=== PATIENT | female | born 1960 | race American Indian/Alaskan Native ===

== ENCOUNTER 2016-10-12 10:41 | Day surgery (SDC) | payer MEDICAID ==
--- NOTE | 2016-10-12 12:43 | Anesthesia Consultation ---
Anesthesia Consult and Med Hx Date of service: 10/12/16 - Airway Anesthetic Teeth Evaluation: Poor (missing teeth), Chipped, Caps, Crowns ROM Head & Neck: Adequate Mental/Hyoid Distance: Adequate Mallampati Class: Class IV Intubation Access Assessment: Possibly Difficult - Pulmonary Exam CTA: Yes - Cardiac Exam Cardiac Exam: RRR - Pre-Operative Health Status ASA Pre-Surgery Classification: ASA3 Proposed Anesthetic Plan: MAC - Pulmonary Hx Smoking: No - Cardiovascular System Hx Hypertension: Yes - Gastrointestinal Hx Ulcer: Yes - Endocrine Hx Liver Disease: Yes (Hepatitis C in remission) Hx Insulin Dependent Diabetes: Yes - Hematic Hx Anemia: No Hx Sickle Cell Disease: No - Other Systems Hx Alcohol Use: No Hx Substance Use: No Hx Cancer: No Hx Obesity: No - Additional Comments Anesthesia Medical History Comments: high cholesterol
--- NOTE | 2016-10-12 12:49 | History and Physical Report ---
History of Present Illness Date of examination: 10/12/16 Date of admission: 10/12/2016 Chief complaint: Colorectal cancer screening History of present illness: 56 year old female referred for colorectal cancer screening. Denies any complaints Past History Past Medical History: diabetes, hypertension, hyperlipidemia Medications and Allergies Allergies Allergy/AdvReac Type Severity Reaction Status Date / Time codeine Allergy Swelling Verified 07/11/16 09:05 Home Medications Medication Instructions Recorded Confirmed Last Taken Type Atorvastatin (Nf) [Lipitor] 10 mg PO QHS 08/11/13 08/11/13 08/11/13 History Hydralazine HCl [Apresoline TAB] 50 mg PO Q12H 08/11/13 08/11/13 Unknown History Lisinopril/Hydrochlorothiazide 10 mg PO DAILY 08/11/13 08/11/13 Unknown History [Zestoretic 20-12.5 mg] Metformin HCl [Fortamet ER] 1,000 mg PO BID 08/11/13 08/11/13 Unknown History Nizatidine 300 mg PO QHS 08/11/13 08/11/13 Unknown History Simvastatin [Zocor TAB] 20 mg PO HS 08/11/13 08/11/13 Unknown History Ziprasidone HCl [Geodon] 80 mg PO DAILY 08/11/13 08/11/13 Unknown History carBAMazepine [TEGretol] 200 mg PO HS 08/11/13 08/11/13 Unknown History clonazePAM [KlonoPIN] 1 mg PO 08/11/13 08/11/13 Unknown History diphenhydrAMINE [Benadryl CAP] 50 mg PO HS 08/11/13 08/11/13 Unknown History Butalb/Acetaminophen/Caffeine 1 cap PO Q8HR PRN #30 cap 07/11/16 Unknown Rx [Fioricet 50-300-40 mg CAP] Active Meds: Active Medications Sodium Chloride (Nacl 0.9% 1000 Ml) 1,000 mls @ 50 mls/hr IV DIRECT YAHIR Last Admin: 10/12/16 12:38 Dose: 50 mls/hr Review of Systems All systems: negative Exam - Constitutional Vitals: Temp Pulse Resp BP Pulse Ox 98.3 F 68 13 120/77 97 10/12/16 12:24 10/12/16 12:24 10/12/16 12:24 10/12/16 12:24 10/12/16 12:24 General appearance: Present: no acute distress, well-nourished - EENT Eyes: Present: PERRL ENT: hearing intact, clear oral mucosa - Neck Neck: Present: supple, normal ROM - Respiratory Respiratory effort: normal Respiratory: bilateral: CTA - Cardiovascular Heart Sounds: Present: S1 & S2. Absent: rub, click - Extremities Extremities: pulses symmetrical, No edema Peripheral Pulses: within normal limits - Abdominal General gastrointestinal: Present: soft, non-tender, non-distended, normal bowel sounds Female genitourinary: Present: normal - Integumentary Integumentary: Present: clear, warm, dry - Musculoskeletal Musculoskeletal: gait normal, strength equal bilaterally - Psychiatric Psychiatric: appropriate mood/affect, intact judgment & insight - Neurologic Neurologic: CNII-XII intact, moves all extremities Assessment and Plan Coloprectal cancer screening. Plan: Full colonoscopy
--- NOTE | 2016-10-12 12:51 | Operative Report ---
Operative Report Operative Report: Date of procedure: 10/12/2016 Procedure: Colonoscopy with ablation. Attending physician: Ronald Luna MD Golf Caddie: Ronald Luna MD Indication: Patient is a 56-year-old female who presents for screening colonoscopy. A colonoscopy is done to evaluate patient so treatment may be directed based on the findings. Consent: Informed consent was obtained after advising the patient and family regarding nature of this procedure, its indications, potential benefits as well as possible complications including but not limited to bleeding perforation and adverse reaction to medication, infection as well as other cardiopulmonary complications. An informed written and verbal consent was then obtained after due opportunity was provided for questions and answers. Monitoring: Patient was monitored continuously with pulse oximetry and electrocardiographic recordings as well as blood pressure recordings. Vital signs remained stable throughout this procedure with no untoward events. Preoperative assessment: Patient was assessed immediately prior to this procedure for capacity to tolerate monitored anesthesia care and moderate sedation as well as general anesthesia. Patient's ASA classification is 2, Mallampati class is 2, Hyomental distance is 3. Instrument: Fujinon videocolonoscope Medications: Propofol given intravenously in divided doses. For details please refer to anesthesia records. Description of procedure: Patient was placed in the left lateral decubitus position after achieving sedation, a digital rectal examination was performed following which the colonoscope was introduced into the anal verge and advanced to the cecum which was identified by the cecal valve, the appendiceal orifice, as well as by the cecal strap and direct transillumination. The colonoscope was subsequently withdrawn with careful inspection of all mucosal surfaces. Patient tolerated this procedure well and was subsequently taken to the recovery room. The following findings were noted. Findings: There was liquid stool seen in various sections of the colon. There was a few scattered diverticula seen in the sigmoid colon. There was a somewhat irregular mucosal surface seen in the transverse colon. This area was ablated . On the retroflex view at the anal verge, patient had internal hemorrhoids. Impression: Irregular mucosal surface in the transverse colon status post ablation. Mild Colonic diverticulosis. Retained stool. Internal hemorrhoids. Plan:High-fiber diet. Repeat colonoscopy in 5 years.
[2016-10-12] MEDS ORDERED: XYLOCAINE MPF 2% ONE (12:57)
[2016-10-12] MEDS ORDERED: NACL 0.9% 1000 ML 1,000 ML IV SCH (13:00)
[2016-10-12] MEDS ORDERED: GI SPOT IJ ONE (13:07)
--- NOTE | 2016-10-12 13:31 | Discharge Summary ---
Short Stay Discharge Plan Activity: advance as tolerated Weight Bearing Status: Weight Bear as Tolerated Diet: regular
--- NOTE | 2016-10-12 13:34 | Post Anesthesia Evaluation ---
- Post Anesthesia Evaluation Patient Participated: Yes Airway Patent: Yes Stable Respiratory Function: Yes Nausea/Vomiting: No Temp > 96.8F: Yes Pain Manageable: Yes Adequeate Hydration: Yes Anesthesia Complications: No Block Receding Appropriately: Not Applicable Patient on Ventilator: No
[2016-10-12] MEDS ORDERED: DIPRIVAN 10 MG/ML IV ONE ×3 (14:15)
[2016-10-12 15:51] VITALS: BP 124/88
== END 2016-10-12 10:42 | disposition home or self-care (01) ==
LOC: GIO 10:41
PROVIDERS: ATTEND Internal Medicine Gastroenterology
DX: Z12.11 Encounter for screening for malignant neoplasm of colon (principal); K63.89 Other specified diseases of intestine; K57.30 Diverticulosis of large intestine without perforation or abscess without bleeding; K64.8 Other hemorrhoids; E11.9 Type 2 diabetes mellitus without complications; I10 Essential (primary) hypertension; E78.5 Hyperlipidemia, unspecified; B19.20 Unspecified viral hepatitis C without hepatic coma; Z87.19 Personal history of other diseases of the digestive system
CPT/HCPCS: 45388; 82962; J2704

== ENCOUNTER 2016-10-15 08:14 | Inpatient (IN) | payer MEDICAID ==
[2016-10-15 08:43] LABS: Basophils % (Auto) 0.5 % (0.0-1.8); Eosinophils % (Auto) 0.2 % (0.0-4.3); Hematocrit 38.2 % (30.3-42.9); Hemoglobin 12.4 gm/dl (10.1-14.3); Mean Corpuscular HGB Conc 33 % (30-34); Mean Corpuscular Hemoglobin 31 pg (28-32); Mean Corpuscular Volume 95 fl (79-97); Platelet Count 234 K/mm3 (140-440); Red Blood Count 4.01 M/mm3 (3.65-5.03); Red Cell Distribution Width 12.6 % (13.2-15.2); White Blood Count 10.2 K/mm3 (4.5-11.0)
[2016-10-15 09:03] LABS: Alanine Aminotransferase 23 units/L (7-56); Albumin 3.9 g/dL (3.9-5); Alkaline Phosphatase 54 units/L (35-129); Anion Gap 20 mmol/L; BUN/Creatinine Ratio 9.09; Bilirubin,Total 0.4 mg/dL (0.1-1.2); Blood Urea Nitrogen 10 mg/dL (7-17); Calcium 9.2 mg/dL (8.4-10.2); Carbon Dioxide 25 mmol/L (22-30); Chloride 98.1 mmol/L (98-107); Glucose 217 mg/dL (65-100); Lipase 31 units/L (13-60); Potassium 3.9 mmol/L (3.6-5.0); Sodium 139 mmol/L (137-145)
[2016-10-15 09:08] LABS: Bacteria,Urine 1+ /HPF (Negative); Bilirubin,Urine NEG (Negative); Blood,Urine NEG (Negative); Ketones,Urine NEG (Negative); Leukocyte Esterase,Urine MOD (Negative); Mucus,Urine FEW /HPF; Nitrite,Urine NEG (Negative); Urobilinogen,Urine < 2.0 mg/dL (<2.0)
[2016-10-15] MEDS ORDERED: ZOFRAN ODT ONE (11:12)
[2016-10-15] MEDS ORDERED: NACL 0.9% 1000 ML IV ONE (11:30)
[2016-10-15] MEDS ORDERED: TORADOL IV ONE ×2 (13:39→13:41)
--- NOTE | 2016-10-15 14:14 | Emergency Department Report ---
HPI - General Chief Complaint: Abdominal Pain Time Seen by Provider: 10/15/16 11:10 - HPI HPI: Chief complaint: Right flank pain HPI: Patient is a 56-year-old female with a history of diabetes, hypertension and elevated cholesterol complains of right flank pain 2 days. Patient denies fever or dysuria. Patient states she did have some nausea and vomiting today. Patient denies previous history of kidney stones. Patient has been taking her medications and states her sugars have been well-controlled. Mode of arrival: [private car] Source: [Patient] Began: 2 days Duration: Continuous Context: See above Quality: Sharp Severity: 10 out of 10 Improved with: Nothing Worsened with: Palpation Associated signs and symptoms: See above ED Past Medical Hx - Past Medical History Previous Medical History?: Yes Hx Hypertension: Yes Hx Diabetes: Yes Hx Liver Disease: Yes (Hepatitis C in remission) Hx Arthritis: Yes Hx Headaches / Migraines: Yes (MIGRAINES) Hx Psychiatric Treatment: Yes Additional medical history: high cholesterol, bipolar, schizophrenia, manic , hep c - Surgical History Past Surgical History?: Yes Additional Surgical History: Tubaligation - Social History Smoking Status: Former Smoker Substance Use Type: Prescribed - Medications Home Medications: Home Medications Medication Instructions Recorded Confirmed Last Taken Type Atorvastatin (Nf) [Lipitor] 10 mg PO QHS 08/11/13 10/12/16 10/10/16 History Hydralazine HCl [Apresoline TAB] 50 mg PO Q12H 08/11/13 10/12/16 10/10/16 History Lisinopril/Hydrochlorothiazide 10 mg PO DAILY 08/11/13 10/12/16 10/10/16 History [Zestoretic 20-12.5 mg] Metformin HCl [Fortamet ER] 1,000 mg PO BID 08/11/13 10/12/16 10/10/16 History Nizatidine 300 mg PO QHS 08/11/13 10/12/16 Unknown History Simvastatin [Zocor TAB] 20 mg PO HS 08/11/13 10/12/16 10/10/16 History Ziprasidone HCl [Geodon] 80 mg PO DAILY 08/11/13 10/12/16 10/10/16 History carBAMazepine [TEGretol] 200 mg PO HS 08/11/13 10/12/16 10/10/16 History clonazePAM [KlonoPIN] 1 mg PO DAILY 08/11/13 10/12/16 Unknown History diphenhydrAMINE [Benadryl CAP] 50 mg PO HS 08/11/13 10/12/16 10/10/16 History Butalb/Acetaminophen/Caffeine 1 cap PO Q8HR PRN #30 cap 07/11/16 10/12/16 Unknown Rx [Fioricet 50-300-40 mg CAP] ED Review of Systems ROS: Stated complaint: RT SIDE PAIN Other details as noted in HPI ROS Constitutional: No fever ENT: No uri symptoms Cardiovascular: No chest pain Respiratory: No sob or cough GI: No diarrhea : No dysuria frequency or urgency, Skin: No rash Neuro: No focal weakness or numbness Psych: Bipolar Chilo/lymph: No edema Physical Exam - Physical Exam Vital Signs: Vital Signs 10/15/16 10/15/16 10/15/16 08:26 11:22 13:41 Temperature 98.8 F 99.9 F H Pulse Rate 92 H Respiratory 18 20 18 Rate Blood Pressure 108/76 O2 Sat by Pulse 100 Oximetry Physical Exam: GENERAL: The patient is well-developed well-nourished. HEENT: Normocephalic. Atraumatic. Extraocular motions are intact. Patient has moist mucous membranes. NECK: Supple. No meningitic signs are noted. There is no adenopathy noted. CHEST/LUNGS: Clear to auscultation. There is no respiratory distress noted. HEART/CARDIOVASCULAR: Regular. There is no tachycardia. There is no gallop rub or murmur. ABDOMEN: Abdomen is soft, nontender. Patient has normal bowel sounds. There is no abdominal distention. Right flank tenderness. SKIN: There is no rash. There is no edema. There is no diaphoresis. NEURO: The patient is awake, alert, and oriented. The patient is cooperative. The patient has no focal neurologic deficits. The patient has normal speech. MUSCULOSKELETAL: There is no tenderness or deformity. There is no limitation range of motion. There is no evidence of acute injury. ED Course Vital Signs 10/15/16 10/15/16 10/15/16 08:26 11:22 13:41 Temperature 98.8 F 99.9 F H Pulse Rate 92 H Respiratory 18 20 18 Rate Blood Pressure 108/76 O2 Sat by Pulse 100 Oximetry - Reevaluation(s) Reevaluation #1: 10/15/16 14:14 Patient given a liter of normal saline, 30 mg of IV Toradol and 1 g of IV Rocephin. ED Medical Decision Making - Lab Data Result diagrams: 10/15/16 08:33 10/15/16 08:33 Laboratory Tests 10/15/16 Unknown Ur Specific [place] 1.020 Urine Protein 100 mg/dl Ur Leukocyte Esterase Mod Urine WBC (Auto) 85.0 H Urine RBC (Auto) 13.0 U Epithel Cells (Auto) 1.0 Urine Bacteria (Auto) 1+ - Radiology Data Radiology results: report reviewed (CT scan of the abdomen without contrast shows a questionable mass in the right kidney. Will repeat with IV contrast.) interpreted by me: Reviewed second CT scan with IV contrast with the radiologist he states he is concerned that patient may have an abscess to the right kidney. Critical care attestation.: If time is entered above; I have spent that time in minutes in the direct care of this critically ill patient, excluding procedure time. ED Disposition Clinical Impression: Pyelonephritis, Hyperglycemia, Renal abscess, right Disposition: OP ADMITTED IP TO THIS HOSP Is pt being admited?: Yes Does the pt Need Aspirin: No Condition: Fair Instructions: Abdominal Pain (ED) Referrals: [facility] [Other] - 3-5 Days Time of Disposition: 15:57 (admit to the hospitalist)
[2016-10-15] MEDS ORDERED: ROCEPHIN/NS 1 GM/50 ML 1 GM/50 ML BAG IV ONE (14:16)
[2016-10-15] MEDS ORDERED: NACL ONE ×3 (14:32→14:40)
--- NOTE | 2016-10-15 14:55 | Admit Criteria Form ---
Admission Criteria Documentation: PYELONEPHRITIS, ACUTE Clinical Indications for Admission to Inpatient Care (Place 'X' for any and all applicable criteria): Admission is indicated for ANY ONE of the following 1,2,3,4,5 [ ]I. Outpatient treatment has failed or is not feasible (eg, multidrug- resistant organism).5 [ ]II. beyond 24 weeks' gestation6 [ ]III. Hemodynamic instability [X ]IV. Immunocompromised state (eg, AIDS, diabetes, sickle cell disease) [ ]V. Known renal or urologic abnormalities (eg, indwelling catheter, structural abnormalities, renal calculi, urinary stent, previous urologic surgery) [X ]. Condition that requires drainage procedure, including ANY ONE of the following: [ ]a) Urinary obstruction [ ]b) Pyelitis [ ]c) Pyonephrosis [ X]d) Renal or perinephric abscess [ ]e) Emphysematous pyelonephritis 7 [ ]VII. Inpatient admission required rather than observation care (Also use Pyelonephritis, Acute: Observation Care Criteria as appropriate) because of ANY ONE of the following: [ ]a) High fever or infection requiring inpatient admission as indicated by ANY ONE of [id number] [ ]A. Documented bacteremia [ ]B. Temp>104.9 [id number] (oral) [ ]C. Temp>103.10F (oral) or <96.80F (rectal) that does not respond to all emergency treatment [ ]b) Acute renal failure [ ]c) Other significant finding or clinical condition judged not to be within the scope of observation care [ ]d) IV fluid to replace significant ongoing (eg, for over 24hrs) losses (> 3 L/m2 per day) [ ]e) Other condition,treatment or monitoring requiring inpatient admission The original [facility] content created by [employer] has been revised. The portions of the content which have been revised are identified through the use of italic text or in bold, and [facility] has neither reviewed nor approved the modified material. All other unmodified content is copyright [facility] [employer] [facility] [employer] Please see references footnoted in the original [facility] [employer] edition 2016 Admission Criteria Met: Yes
--- NOTE | 2016-10-15 16:03 | Cat Scan Report ---
CT of the abdomen and pelvis with and without IV contrast. History: Right flank pain. Findings: The liver, spleen, and pancreas are normal.. On the precontrast study, there is an ill-defined round hypodensity in the upper pole of the right kidney measuring approximately 2.9 cm. The margins are indistinct in the internal CT numbers measure greater than water density. There is perinephric stranding on the right. After contrast administration, the upper pole lesion remains hypodense with no internal enhancement. However, the margins remain somewhat indistinct and slightly lobulated. There appears to be an internal septation in the cephalad component of this lesion. A 1 cm in diameter simple cyst is seen in the lower pole of the left kidney which is otherwise normal. There are no pelvic masses or abnormal fluid collections. The uterus and adnexal regions are unremarkable. Impression: 1. 2.9 cm hypodense mass in the upper pole of the right kidney without enhancement. There is slight lobulation, internal septation, and internal CT numbers on the precontrast study greater than water. Given the clinical symptoms and perinephric stranding, the differential considerations are between renal abscess versus complex renal cyst. After appropriate medical management, repeat imaging in 4-6 weeks is recommended to assess interval change. 2. Left simple renal cyst.
[2016-10-15] MEDS ORDERED: TYLENOL PO ONE (19:28)
[2016-10-15] MEDS ORDERED: TYLENOL ONE (19:41)
[2016-10-15] MEDS ORDERED: FIORICET PO PRN (23:24)
[2016-10-15] MEDS ORDERED: ZOFRAN IV PRN (23:31)
--- NOTE | 2016-10-15 23:34 | Event Note ---
Date: 10/15/16 See H/p in reports
[2016-10-16] MEDS: NACL 0.9% 1000 ML 1,000 ML IV SCH (00:31)
[2016-10-16] MEDS: APRESOLINE PO SCH ×3 (00:31→22:10)
[2016-10-16] MEDS: DILAUDID IV PRN (00:36)
[2016-10-16] MEDS ORDERED: GLUCOPHAGE XR PO SCH (08:00)
--- NOTE | 2016-10-16 09:11 | History and Physical Report ---
CHIEF COMPLAINT: Right flank pain for 2 days. HISTORY OF PRESENT ILLNESS: A 56-year-old -[place] female with a history of hypertension, diabetes, hepatitis C, ____, osteoarthritis, and migraines comes in for right flank pain of 2 days' duration. Denies fever and chills. Denies dysuria. She has pain of 8 on a scale 1-10. This is the first episode. Denies any history of kidney stones. The patient states that diabetes is well controlled. No hematuria. PAST MEDICAL HISTORY: As mentioned hypertension, diabetes, hepatitis C in remission, arthritis, migraines, psychiatric treatment, high cholesterol, bipolar disorder, schizophrenia, manic depressive, and hepatitis C. SURGICAL HISTORY: Tubal ligation. SOCIAL HISTORY: Former smoker. CURRENT MEDICATIONS: Lipitor 10 mg p.o. daily, hydralazine 50 mg p.o. q.12h., Zestoretic 20/12.5 daily, metformin 1000 mg twice a day, nizatidine 300 mg p.o. at bedtime, simvastatin 20 mg p.o. at bedtime, Geodon 80 mg p.o. daily, Tegretol 200 mg p.o. at bedtime, Klonopin 1 mg p.o. daily, Benadryl 50 mg p.o. at bedtime, Fioricet 1 capsule p.o. q.8h. p.r.n. FAMILY HISTORY: Significant for hypertension. REVIEW OF SYSTEMS: CONSTITUTIONAL: No fever. No chills. No weight loss. No weight gain. HEENT: No sore throat. No postnasal drip. CVS: No chest pain. No palpitations. No shortness of breath on exertion. RESPIRATORY SYSTEM: No cough. No wheezing. GASTROINTESTINAL: No nausea. No vomiting. GENITOURINARY SYSTEM: Right flank pain present. No dysuria. MUSCULOSKELETAL: No joint pain. No muscle pain. CHILD CARE CENTRE DIRECTOR: No syncope. No seizures. SKIN: No rashes. A 14-point review of systems was done; other than right flank pain essentially normal review of systems. PHYSICAL EXAMINATION: GENERAL: On examination, middle-aged female, cooperative during examination. Lying in bed, in slight pain pointing to the abdomen. VITAL SIGNS: Temperature 98.8, pulse is 92, respirations are 18, blood pressure is 108/76, and sats 100%. HEENT: Unremarkable. Pupils equal and reactive. NECK: Supple. No lymphadenopathy. No thyromegaly. LUNGS: Clear to auscultation and percussion. Good air entry. CVS: S1 and S2 heard. No gallop. No murmur. No rub. Apical impulse in left fifth intercostal space and midclavicular line. ABDOMEN: Soft and benign. Right flank tenderness present. Cardiac slight guarding present in the right flank. Suprapubic, no tenderness. EXTREMITIES: Good pedal pulses. No pedal edema. CHILD CARE CENTRE DIRECTOR: Alert and oriented x4. Nonfocal exam. LABORATORY DATA AND IMAGING STUDIES: CT of the abdomen shows questionable access right kidney. Glucose is 217, BUN and creatinine 10 and 1.1, hemoglobin is 12.4, hematocrit is 38.2, and urine WBC is 85. Urine specific gravity is 1.020. ASSESSMENT AND PLAN: 1. Acute pyelonephritis versus perinephric abscess. ___ acute pyelonephritis given her tenderness, no fever, no chills, and temperature 98.8. We will involve the Urology, but I will start the patient on IV Rocephin 2 gm and IV piggyback 24, pending urine cultures. Urology consulted. 2. Hyperlipidemia. Continue Lipitor 10 mg daily. 3. Hypertension. Continue lisinopril and hydralazine. 4. Type 2 diabetes mellitus. Continue metformin and coverage. 5. Bipolar disorder. Continue with Geodon, Klonopin, and Tegretol 200 mg at bedtime. 6. Headaches. Continue Fioricet q.8 p.r.n. 7. Deep venous thrombosis prophylaxis, Lovenox 40 mg subcutaneous daily. JOB# [id number] [facility]/NTS
[2016-10-16] MEDS: GEODON PO SCH (09:45)
[2016-10-16] MEDS: NOVOLOG SUB-Q SCH ×4 (09:46→22:19)
[2016-10-16] MEDS: ZESTRIL PO SCH (09:47)
[2016-10-16] MEDS: HCTZ PO SCH (09:49)
[2016-10-16] MEDS: LEVAQUIN 750MG/150ML 750 MG/150 ML BAG IV SCH (09:55)
[2016-10-16] MEDS ORDERED: ROCEPHIN/NS 2 GM/100 ML 2 GM/100 ML BAG IV SCH (10:00)
[2016-10-16] MEDS ORDERED: ROCEPHIN 2,000 MG in NACL 0.9% 50 ML IV SCH (10:00)
--- NOTE | 2016-10-16 12:28 | Consultation ---
History of Present Illness - Reason for Consult Consult date: 10/16/16 - History of Present Illness Chief complaint: Right flank pain HPI: Patient is a 56-year-old female with a history of diabetes, hypertension and elevated cholesterol complains of right flank pain 2 days. Patient denies fever or dysuria. Patient states she did have some nausea and vomiting today. Patient denies previous history of kidney stones. Patient has been taking her medications and states her sugars have been well-controlled. CTAP (10-15-16) 2.3 CM MASS IN RT RENAL UPPER POLE(CYST VS ABSCESS) A/P RT FLANK PAIN CYST VS ABSCESS DIABETES (GLUCOSE 200) OBS FOR NOW MAY NEED PERC DRAINAGE ON LEVAQUIN Medications and Allergies Allergies Allergy/AdvReac Type Severity Reaction Status Date / Time codeine Allergy Intermediate Swelling Verified 10/15/16 18:16 Home Medications Medication Instructions Recorded Confirmed Last Taken Type Atorvastatin (Nf) [Lipitor] 40 mg PO QHS 08/11/13 10/15/16 10/10/16 History Hydralazine HCl [Apresoline TAB] 50 mg PO Q12H 08/11/13 10/15/16 10/10/16 History Lisinopril/Hydrochlorothiazide 10 mg PO DAILY 08/11/13 10/15/16 10/10/16 History [Zestoretic 20-12.5 mg] Metformin HCl [Fortamet ER] 500 mg PO BID 08/11/13 10/15/16 10/10/16 History Simvastatin [Zocor TAB] 20 mg PO HS 08/11/13 10/15/16 10/10/16 History Ziprasidone HCl [Geodon] 80 mg PO DAILY 08/11/13 10/15/16 10/10/16 History carBAMazepine [TEGretol] 200 mg PO HS 08/11/13 10/15/16 10/10/16 History clonazePAM [KlonoPIN] 1 mg PO DAILY 08/11/13 10/15/16 Unknown History diphenhydrAMINE [Benadryl CAP] 50 mg PO HS 08/11/13 10/15/16 10/10/16 History Butalb/Acetaminophen/Caffeine 1 cap PO Q8HR PRN #30 cap 07/11/16 10/15/16 Unknown Rx [Fioricet 50-300-40 mg CAP] Active Meds: Active Medications Acetaminophen/Butalbital/Caffeine (Fioricet) 1 tab PO Q8H PRN PRN Reason: Migraine Headache Atorvastatin Calcium (Lipitor) 40 mg PO QHS YAHIR Carbamazepine (Tegretol) 200 mg PO HS [facility] Clonazepam (Klonopin) 1 mg PO Q12HR [facility] Last Admin: 10/16/16 09:45 Dose: 1 mg Diphenhydramine HCl (Benadryl) 50 mg PO HS [facility] Enoxaparin Sodium (Lovenox) 40 mg SUB-Q QDAY@2200 YAHIR Hydralazine HCl (Apresoline) 50 mg PO Q12HR [facility] Last Admin: 10/16/16 09:48 Dose: Not Given Hydrochlorothiazide (Hctz) 12.5 mg PO QDAY [facility] Last Admin: 10/16/16 09:49 Dose: Not Given Hydromorphone HCl (Dilaudid) 1 mg IV Q3H PRN PRN Reason: Pain , Severe (7-10) Last Admin: 10/16/16 00:36 Dose: 1 mg Sodium Chloride (Nacl 0.9% 1000 Ml) 1,000 mls @ 75 mls/hr IV DIRECT [facility] Last Admin: 10/16/16 00:31 Dose: 75 mls/hr Levofloxacin/Dextrose (Levaquin 750mg/150ml) 750 mg in 150 mls @ 100 mls/hr IV Q24HR [facility] PRN Reason: Protocol Last Admin: 10/16/16 09:55 Dose: 100 mls/hr Insulin Aspart (Novolog) 0 units SUB-Q ACHS [facility] PRN Reason: Protocol Last Admin: 10/16/16 12:07 Dose: 2 units Lisinopril (Zestril) 20 mg PO DAILY [facility] Last Admin: 10/16/16 09:47 Dose: 20 mg Metformin HCl (Glucophage Xr) 500 mg PO BIDDIAB [facility] Last Admin: 10/16/16 09:43 Dose: 500 mg Ondansetron HCl (Zofran) 4 mg IV Q3H PRN PRN Reason: Nausea And Vomiting Ziprasidone (Geodon) 80 mg PO DAILY [facility] Last Admin: 10/16/16 09:45 Dose: 80 mg Exam - Constitutional Vitals: Temp Pulse Resp BP Pulse Ox 98.3 F 90 18 109/80 97 10/16/16 08:00 10/16/16 09:48 02/24/17 08:00 10/16/16 09:48 10/16/16 08:00 Results - Labs CBC & Chem 7: 10/15/16 08:33 10/15/16 08:33
[2016-10-16] MEDS ORDERED: D50W (25GM) IV PRN (14:24)
--- NOTE | 2016-10-16 14:36 | Progress Note ---
Assessment and Plan Assessment and plan: Right kidney abscess versus complex cyst, with sepsis - Patient is on IV Levaquin - Patient still shoots fever - Urology consulted and recommended conservative management for now - ID consulted DM type II with hyperglycemia - Sliding scale insulin - We will hold insulin for now Prophylaxis - Lovenox Disposition - Continue inpatient care History Interval history: Patient was seen and evaluated this morning, patient complains of right flank pain, patient has fever overnight. Hospitalist Physical - Physical exam Narrative exam: Not in cardiopulmonary distress. The patient appeared well nourished and normally developed. Vital signs as documented. Head exam is unremarkable. No scleral icterus . Neck is without jugular venous distension, thyromegaly, or carotid bruits. Lungs are clear to auscultation. Cardiac exam reveals regular rate and Rhythm. First and second heart sounds normal. No murmurs, rubs or gallops. Abdominal exam reveals right flank tenderness. Extremities are nonedematous and both femoral and pedal pulses are normal. CANE PUSHER: Alert and oriented 3. No focal weakness. - Constitutional Vitals: Temp Pulse Resp BP Pulse Ox 98.3 F 90 18 109/80 97 10/16/16 08:00 10/16/16 09:48 10/16/16 08:00 10/16/16 09:48 10/16/16 08:00 Results - Labs CBC & Chem 7: 10/15/16 08:33 10/15/16 08:33 Labs: Laboratory Last Values WBC 10.2 K/mm3 (4.5-11.0) 10/15/16 08:33 RBC 4.01 M/mm3 (3.65-5.03) 10/15/16 08:33 Hgb 12.4 gm/dl (10.1-14.3) 10/15/16 08:33 Hct 38.2 % (30.3-42.9) 10/15/16 08:33 MCV 95 fl (79-97) 10/15/16 08:33 MCH 31 pg (28-32) 10/15/16 08:33 MCHC 33 % (30-34) 10/15/16 08:33 RDW 12.6 % (13.2-15.2) L 10/15/16 08:33 Plt Count 234 K/mm3 (140-440) 10/15/16 08:33 Lymph % (Auto) 14.8 % (13.4-35.0) 10/15/16 08:33 [place] % (Auto) 8.8 % (0.0-7.3) H 10/15/16 08:33 Eos % (Auto) 0.2 % (0.0-4.3) 10/15/16 08:33 Baso % (Auto) 0.5 % (0.0-1.8) 10/15/16 08:33 Lymph # 1.5 K/mm3 (1.2-5.4) 10/15/16 08:33 [place] # 0.9 K/mm3 (0.0-0.8) H 10/15/16 08:33 Eos # 0.0 K/mm3 (0.0-0.4) 10/15/16 08:33 Baso # 0.1 K/mm3 (0.0-0.1) 10/15/16 08:33 Seg Neutrophils % 75.7 % (40.0-70.0) H 10/15/16 08:33 Seg Neutrophils # 7.7 K/mm3 (1.8-7.7) 10/15/16 08:33 Sodium 139 mmol/L (137-145) 10/15/16 08:33 Potassium 3.9 mmol/L (3.6-5.0) 10/15/16 08:33 Chloride 98.1 mmol/L (98-107) 10/15/16 08:33 Carbon Dioxide 25 mmol/L (22-30) 10/15/16 08:33 Anion Gap 20 mmol/L 10/15/16 08:33 BUN 10 mg/dL (7-17) 10/15/16 08:33 Creatinine 1.1 mg/dL (0.7-1.2) 10/15/16 08:33 Estimated GFR > 60 ml/min 10/15/16 08:33 BUN/Creatinine Ratio 9.09 % 10/15/16 08:33 Glucose 217 mg/dL (65-100) H 10/15/16 08:33 POC Glucose 99 (70-105) 10/16/16 06:26 Calcium 9.2 mg/dL (8.4-10.2) 10/15/16 08:33 Total Bilirubin 0.4 mg/dL (0.1-1.2) 10/15/16 08:33 AST 21 units/L (5-40) 10/15/16 08:33 ALT 23 units/L (7-56) 10/15/16 08:33 Alkaline Phosphatase 54 units/L (35-129) 10/15/16 08:33 Total Protein 8.0 g/dL (6.3-8.2) 10/15/16 08:33 Albumin 3.9 g/dL (3.9-5) 10/15/16 08:33 Albumin/Globulin Ratio 1.0 % 10/15/16 08:33 Lipase 31 units/L (13-60) 10/15/16 08:33 Urine Color Yellow (Yellow) 10/15/16 Unknown Urine Turbidity Slightly-cloudy (Clear) 10/15/16 Unknown Urine pH 5.0 (5.0-7.0) 10/15/16 Unknown Ur Specific [place] 1.020 (1.003-1.030) 10/15/16 Unknown Urine Protein 100 mg/dl mg/dL (Negative) 10/15/16 Unknown Urine Glucose (UA) Neg mg/dL (Negative) 10/15/16 Unknown Urine Ketones Neg mg/dL (Negative) 10/15/16 Unknown Urine Blood Neg (Negative) 10/15/16 Unknown Urine Nitrite Neg (Negative) 10/15/16 Unknown Urine Bilirubin Neg (Negative) 10/15/16 Unknown Urine Urobilinogen < 2.0 mg/dL (<2.0) 10/15/16 Unknown Ur Leukocyte Esterase Mod (Negative) 10/15/16 Unknown Urine WBC (Auto) 85.0 /HPF (0.0-6.0) H 10/15/16 Unknown Urine RBC (Auto) 13.0 /HPF (0.0-6.0) 10/15/16 Unknown U Epithel Cells (Auto) 1.0 /HPF (0-13.0) 10/15/16 Unknown Urine Bacteria (Auto) 1+ /HPF (Negative) 10/15/16 Unknown Urine Mucus Few /HPF 10/15/16 Unknown
--- NOTE | 2016-10-16 15:38 | Consultation ---
History of Present Illness - Reason for Consult Consult date: 10/16/16 Right renal cyst/abscess - History of Present Illness The patient is a 56-year-old female who presents with right flank pain extending into her right inguinal region. A CT of the abdomen and pelvis was performed which demonstrates an area of decreased attenuation within the upper pole of the right kidney which may represent a complex cyst versus abscess. There is minimal perirenal stranding around the upper pole. Patient became febrile overnight. She is currently stable vital signs. She complains of a several day history of worsening right flank pain as well as a several day history of increased urinary urgency. Medications and Allergies Allergies Allergy/AdvReac Type Severity Reaction Status Date / Time codeine Allergy Intermediate Swelling Verified 10/15/16 18:16 Home Medications Medication Instructions Recorded Confirmed Last Taken Type Atorvastatin (Nf) [Lipitor] 40 mg PO QHS 08/11/13 10/15/16 10/10/16 History Hydralazine HCl [Apresoline TAB] 50 mg PO Q12H 08/11/13 10/15/16 10/10/16 History Lisinopril/Hydrochlorothiazide 10 mg PO DAILY 08/11/13 10/15/16 10/10/16 History [Zestoretic 20-12.5 mg] Metformin HCl [Fortamet ER] 500 mg PO BID 08/11/13 10/15/16 10/10/16 History Simvastatin [Zocor TAB] 20 mg PO HS 08/11/13 10/15/16 10/10/16 History Ziprasidone HCl [Geodon] 80 mg PO DAILY 08/11/13 10/15/16 10/10/16 History carBAMazepine [TEGretol] 200 mg PO HS 08/11/13 10/15/16 10/10/16 History clonazePAM [KlonoPIN] 1 mg PO DAILY 08/11/13 10/15/16 Unknown History diphenhydrAMINE [Benadryl CAP] 50 mg PO HS 08/11/13 10/15/16 10/10/16 History Butalb/Acetaminophen/Caffeine 1 cap PO Q8HR PRN #30 cap 07/11/16 10/15/16 Unknown Rx [Fioricet 50-300-40 mg CAP] Active Meds: Active Medications Acetaminophen/Butalbital/Caffeine (Fioricet) 1 tab PO Q8H PRN PRN Reason: Migraine Headache Atorvastatin Calcium (Lipitor) 40 mg PO QHS COUNTS INCLUDE 234 BEDS AT THE [facility] Carbamazepine (Tegretol) 200 mg PO HS COUNTS INCLUDE 234 BEDS AT THE [facility] Clonazepam (Klonopin) 1 mg PO Q12HR COUNTS INCLUDE 234 BEDS AT THE [facility] Last Admin: 10/16/16 09:45 Dose: 1 mg Dextrose (D50w (25gm)) 50 ml IV PRN PRN PRN Reason: Hypoglycemia Diphenhydramine HCl (Benadryl) 50 mg PO HS COUNTS INCLUDE 234 BEDS AT THE [facility] Enoxaparin Sodium (Lovenox) 40 mg SUB-Q QDAY@2200 YAHIR Hydralazine HCl (Apresoline) 50 mg PO Q12HR COUNTS INCLUDE 234 BEDS AT THE [facility] Last Admin: 10/16/16 09:48 Dose: Not Given Hydrochlorothiazide (Hctz) 12.5 mg PO QDAY COUNTS INCLUDE 234 BEDS AT THE [facility] Last Admin: 10/16/16 09:49 Dose: Not Given Hydromorphone HCl (Dilaudid) 1 mg IV Q3H PRN PRN Reason: Pain , Severe (7-10) Last Admin: 10/16/16 00:36 Dose: 1 mg Sodium Chloride (Nacl 0.9% 1000 Ml) 1,000 mls @ 75 mls/hr IV DIRECT COUNTS INCLUDE 234 BEDS AT THE [facility] Last Admin: 10/16/16 00:31 Dose: 75 mls/hr Levofloxacin/Dextrose (Levaquin 750mg/150ml) 750 mg in 150 mls @ 100 mls/hr IV Q24HR COUNTS INCLUDE 234 BEDS AT THE [facility] PRN Reason: Protocol Last Admin: 10/16/16 09:55 Dose: 100 mls/hr Insulin Aspart (Novolog) 0 units SUB-Q ACHS COUNTS INCLUDE 234 BEDS AT THE [facility] PRN Reason: Protocol Last Admin: 10/16/16 12:07 Dose: 2 units Insulin Detemir (Levemir) 10 units SUB-Q QHS COUNTS INCLUDE 234 BEDS AT THE [facility] Lisinopril (Zestril) 20 mg PO DAILY COUNTS INCLUDE 234 BEDS AT THE [facility] Last Admin: 10/16/16 09:47 Dose: 20 mg Ondansetron HCl (Zofran) 4 mg IV Q3H PRN PRN Reason: Nausea And Vomiting Ziprasidone (Geodon) 80 mg PO DAILY COUNTS INCLUDE 234 BEDS AT THE [facility] Last Admin: 10/16/16 09:45 Dose: 80 mg Review of Systems All systems: negative Exam - Constitutional Vitals: Temp Pulse Resp BP Pulse Ox 98.3 F 90 18 109/80 97 10/16/16 08:00 10/16/16 09:48 10/16/16 08:00 10/16/16 09:48 10/16/16 08:00 General appearance: Present: no acute distress - EENT Eyes: Present: PERRL ENT: hearing intact - Neck Neck: Present: supple, normal ROM - Respiratory Respiratory effort: normal - Abdominal General gastrointestinal: Present: tender (to palpation over the kidney on the right. No guarding.) Female genitourinary: Present: deferred - Rectal Rectal Exam: deferred - Integumentary Integumentary: Present: clear - Psychiatric Psychiatric: appropriate mood/affect, cooperative Results - Labs CBC & Chem 7: 10/15/16 08:33 10/15/16 08:33 - Imaging and Cardiology CT scan - abdomen: report reviewed, image reviewed Assessment and Plan Patient with a history of right flank pain who developed a fever overnight. She is currently receiving appropriate medical management. If there is no significant response, the patient may undergo percutaneous CT-guided needle aspiration of the fluid collection within the right upper pole of her kidney.
[2016-10-16] MEDS: TYLENOL PO PRN (16:09)
--- NOTE | 2016-10-16 20:49 | Consultation ---
History of Present Illness - Reason for Consult Consult date: 10/16/16 SEPSIS Requesting physician: DAHLIA YATES - History of Present Illness Patient is a 56 yo female with multiple medical problems who presented to the hospital with two day history of right flank pain with associated fever. Patient also had nausea. CT andomen showed a fluid collection in the upper pole of the right kidney with associated strandling. Urine culture is growing gram negative rods hence infectious disease consult. I saw patient at bedside. She denied any other symptoms at this time. PMH DM2 and htn Physical exam Patient had fever of 103. Chest - good air entry CVS - S1S2 ABDOMEN - Did not allow. extremities - No edema. LABS See lab section. ASSESSMENT 1. Sepsis sec to 2. right renal abscess UTI DM2 Recommendation 1. blood culture x2 2. Continue levaquin iv 3. cbc/bmp in am 4. Will reevaluate abx if fever persists. Medications and Allergies Allergies Allergy/AdvReac Type Severity Reaction Status Date / Time codeine Allergy Intermediate Swelling Verified 10/15/16 18:16 Home Medications Medication Instructions Recorded Confirmed Last Taken Type Atorvastatin (Nf) [Lipitor] 40 mg PO QHS 08/11/13 10/15/16 10/10/16 History Hydralazine HCl [Apresoline TAB] 50 mg PO Q12H 08/11/13 10/15/16 10/10/16 History Lisinopril/Hydrochlorothiazide 10 mg PO DAILY 08/11/13 10/15/16 10/10/16 History [Zestoretic 20-12.5 mg] Metformin HCl [Fortamet ER] 500 mg PO BID 08/11/13 10/15/16 10/10/16 History Simvastatin [Zocor TAB] 20 mg PO HS 08/11/13 10/15/16 10/10/16 History Ziprasidone HCl [Geodon] 80 mg PO DAILY 08/11/13 10/15/16 10/10/16 History carBAMazepine [TEGretol] 200 mg PO HS 08/11/13 10/15/16 10/10/16 History clonazePAM [KlonoPIN] 1 mg PO DAILY 08/11/13 10/15/16 Unknown History diphenhydrAMINE [Benadryl CAP] 50 mg PO HS 08/11/13 10/15/16 10/10/16 History Butalb/Acetaminophen/Caffeine 1 cap PO Q8HR PRN #30 cap 07/11/16 10/15/16 Unknown Rx [Fioricet 50-300-40 mg CAP] Active Meds: Active Medications Acetaminophen (Tylenol) 650 mg PO Q6H PRN PRN Reason: Pain, Mild (1-3) Last Admin: 10/16/16 16:09 Dose: 650 mg Acetaminophen/Butalbital/Caffeine (Fioricet) 1 tab PO Q8H PRN PRN Reason: Migraine Headache Atorvastatin Calcium (Lipitor) 40 mg PO QHS [facility] Carbamazepine (Tegretol) 200 mg PO HS [facility] Clonazepam (Klonopin) 1 mg PO Q12HR [facility] Last Admin: 10/16/16 09:45 Dose: 1 mg Dextrose (D50w (25gm)) 50 ml IV PRN PRN PRN Reason: Hypoglycemia Diphenhydramine HCl (Benadryl) 50 mg PO HS [facility] Enoxaparin Sodium (Lovenox) 40 mg SUB-Q QDAY@2200 YAHIR Hydralazine HCl (Apresoline) 50 mg PO Q12HR [facility] Last Admin: 10/16/16 09:48 Dose: Not Given Hydrochlorothiazide (Hctz) 12.5 mg PO QDAY [facility] Last Admin: 10/16/16 09:49 Dose: Not Given Hydromorphone HCl (Dilaudid) 1 mg IV Q3H PRN PRN Reason: Pain , Severe (7-10) Last Admin: 10/16/16 00:36 Dose: 1 mg Sodium Chloride (Nacl 0.9% 1000 Ml) 1,000 mls @ 75 mls/hr IV DIRECT [facility] Last Admin: 10/16/16 00:31 Dose: 75 mls/hr Levofloxacin/Dextrose (Levaquin 750mg/150ml) 750 mg in 150 mls @ 100 mls/hr IV Q24HR YAHIR PRN Reason: Protocol Last Admin: 10/16/16 09:55 Dose: 100 mls/hr Insulin Aspart (Novolog) 0 units SUB-Q ACHS YAHIR PRN Reason: Protocol Last Admin: 10/16/16 17:00 Dose: Not Given Insulin Detemir (Levemir) 10 units SUB-Q QHS [facility] Lisinopril (Zestril) 20 mg PO DAILY [facility] Last Admin: 10/16/16 09:47 Dose: 20 mg Ondansetron HCl (Zofran) 4 mg IV Q3H PRN PRN Reason: Nausea And Vomiting Ziprasidone (Geodon) 80 mg PO DAILY YAHIR Last Admin: 10/16/16 09:45 Dose: 80 mg Physical Examination - Constitutional Vitals: Vital Signs Temp Pulse Resp BP Pulse Ox 100.4 F H 96 H 18 127/82 97 10/16/16 18:00 10/16/16 16:00 10/16/16 16:00 10/16/16 16:00 10/16/16 10:00 Temperature -Last 24 Hours Temperature 100.4 F Temperature 103 F Temperature 98.3 F Temperature 102.9 F Results - Labs CBC & Chem 7: 10/15/16 08:33 10/15/16 08:33 Labs: Abnormal lab results 10/16/16 10/16/16 10/16/16 Range/Units 11:24 14:57 16:21 POC Glucose 174 H 111 H (70-105) Hemoglobin A1c 6.4 H (4-6) %
[2016-10-16] MEDS: BENADRYL PO SCH (22:09)
[2016-10-16] MEDS: LOVENOX SUB-Q SCH (22:10)
[2016-10-16] MEDS: LEVEMIR SUB-Q SCH (22:11)
--- NOTE | 2016-10-17 01:54 | Consultation ---
REASON FOR CONSULTATION: Right renal abscess. REFERRING PHYSICIAN: Gena Alexis MD HISTORY OF PRESENT ILLNESS: This is a 56-year-old female presented to the Emergency Room with right flank pain. She has a history of diabetes. CT of abdomen and pelvis revealed a 2 cm cyst versus abscess. She has a history of diabetes, hypertension, and hyperlipidemia. PHYSICAL EXAMINATION: GENERAL: She is alert and oriented. VITAL SIGNS: Temperature on admission 102.9, now 98, respirations 18, pulse 90, and BP 109/80. BACK: No CVA tenderness. ABDOMEN: Soft. LABORATORY DATA: Hemoglobin and hematocrit of 12 and 38 respectively, white count 10,000, platelets 234,000. BUN and creatinine of 10 and 1.1 respectively. Glucose 217. ASSESSMENT: Right renal mass versus abscess, 2 cm; diabetes, poorly controlled, glucose 217. PLAN: Continue antibiotic therapy. The patient may continue antibiotic therapy and observation at this time. She may require CT drainage of this mass versus surgical intervention. JOB# [id number] C/NTS
[2016-10-17 06:33] LABS: Basophils % (Auto) 0.4 % (0.0-1.8); Eosinophils % (Auto) 0.8 % (0.0-4.3); Hematocrit 34.5 % (30.3-42.9); Hemoglobin 11.4 gm/dl (10.1-14.3); Mean Corpuscular HGB Conc 33 % (30-34); Mean Corpuscular Hemoglobin 31 pg (28-32); Mean Corpuscular Volume 94 fl (79-97); Platelet Count 207 K/mm3 (140-440); Red Blood Count 3.67 M/mm3 (3.65-5.03); Red Cell Distribution Width 12.5 % (13.2-15.2); White Blood Count 6.1 K/mm3 (4.5-11.0)
[2016-10-17 06:54] LABS: Anion Gap 19 mmol/L; Blood Urea Nitrogen 8 mg/dL (7-17); Calcium 8.4 mg/dL (8.4-10.2); Carbon Dioxide 25 mmol/L (22-30); Chloride 101.4 mmol/L (98-107); Glucose 103 mg/dL (65-100); Potassium 3.9 mmol/L (3.6-5.0); Sodium 141 mmol/L (137-145)
[2016-10-17] MEDS: NOVOLOG SUB-Q SCH ×4 (08:25→23:10)
[2016-10-17] MEDS: GEODON PO SCH (10:34)
[2016-10-17] MEDS: LEVAQUIN 750MG/150ML 750 MG/150 ML BAG IV SCH (10:34)
[2016-10-17] MEDS: ZESTRIL PO SCH (10:34)
[2016-10-17] MEDS: HCTZ PO SCH (10:34)
[2016-10-17] MEDS: APRESOLINE PO SCH ×2 (10:36→21:48)
[2016-10-17] MEDS: TYLENOL PO PRN (10:41)
--- NOTE | 2016-10-17 12:26 | Progress Note ---
Subjective Date of service: 10/17/16 Interval history: Chief complaint: Right flank pain HPI: Patient is a 56-year-old female with a history of diabetes, hypertension and elevated cholesterol complains of right flank pain 2 days. Patient denies fever or dysuria. Patient states she did have some nausea and vomiting today. Patient denies previous history of kidney stones. Patient has been taking her medications and states her sugars have been well-controlled. CTAP (10-15-16) 2.3 CM MASS IN RT RENAL UPPER POLE(CYST VS ABSCESS) seen by Dr. Ferrell (IR) temp 100 WBC normal 6 pt feels better A/P RT FLANK PAIN CYST VS ABSCESS DIABETES (GLUCOSE 100s) OBS FOR NOW MAY NEED PERC DRAINAGE ON LEVAQUIN Objective - Constitutional Vitals: Vital Signs - 12hr 10/17/16 10/17/16 10/17/16 08:03 10:34 10:36 Temperature 100.2 F H Pulse Rate 89 89 Pulse Rate [ 84 Right Radial] Respiratory 18 Rate Blood Pressure 104/69 104/69 Blood Pressure 104/64 [Right Arm] O2 Sat by Pulse 99 Oximetry - Labs CBC & Chem 7: 10/17/16 05:55 10/17/16 05:55 Labs: Abnormal lab results 10/16/16 10/16/16 10/16/16 Range/Units 11:24 14:57 16:21 RDW (13.2-15.2) % [place] % (Auto) (0.0-7.3) % Glucose (65-100) mg/dL POC Glucose 174 H 111 H (70-105) Hemoglobin A1c 6.4 H (4-6) % 10/17/16 10/17/16 Range/Units 05:55 05:55 RDW 12.5 L (13.2-15.2) % [place] % (Auto) 13.9 H (0.0-7.3) % Glucose 103 H (65-100) mg/dL POC Glucose (70-105) Hemoglobin A1c (4-6) %
--- NOTE | 2016-10-17 14:21 | Progress Note ---
Assessment and Plan Assessment and plan: Right kidney abscess versus complex cyst, with sepsis - Patient is on IV Levaquin - Patient still shoots fever - Urology consulted and recommended conservative management for now - ID consulted DM type II with hyperglycemia - Sliding scale insulin - We will hold insulin for now Prophylaxis - Lovenox Disposition - Continue inpatient care History Interval history: Patient was seen and evaluated this morning, right flank pain is getting better , patient has fever overnight. Hospitalist Physical - Physical exam Narrative exam: Not in cardiopulmonary distress. The patient appeared well nourished and normally developed. Vital signs as documented. Head exam is unremarkable. No scleral icterus . Neck is without jugular venous distension, thyromegaly, or carotid bruits. Lungs are clear to auscultation. Cardiac exam reveals regular rate and Rhythm. First and second heart sounds normal. No murmurs, rubs or gallops. Abdominal exam reveals no tenderness on the right flank. Extremities are nonedematous and both femoral and pedal pulses are normal. BREAKDOWN MAN: Alert and oriented 3. No focal weakness. - Constitutional Vitals: Temp Pulse Resp BP Pulse Ox 100.2 F H 89 18 104/69 99 10/17/16 08:03 10/17/16 10:36 10/17/16 08:03 10/17/16 10:36 10/17/16 08:03 General appearance: Present: no acute distress Results - Labs CBC & Chem 7: 10/17/16 05:55 10/17/16 05:55 Labs: Laboratory Last Values WBC 6.1 K/mm3 (4.5-11.0) 10/17/16 05:55 RBC 3.67 M/mm3 (3.65-5.03) 10/17/16 05:55 Hgb 11.4 gm/dl (10.1-14.3) 10/17/16 05:55 Hct 34.5 % (30.3-42.9) 10/17/16 05:55 MCV 94 fl (79-97) 10/17/16 05:55 MCH 31 pg (28-32) 10/17/16 05:55 MCHC 33 % (30-34) 10/17/16 05:55 RDW 12.5 % (13.2-15.2) L 10/17/16 05:55 Plt Count 207 K/mm3 (140-440) 10/17/16 05:55 Lymph % (Auto) 29.3 % (13.4-35.0) 10/17/16 05:55 [place] % (Auto) 13.9 % (0.0-7.3) H 10/17/16 05:55 Eos % (Auto) 0.8 % (0.0-4.3) 10/17/16 05:55 Baso % (Auto) 0.4 % (0.0-1.8) 10/17/16 05:55 Lymph # 1.8 K/mm3 (1.2-5.4) 10/17/16 05:55 [place] # 0.8 K/mm3 (0.0-0.8) 10/17/16 05:55 Eos # 0.0 K/mm3 (0.0-0.4) 10/17/16 05:55 Baso # 0.0 K/mm3 (0.0-0.1) 10/17/16 05:55 Seg Neutrophils % 55.6 % (40.0-70.0) 10/17/16 05:55 Seg Neutrophils # 3.4 K/mm3 (1.8-7.7) 10/17/16 05:55 Sodium 141 mmol/L (137-145) 10/17/16 05:55 Potassium 3.9 mmol/L (3.6-5.0) 10/17/16 05:55 Chloride 101.4 mmol/L (98-107) 10/17/16 05:55 Carbon Dioxide 25 mmol/L (22-30) 10/17/16 05:55 Anion Gap 19 mmol/L 10/17/16 05:55 BUN 8 mg/dL (7-17) 10/17/16 05:55 Creatinine 0.8 mg/dL (0.7-1.2) 10/17/16 05:55 Estimated GFR > 60 ml/min 10/17/16 05:55 BUN/Creatinine Ratio 10.00 % 10/17/16 05:55 Glucose 103 mg/dL (65-100) H 10/17/16 05:55 POC Glucose 115 (70-105) H 10/17/16 11:08 Hemoglobin A1c 6.4 % (4-6) H 10/16/16 14:57 Calcium 8.4 mg/dL (8.4-10.2) 10/17/16 05:55 Total Bilirubin 0.4 mg/dL (0.1-1.2) 10/15/16 08:33 AST 21 units/L (5-40) 10/15/16 08:33 ALT 23 units/L (7-56) 10/15/16 08:33 Alkaline Phosphatase 54 units/L (35-129) 10/15/16 08:33 Total Protein 8.0 g/dL (6.3-8.2) 10/15/16 08:33 Albumin 3.9 g/dL (3.9-5) 10/15/16 08:33 Albumin/Globulin Ratio 1.0 % 10/15/16 08:33 Lipase 31 units/L (13-60) 10/15/16 08:33 Urine Color Yellow (Yellow) 10/15/16 Unknown Urine Turbidity Slightly-cloudy (Clear) 10/15/16 Unknown Urine pH 5.0 (5.0-7.0) 10/15/16 Unknown Ur Specific [place] 1.020 (1.003-1.030) 10/15/16 Unknown Urine Protein 100 mg/dl mg/dL (Negative) 10/15/16 Unknown Urine Glucose (UA) Neg mg/dL (Negative) 10/15/16 Unknown Urine Ketones Neg mg/dL (Negative) 10/15/16 Unknown Urine Blood Neg (Negative) 10/15/16 Unknown Urine Nitrite Neg (Negative) 10/15/16 Unknown Urine Bilirubin Neg (Negative) 10/15/16 Unknown Urine Urobilinogen < 2.0 mg/dL (<2.0) 10/15/16 Unknown Ur Leukocyte Esterase Mod (Negative) 10/15/16 Unknown Urine WBC (Auto) 85.0 /HPF (0.0-6.0) H 10/15/16 Unknown Urine RBC (Auto) 13.0 /HPF (0.0-6.0) 10/15/16 Unknown U Epithel Cells (Auto) 1.0 /HPF (0-13.0) 10/15/16 Unknown Urine Bacteria (Auto) 1+ /HPF (Negative) 10/15/16 Unknown Urine Mucus Few /HPF 10/15/16 Unknown
[2016-10-17] MEDS: DILAUDID IV PRN (19:15)
--- NOTE | 2016-10-17 19:17 | Progress Note ---
Subjective Date of service: 10/17/16 Principal diagnosis: renal abscess Interval history: Patient still has mild fever. Temp 100.2 Chest - good air entry cvs - s1s2 abd - bs+ extremities - no edema LABS See lab section ASSESSMENT 1. Sepsis 2. Renal abscess 3. uti 4. dm2 RECOMMENDATION Patient will need ct guided drainage of abscess by ir. Objective - Constitutional Vitals: Vital Signs Temp Pulse Resp BP Pulse Ox 98.1 F 91 H 14 107/72 99 10/17/16 16:02 10/17/16 16:02 10/17/16 16:02 10/17/16 16:02 10/17/16 08:03 Temperature -Last 24 Hours Temperature 98.1 F Temperature 100.2 F Temperature 100.1 F - Labs CBC & Chem 7: 10/17/16 05:55 10/17/16 05:55 Labs: Abnormal lab results 10/17/16 10/17/16 10/17/16 Range/Units 05:55 05:55 11:08 RDW 12.5 L (13.2-15.2) % [place] % (Auto) 13.9 H (0.0-7.3) % Glucose 103 H (65-100) mg/dL POC Glucose 115 H (70-105) 10/17/16 Range/Units 16:07 RDW (13.2-15.2) % [place] % (Auto) (0.0-7.3) % Glucose (65-100) mg/dL POC Glucose 130 H (70-105)
[2016-10-17] MEDS: BENADRYL PO SCH (21:40)
[2016-10-17] MEDS: LOVENOX SUB-Q SCH (22:02)
[2016-10-17] MEDS: LEVEMIR SUB-Q SCH (22:03)
[2016-10-18] MEDS: NACL 0.9% 1000 ML 1,000 ML IV SCH ×2 (00:16→20:04)
--- NOTE | 2016-10-18 07:50 | Progress Note ---
Assessment and Plan Assessment and plan: Right kidney abscess versus complex cyst, with sepsis - Patient is on IV Levaquin - Patient still shoots fever - Urology consulted and recommended conservative management for now - ID consult appreciated DM type II with hyperglycemia - Sliding scale insulin - We will hold insulin for now Schizophrenia/Bipolar disorder - Stable Prophylaxis - Lovenox Disposition - Continue inpatient care - Will follow with urology recommendations. History Interval history: Patient was seen and evaluated this morning, right flank pain is getting better , No fever overnight. Hospitalist Physical - Physical exam Narrative exam: Not in cardiopulmonary distress. The patient appeared well nourished and normally developed. Vital signs as documented. Head exam is unremarkable. No scleral icterus . Neck is without jugular venous distension, thyromegaly, or carotid bruits. Lungs are clear to auscultation. Cardiac exam reveals regular rate and Rhythm. First and second heart sounds normal. No murmurs, rubs or gallops. Abdominal exam reveals no tenderness on the right flank. Extremities are nonedematous and both femoral and pedal pulses are normal. ASSISTANT PROFESSOR OF THEATER: Alert and oriented 3. No focal weakness. - Constitutional Vitals: Temp Pulse Resp BP Pulse Ox 98.8 F 77 18 102/67 97 10/18/16 00:34 10/18/16 00:34 10/18/16 00:34 10/18/16 00:34 10/18/16 00:34 General appearance: Present: no acute distress Results - Labs CBC & Chem 7: 10/17/16 05:55 10/17/16 05:55 Labs: Laboratory Last Values WBC 6.1 K/mm3 (4.5-11.0) 10/17/16 05:55 RBC 3.67 M/mm3 (3.65-5.03) 10/17/16 05:55 Hgb 11.4 gm/dl (10.1-14.3) 10/17/16 05:55 Hct 34.5 % (30.3-42.9) 10/17/16 05:55 MCV 94 fl (79-97) 10/17/16 05:55 MCH 31 pg (28-32) 10/17/16 05:55 MCHC 33 % (30-34) 10/17/16 05:55 RDW 12.5 % (13.2-15.2) L 10/17/16 05:55 Plt Count 207 K/mm3 (140-440) 10/17/16 05:55 Lymph % (Auto) 29.3 % (13.4-35.0) 10/17/16 05:55 [place] % (Auto) 13.9 % (0.0-7.3) H 10/17/16 05:55 Eos % (Auto) 0.8 % (0.0-4.3) 10/17/16 05:55 Baso % (Auto) 0.4 % (0.0-1.8) 10/17/16 05:55 Lymph # 1.8 K/mm3 (1.2-5.4) 10/17/16 05:55 [place] # 0.8 K/mm3 (0.0-0.8) 10/17/16 05:55 Eos # 0.0 K/mm3 (0.0-0.4) 10/17/16 05:55 Baso # 0.0 K/mm3 (0.0-0.1) 10/17/16 05:55 Seg Neutrophils % 55.6 % (40.0-70.0) 10/17/16 05:55 Seg Neutrophils # 3.4 K/mm3 (1.8-7.7) 10/17/16 05:55 Sodium 141 mmol/L (137-145) 10/17/16 05:55 Potassium 3.9 mmol/L (3.6-5.0) 10/17/16 05:55 Chloride 101.4 mmol/L (98-107) 10/17/16 05:55 Carbon Dioxide 25 mmol/L (22-30) 10/17/16 05:55 Anion Gap 19 mmol/L 10/17/16 05:55 BUN 8 mg/dL (7-17) 10/17/16 05:55 Creatinine 0.8 mg/dL (0.7-1.2) 10/17/16 05:55 Estimated GFR > 60 ml/min 10/17/16 05:55 BUN/Creatinine Ratio 10.00 % 10/17/16 05:55 Glucose 103 mg/dL (65-100) H 10/17/16 05:55 POC Glucose 85 (70-105) 10/18/16 06:48 Hemoglobin A1c 6.4 % (4-6) H 10/16/16 14:57 Calcium 8.4 mg/dL (8.4-10.2) 10/17/16 05:55 Total Bilirubin 0.4 mg/dL (0.1-1.2) 10/15/16 08:33 AST 21 units/L (5-40) 10/15/16 08:33 ALT 23 units/L (7-56) 10/15/16 08:33 Alkaline Phosphatase 54 units/L (35-129) 10/15/16 08:33 Total Protein 8.0 g/dL (6.3-8.2) 10/15/16 08:33 Albumin 3.9 g/dL (3.9-5) 10/15/16 08:33 Albumin/Globulin Ratio 1.0 % 10/15/16 08:33 Lipase 31 units/L (13-60) 10/15/16 08:33 Urine Color Yellow (Yellow) 10/15/16 Unknown Urine Turbidity Slightly-cloudy (Clear) 10/15/16 Unknown Urine pH 5.0 (5.0-7.0) 10/15/16 Unknown Ur Specific [place] 1.020 (1.003-1.030) 10/15/16 Unknown Urine Protein 100 mg/dl mg/dL (Negative) 10/15/16 Unknown Urine Glucose (UA) Neg mg/dL (Negative) 10/15/16 Unknown Urine Ketones Neg mg/dL (Negative) 10/15/16 Unknown Urine Blood Neg (Negative) 10/15/16 Unknown Urine Nitrite Neg (Negative) 10/15/16 Unknown Urine Bilirubin Neg (Negative) 10/15/16 Unknown Urine Urobilinogen < 2.0 mg/dL (<2.0) 10/15/16 Unknown Ur Leukocyte Esterase Mod (Negative) 10/15/16 Unknown Urine WBC (Auto) 85.0 /HPF (0.0-6.0) H 10/15/16 Unknown Urine RBC (Auto) 13.0 /HPF (0.0-6.0) 10/15/16 Unknown U Epithel Cells (Auto) 1.0 /HPF (0-13.0) 10/15/16 Unknown Urine Bacteria (Auto) 1+ /HPF (Negative) 10/15/16 Unknown Urine Mucus Few /HPF 10/15/16 Unknown
[2016-10-18 07:57] LABS: Basophils % (Auto) 0.5 % (0.0-1.8); Eosinophils % (Auto) 3.5 % (0.0-4.3); Hematocrit 33.6 % (30.3-42.9); Hemoglobin 10.9 gm/dl (10.1-14.3); Mean Corpuscular HGB Conc 33 % (30-34); Mean Corpuscular Hemoglobin 31 pg (28-32); Mean Corpuscular Volume 94 fl (79-97); Platelet Count 219 K/mm3 (140-440); Red Blood Count 3.57 M/mm3 (3.65-5.03); Red Cell Distribution Width 12.9 % (13.2-15.2); White Blood Count 4.8 K/mm3 (4.5-11.0)
[2016-10-18] MEDS: NOVOLOG SUB-Q SCH ×4 (07:58→22:41)
[2016-10-18 08:21] LABS: Anion Gap 18 mmol/L; BUN/Creatinine Ratio 11.25; Blood Urea Nitrogen 9 mg/dL (7-17); Calcium 8.6 mg/dL (8.4-10.2); Carbon Dioxide 25 mmol/L (22-30); Chloride 103.7 mmol/L (98-107); Glucose 89 mg/dL (65-100); Potassium 4.3 mmol/L (3.6-5.0); Sodium 142 mmol/L (137-145)
[2016-10-18] MEDS ORDERED: LEVAQUIN PO SCH (10:00)
[2016-10-18] MEDS: LEVAQUIN 750MG/150ML 750 MG/150 ML BAG IV SCH (11:34)
[2016-10-18] MEDS: ZESTRIL PO SCH (11:35)
[2016-10-18] MEDS: GEODON PO SCH (11:40)
[2016-10-18] MEDS: HCTZ PO SCH (11:40)
[2016-10-18] MEDS: APRESOLINE PO SCH (11:40)
[2016-10-18] MEDS: DILAUDID PO PRN (17:05)
--- NOTE | 2016-10-18 18:11 | Progress Note ---
Subjective Date of service: 10/18/16 Principal diagnosis: renal abscess Interval history: No complaints. VS - Afebrile. Chest - good air entry cvs - s1s2 abd - bs+ extremities - no edema LABS See lab section ASSESSMENT 1. Sepsis - resolving 2. Renal abscess 3. uti 4. dm2 RECOMMENDATION In view of resolving symptoms, will recomment repeat ct evaluation of renal abscess. If abscess is resolving on iv abx, then may not do drainage. Objective - Constitutional Vitals: Vital Signs Temp Pulse Resp BP Pulse Ox 98.5 F 84 18 106/68 96 10/18/16 08:35 10/18/16 11:35 10/18/16 08:35 10/18/16 11:35 10/18/16 08:35 Temperature -Last 24 Hours Temperature 98.5 F Temperature 98.8 F - Labs CBC & Chem 7: 10/18/16 07:41 10/18/16 07:41 Labs: Abnormal lab results 10/17/16 10/18/16 10/18/16 Range/Units 20:54 07:41 11:52 RBC 3.57 L (3.65-5.03) M/mm3 RDW 12.9 L (13.2-15.2) % Lymph % (Auto) 41.6 H (13.4-35.0) % Lane % (Auto) 14.5 H (0.0-7.3) % Seg Neutrophils % 39.9 L (40.0-70.0) % POC Glucose 127 H 138 H (70-105) 10/18/16 Range/Units 17:25 RBC (3.65-5.03) M/mm3 RDW (13.2-15.2) % Lymph % (Auto) (13.4-35.0) % Lane % (Auto) (0.0-7.3) % Seg Neutrophils % (40.0-70.0) % POC Glucose 138 H (70-105)
[2016-10-18] MEDS: LOVENOX SUB-Q SCH (21:37)
[2016-10-18] MEDS: BENADRYL PO SCH (21:38)
[2016-10-18] MEDS: LEVEMIR SUB-Q SCH (22:41)
[2016-10-19] MEDS: APRESOLINE PO SCH ×3 (01:47→23:09)
[2016-10-19 06:14] LABS: Basophils % (Auto) 0.5 % (0.0-1.8); Eosinophils % (Auto) 4.8 % (0.0-4.3); Hematocrit 32.9 % (30.3-42.9); Hemoglobin 10.8 gm/dl (10.1-14.3); Mean Corpuscular HGB Conc 33 % (30-34); Mean Corpuscular Hemoglobin 31 pg (28-32); Mean Corpuscular Volume 93 fl (79-97); Platelet Count 238 K/mm3 (140-440); Red Blood Count 3.53 M/mm3 (3.65-5.03); White Blood Count 4.4 K/mm3 (4.5-11.0)
[2016-10-19 06:17] LABS: Anion Gap 15 mmol/L; Blood Urea Nitrogen 7 mg/dL (7-17); Calcium 8.7 mg/dL (8.4-10.2); Carbon Dioxide 26 mmol/L (22-30); Chloride 101.4 mmol/L (98-107); Glucose 87 mg/dL (65-100); Potassium 4.3 mmol/L (3.6-5.0); Sodium 138 mmol/L (137-145)
[2016-10-19] MEDS: NOVOLOG SUB-Q SCH ×4 (07:30→23:07)
--- NOTE | 2016-10-19 10:30 | Event Note ---
Date: 10/19/16 CT scan reviewed. There is decreased perinephric stranding around the upper pole of. Noncontrasted images are suboptimal for complete evaluation of the fluid collection however, fluid collection does appear stable in size from comparison exam. The patient appears to be tolerating antibiotics well. Would recommend that she follow-up in 2 weeks with a repeat renal ultrasound.
--- NOTE | 2016-10-19 10:49 | Progress Note ---
Subjective Date of service: 10/19/16 Principal diagnosis: renal abscess Interval history: Chief complaint: Right flank pain HPI: Patient is a 56-year-old female with a history of diabetes, hypertension and elevated cholesterol complains of right flank pain 2 days. Patient denies fever or dysuria. Patient states she did have some nausea and vomiting today. Patient denies previous history of kidney stones. Patient has been taking her medications and states her sugars have been well-controlled. CTAP (10-15-16) 2.3 CM MASS IN RT RENAL UPPER POLE(CYST VS ABSCESS) seen by Dr. Ferrell (IR) repeat CTAP today - improving temp 98.3 WBC normal 4.4 pt feels better A/P RT FLANK PAIN - improved ABSCESS DIABETES (GLUCOSE 100s) OBS FOR NOW ON LEVAQUIN Objective - Constitutional Vitals: Vital Signs - 12hr 10/18/16 10/19/16 10/19/16 23:00 01:47 08:00 Temperature 98.4 F 98.3 F Pulse Rate [ 66 78 Left] Respiratory 18 20 Rate Blood Pressure 108/64 Blood Pressure 135/71 [Left Arm] Blood Pressure 110/62 [Right Arm] O2 Sat by Pulse 99 97 Oximetry - Labs CBC & Chem 7: 10/19/16 05:25 10/19/16 05:25 Labs: Abnormal lab results 10/18/16 10/18/16 10/18/16 Range/Units 11:52 17:25 21:03 WBC (4.5-11.0) K/mm3 RBC (3.65-5.03) M/mm3 RDW (13.2-15.2) % Lymph % (Auto) (13.4-35.0) % [place] % (Auto) (0.0-7.3) % Eos % (Auto) (0.0-4.3) % Seg Neutrophils % (40.0-70.0) % Seg Neutrophils # (1.8-7.7) K/mm3 POC Glucose 138 H 138 H 169 H (70-105) 10/19/16 Range/Units 05:25 WBC 4.4 L (4.5-11.0) K/mm3 RBC 3.53 L (3.65-5.03) M/mm3 RDW 13.0 L (13.2-15.2) % Lymph % (Auto) 45.8 H (13.4-35.0) % [place] % (Auto) 12.9 H (0.0-7.3) % Eos % (Auto) 4.8 H (0.0-4.3) % Seg Neutrophils % 36.0 L (40.0-70.0) % Seg Neutrophils # 1.6 L (1.8-7.7) K/mm3 POC Glucose (70-105)
[2016-10-19] MEDS: LEVAQUIN 750MG/150ML 750 MG/150 ML BAG IV SCH (11:50)
[2016-10-19] MEDS: GEODON PO SCH (11:51)
[2016-10-19] MEDS: ZESTRIL PO SCH (11:52)
[2016-10-19] MEDS: HCTZ PO SCH (11:52)
--- NOTE | 2016-10-19 12:25 | Cat Scan Report ---
CT ABDOMEN AND PELVIS WITHOUT CONTRAST INDICATION: Right renal abscess/complex cyst. COMPARISON: 10/15/2016 FINDINGS: Noncontrast abdomen and pelvis CT performed. LUNG BASES: Minimal pleural thickening or fluid posteriorly, right more so than left, axial image 46, series 2 may again be present. Normal heart size. No pericardial effusion. Nonspecific distal esophageal wall thickening, not excluded for gastroesophageal reflux and/or hiatal hernia, amongst others. ABDOMEN: Please note that sensitivity to detect small visceral lesions is limited due to the absence of intravenous or oral contrast. A right upper renal cortical hypodense lesion measures 17 HU and approximately 2.6 cm, axial image 145, series 2 with subtle lobulation/septation superiorly previously suspected not as clearly identified on this unenhanced exam. Known 1 cm left lower renal simple cyst not well seen. Otherwise grossly unremarkable unenhanced kidneys, liver, spleen, gallbladder, pancreas, adrenals, IVC and nonaneurysmal abdominal aorta with few atherosclerotic calcifications. No ascites or definite size significant adenopathy. Nonopacified GI tract evaluation limited, though grossly nonobstructive. Normal appendix. Moderate colonic stool/possible constipation. Fat-containing umbilical hernia with a transverse neck of 1.3 cm again noted with subjacent nonobstructive small bowel as on axial image 20, series 2. PELVIS: Rectosigmoid stool. Nonopacified urinary bladder and uterus within normal limits. No free fluid or significant adenopathy. Mild degenerative changes along few spinal levels. CONCLUSION: No significant interval change on this limited, unenhanced exam with right upper renal hypodense lesion again noted, as described. Thank you for the opportunity to participate in this patient's care.
--- NOTE | 2016-10-19 13:21 | Progress Note ---
Assessment and Plan Assessment and plan: Right kidney abscess versus complex cyst, with sepsis - Patient is on IV Levaquin - Patient - She didn't have fever overnight but she complains nausea - Urology consulted and recommended conservative management for now - ID consult appreciated - Interventional radiology recommended ultrasound in 2 weeks DM type II with hyperglycemia - Well-controlled - Sliding scale insulin - We will hold metformin for now Schizophrenia/Bipolar disorder - Stable Prophylaxis - Lovenox Disposition - Continue inpatient care History Interval history: Patient was seen and evaluated this morning, right flank pain is getting better , No fever overnight. She has nausea. Hospitalist Physical - Physical exam Narrative exam: Not in cardiopulmonary distress. The patient appeared well nourished and normally developed. Vital signs as documented. Head exam is unremarkable. No scleral icterus . Neck is without jugular venous distension, thyromegaly, or carotid bruits. Lungs are clear to auscultation. Cardiac exam reveals regular rate and Rhythm. First and second heart sounds normal. No murmurs, rubs or gallops. Abdominal exam reveals no tenderness on the right flank. Extremities are nonedematous and both femoral and pedal pulses are normal. PARISH VISITOR: Alert and oriented 3. No focal weakness. - Constitutional Vitals: Temp Pulse Resp BP Pulse Ox 98.3 F 78 20 110/62 97 10/19/16 08:00 10/19/16 11:51 10/19/16 08:00 10/19/16 11:51 10/19/16 08:00 General appearance: Present: no acute distress Results - Labs CBC & Chem 7: 10/19/16 05:25 10/19/16 05:25 Labs: Laboratory Last Values WBC 4.4 K/mm3 (4.5-11.0) L 10/19/16 05:25 RBC 3.53 M/mm3 (3.65-5.03) L 10/19/16 05:25 Hgb 10.8 gm/dl (10.1-14.3) 10/19/16 05:25 Hct 32.9 % (30.3-42.9) 10/19/16 05:25 MCV 93 fl (79-97) 10/19/16 05:25 MCH 31 pg (28-32) 10/19/16 05:25 MCHC 33 % (30-34) 10/19/16 05:25 RDW 13.0 % (13.2-15.2) L 10/19/16 05:25 Plt Count 238 K/mm3 (140-440) 10/19/16 05:25 Lymph % (Auto) 45.8 % (13.4-35.0) H 10/19/16 05:25 Lane % (Auto) 12.9 % (0.0-7.3) H 10/19/16 05:25 Eos % (Auto) 4.8 % (0.0-4.3) H 10/19/16 05:25 Baso % (Auto) 0.5 % (0.0-1.8) 10/19/16 05:25 Lymph # 2.0 K/mm3 (1.2-5.4) 10/19/16 05:25 Lane # 0.6 K/mm3 (0.0-0.8) 10/19/16 05:25 Eos # 0.2 K/mm3 (0.0-0.4) 10/19/16 05:25 Baso # 0.0 K/mm3 (0.0-0.1) 10/19/16 05:25 Seg Neutrophils % 36.0 % (40.0-70.0) L 10/19/16 05:25 Seg Neutrophils # 1.6 K/mm3 (1.8-7.7) L 10/19/16 05:25 Sodium 138 mmol/L (137-145) 10/19/16 05:25 Potassium 4.3 mmol/L (3.6-5.0) 10/19/16 05:25 Chloride 101.4 mmol/L (98-107) 10/19/16 05:25 Carbon Dioxide 26 mmol/L (22-30) 10/19/16 05:25 Anion Gap 15 mmol/L 10/19/16 05:25 BUN 7 mg/dL (7-17) 10/19/16 05:25 Creatinine 0.7 mg/dL (0.7-1.2) 10/19/16 05:25 Estimated GFR > 60 ml/min 10/19/16 05:25 BUN/Creatinine Ratio 10.00 % 10/19/16 05:25 Glucose 87 mg/dL (65-100) 10/19/16 05:25 POC Glucose 85 (70-105) 10/19/16 11:01 Hemoglobin A1c 6.4 % (4-6) H 10/16/16 14:57 Calcium 8.7 mg/dL (8.4-10.2) 10/19/16 05:25 Total Bilirubin 0.4 mg/dL (0.1-1.2) 10/15/16 08:33 AST 21 units/L (5-40) 10/15/16 08:33 ALT 23 units/L (7-56) 10/15/16 08:33 Alkaline Phosphatase 54 units/L (35-129) 10/15/16 08:33 Total Protein 8.0 g/dL (6.3-8.2) 10/15/16 08:33 Albumin 3.9 g/dL (3.9-5) 10/15/16 08:33 Albumin/Globulin Ratio 1.0 % 10/15/16 08:33 Lipase 31 units/L (13-60) 10/15/16 08:33 Urine Color Yellow (Yellow) 10/15/16 Unknown Urine Turbidity Slightly-cloudy (Clear) 10/15/16 Unknown Urine pH 5.0 (5.0-7.0) 10/15/16 Unknown Ur Specific [place] 1.020 (1.003-1.030) 10/15/16 Unknown Urine Protein 100 mg/dl mg/dL (Negative) 10/15/16 Unknown Urine Glucose (UA) Neg mg/dL (Negative) 10/15/16 Unknown Urine Ketones Neg mg/dL (Negative) 10/15/16 Unknown Urine Blood Neg (Negative) 10/15/16 Unknown Urine Nitrite Neg (Negative) 10/15/16 Unknown Urine Bilirubin Neg (Negative) 10/15/16 Unknown Urine Urobilinogen < 2.0 mg/dL (<2.0) 10/15/16 Unknown Ur Leukocyte Esterase Mod (Negative) 10/15/16 Unknown Urine WBC (Auto) 85.0 /HPF (0.0-6.0) H 10/15/16 Unknown Urine RBC (Auto) 13.0 /HPF (0.0-6.0) 10/15/16 Unknown U Epithel Cells (Auto) 1.0 /HPF (0-13.0) 10/15/16 Unknown Urine Bacteria (Auto) 1+ /HPF (Negative) 10/15/16 Unknown Urine Mucus Few /HPF 10/15/16 Unknown
--- NOTE | 2016-10-19 18:22 | Progress Note ---
Subjective Date of service: 10/19/16 Principal diagnosis: renal abscess Interval history: No complaints. VS - Afebrile. Chest - good air entry cvs - s1s2 abd - bs+ extremities - no edema LABS Repeat ct still showed renal abscess unchanged in size from previous study. ASSESSMENT 1. Sepsis - resolving 2. Renal abscess 3. uti 4. dm2 RECOMMENDATION CT scan today showed no change in size of abscess. Please call urology OR IR to drain. Continue iv ab Objective - Constitutional Vitals: Vital Signs Temp Pulse Resp BP Pulse Ox 98.4 F 82 20 110/58 97 10/19/16 16:15 10/19/16 16:15 10/19/16 16:15 10/19/16 16:15 10/19/16 10:00 Temperature -Last 24 Hours Temperature 98.4 F Temperature 98.3 F Temperature 98.4 F - Labs CBC & Chem 7: 10/19/16 05:25 10/19/16 05:25 Labs: Abnormal lab results 10/18/16 10/19/16 10/19/16 Range/Units 21:03 05:25 17:12 WBC 4.4 L (4.5-11.0) K/mm3 RBC 3.53 L (3.65-5.03) M/mm3 RDW 13.0 L (13.2-15.2) % Lymph % (Auto) 45.8 H (13.4-35.0) % [place] % (Auto) 12.9 H (0.0-7.3) % Eos % (Auto) 4.8 H (0.0-4.3) % Seg Neutrophils % 36.0 L (40.0-70.0) % Seg Neutrophils # 1.6 L (1.8-7.7) K/mm3 POC Glucose 169 H 181 H (70-105)
[2016-10-19] MEDS: NACL 0.9% 1000 ML 1,000 ML IV SCH (18:25)
[2016-10-19] MEDS: DILAUDID PO PRN (18:29)
[2016-10-19] MEDS: BENADRYL PO SCH (22:23)
[2016-10-19] MEDS: LOVENOX SUB-Q SCH (22:23)
[2016-10-19] MEDS: LEVEMIR SUB-Q SCH (22:24)
[2016-10-20 05:42] LABS: Basophils % (Auto) 0.7 % (0.0-1.8); Eosinophils % (Auto) 4.5 % (0.0-4.3); Hematocrit 32.2 % (30.3-42.9); Hemoglobin 10.6 gm/dl (10.1-14.3); Mean Corpuscular HGB Conc 33 % (30-34); Mean Corpuscular Hemoglobin 30 pg (28-32); Mean Corpuscular Volume 92 fl (79-97); Red Blood Count 3.51 M/mm3 (3.65-5.03); Red Cell Distribution Width 12.6 % (13.2-15.2)
[2016-10-20 05:43] LABS: Platelet Count 102 K/mm3 (140-440)
[2016-10-20 06:02] LABS: BUN/Creatinine Ratio 8.33; Blood Urea Nitrogen 5 mg/dL (7-17); Calcium 8.6 mg/dL (8.4-10.2); Carbon Dioxide 26 mmol/L (22-30); Chloride 102.4 mmol/L (98-107); Glucose 79 mg/dL (65-100); Sodium 141 mmol/L (137-145)
[2016-10-20] MEDS: NACL 0.9% 1000 ML 1,000 ML IV SCH (06:02)
[2016-10-20 07:19] LABS: Anion Gap 17 mmol/L
[2016-10-20 07:20] LABS: Potassium 4.8 mmol/L (3.6-5.0)
[2016-10-20] MEDS: NOVOLOG SUB-Q SCH ×3 (08:11→16:14)
[2016-10-20] MEDS: LEVAQUIN 750MG/150ML 750 MG/150 ML BAG IV SCH (09:48)
[2016-10-20] MEDS: APRESOLINE PO SCH (09:49)
[2016-10-20] MEDS: HCTZ PO SCH (09:49)
[2016-10-20] MEDS: ZESTRIL PO SCH (09:50)
[2016-10-20] MEDS: GEODON PO SCH (09:50)
--- NOTE | 2016-10-20 17:16 | Progress Note ---
Assessment and Plan Assessment and plan: Right renal abscess. Continue Levaquin. ID physician, urology and interventional radiologist following. Repeat CT scan shows unchanged abscess. Diabetes mellitus type 2. Continue fingerstick glucose before every meal and at bedtime. Levemir Hypertension. Continue hydralazine and lisinopril Hyperlipidemia Bipolar disorder. Continue Geodon Full CODE STATUS DVT prophylaxis with Lovenox History Interval history: right flank pain, no fever Hospitalist Physical - Physical exam Narrative exam: Gen: No acute distress, obese HEENT :Normocephalic atraumatic Neck : Supple no JVD Lungs clear to auscultation bilaterally no crackles or wheeze Heart S1 and S2 regular, no murmurs no rubs or gallop Abdomen soft, tender right flank, nondistended, normal bowel sounds Extremities : no edema, clubbing or cyanosis Neuro: awake, alert, oriented x3 Psych: Mood is normal - Constitutional Vitals: Temp Pulse Resp BP Pulse Ox 98.9 F 62 16 145/107 97 10/20/16 16:00 10/20/16 16:00 10/20/16 16:00 10/20/16 16:00 10/20/16 00:00 General appearance: Present: no acute distress Results - Labs CBC & Chem 7: 10/20/16 05:25 10/20/16 05:25 Labs: Laboratory Last Values WBC 6.0 K/mm3 (4.5-11.0) 10/20/16 05:25 RBC 3.51 M/mm3 (3.65-5.03) L 10/20/16 05:25 Hgb 10.6 gm/dl (10.1-14.3) 10/20/16 05:25 Hct 32.2 % (30.3-42.9) 10/20/16 05:25 MCV 92 fl (79-97) 10/20/16 05:25 MCH 30 pg (28-32) 10/20/16 05:25 MCHC 33 % (30-34) 10/20/16 05:25 RDW 12.6 % (13.2-15.2) L 10/20/16 05:25 Plt Count 102 K/mm3 (140-440) L 10/20/16 05:25 Lymph % (Auto) 40.9 % (13.4-35.0) H 10/20/16 05:25 [place] % (Auto) 12.6 % (0.0-7.3) H 10/20/16 05:25 Eos % (Auto) 4.5 % (0.0-4.3) H 10/20/16 05:25 Baso % (Auto) 0.7 % (0.0-1.8) 10/20/16 05:25 Lymph # 2.4 K/mm3 (1.2-5.4) 10/20/16 05:25 [place] # 0.8 K/mm3 (0.0-0.8) 10/20/16 05:25 Eos # 0.3 K/mm3 (0.0-0.4) 10/20/16 05:25 Baso # 0.0 K/mm3 (0.0-0.1) 10/20/16 05:25 Seg Neutrophils % 41.3 % (40.0-70.0) 10/20/16 05:25 Seg Neutrophils # 2.5 K/mm3 (1.8-7.7) 10/20/16 05:25 Sodium 138 mmol/L (137-145) 10/19/16 05:25 Potassium 4.8 mmol/L (3.6-5.0) 10/20/16 05:25 Chloride 101.4 mmol/L (98-107) 10/19/16 05:25 Carbon Dioxide 26 mmol/L (22-30) 10/20/16 05:25 Anion Gap 17 mmol/L 10/20/16 05:25 BUN 5 mg/dL (7-17) L 10/20/16 05:25 Creatinine 0.6 mg/dL (0.7-1.2) L 10/20/16 05:25 Estimated GFR > 60 ml/min 10/20/16 05:25 BUN/Creatinine Ratio 8.33 % 10/20/16 05:25 Glucose 79 mg/dL (65-100) 10/20/16 05:25 POC Glucose 159 (70-105) H 10/20/16 16:09 Hemoglobin A1c 6.4 % (4-6) H 10/16/16 14:57 Calcium 8.6 mg/dL (8.4-10.2) 10/20/16 05:25 Total Bilirubin 0.4 mg/dL (0.1-1.2) 10/15/16 08:33 AST 21 units/L (5-40) 10/15/16 08:33 ALT 23 units/L (7-56) 10/15/16 08:33 Alkaline Phosphatase 54 units/L (35-129) 10/15/16 08:33 Total Protein 8.0 g/dL (6.3-8.2) 10/15/16 08:33 Albumin 3.9 g/dL (3.9-5) 10/15/16 08:33 Albumin/Globulin Ratio 1.0 % 10/15/16 08:33 Lipase 31 units/L (13-60) 10/15/16 08:33 Urine Color Yellow (Yellow) 10/15/16 Unknown Urine Turbidity Slightly-cloudy (Clear) 10/15/16 Unknown Urine pH 5.0 (5.0-7.0) 10/15/16 Unknown Ur Specific [place] 1.020 (1.003-1.030) 10/15/16 Unknown Urine Protein 100 mg/dl mg/dL (Negative) 10/15/16 Unknown Urine Glucose (UA) Neg mg/dL (Negative) 10/15/16 Unknown Urine Ketones Neg mg/dL (Negative) 10/15/16 Unknown Urine Blood Neg (Negative) 10/15/16 Unknown Urine Nitrite Neg (Negative) 10/15/16 Unknown Urine Bilirubin Neg (Negative) 10/15/16 Unknown Urine Urobilinogen < 2.0 mg/dL (<2.0) 10/15/16 Unknown Ur Leukocyte Esterase Mod (Negative) 10/15/16 Unknown Urine WBC (Auto) 85.0 /HPF (0.0-6.0) H 10/15/16 Unknown Urine RBC (Auto) 13.0 /HPF (0.0-6.0) 10/15/16 Unknown U Epithel Cells (Auto) 1.0 /HPF (0-13.0) 10/15/16 Unknown Urine Bacteria (Auto) 1+ /HPF (Negative) 10/15/16 Unknown Urine Mucus Few /HPF 10/15/16 Unknown
--- NOTE | 2016-10-20 19:08 | Progress Note ---
Subjective Date of service: 10/20/16 Principal diagnosis: renal abscess Interval history: No complaints. VS - Afebrile. Chest - good air entry cvs - s1s2 abd - bs+ extremities - no edema LABS Repeat ct still showed renal abscess unchanged in size from previous study. ASSESSMENT 1. Sepsis - resolving 2. Renal abscess 3. uti 4. dm2 RECOMMENDATION awaits urology OR IR to drain renal abscess Continue iv ab Objective - Constitutional Vitals: Vital Signs Temp Pulse Resp BP Pulse Ox 98.9 F 62 16 145/107 97 10/20/16 16:00 10/20/16 16:00 10/20/16 16:00 10/20/16 16:00 10/20/16 00:00 Temperature -Last 24 Hours Temperature 98.9 F Temperature 98 F Temperature 98.2 F - Labs CBC & Chem 7: 10/20/16 05:25 10/20/16 05:25 Labs: Abnormal lab results 10/20/16 10/20/16 10/20/16 Range/Units 05:25 05:25 16:09 RBC 3.51 L (3.65-5.03) M/mm3 RDW 12.6 L (13.2-15.2) % Plt Count 102 L (140-440) K/mm3 Lymph % (Auto) 40.9 H (13.4-35.0) % [place] % (Auto) 12.6 H (0.0-7.3) % Eos % (Auto) 4.5 H (0.0-4.3) % BUN 5 L (7-17) mg/dL Creatinine 0.6 L (0.7-1.2) mg/dL POC Glucose 159 H (70-105)
[2016-10-20] MEDS: BENADRYL PO SCH (22:16)
[2016-10-20] MEDS: LOVENOX SUB-Q SCH (22:17)
[2016-10-21] MEDS: NACL 0.9% 1000 ML 1,000 ML IV SCH (08:28)
[2016-10-21] MEDS: NOVOLOG SUB-Q SCH ×2 (08:29→12:58)
[2016-10-21] MEDS ORDERED: LEVAQUIN PO SCH (10:00)
[2016-10-21] MEDS: GEODON PO SCH (12:55)
[2016-10-21] MEDS: ZESTRIL PO SCH (12:55)
[2016-10-21] MEDS: APRESOLINE PO SCH ×2 (12:55→12:57)
[2016-10-21] MEDS: HCTZ PO SCH (12:55)
--- NOTE | 2016-10-21 14:33 | Progress Note ---
Hospitalist Physical - Constitutional Vitals: Temp Pulse Resp BP Pulse Ox 98.2 F 70 18 131/81 99 10/21/16 08:30 10/21/16 08:30 10/21/16 08:30 10/21/16 12:55 10/21/16 08:30 General appearance: Present: no acute distress Results - Labs CBC & Chem 7: 10/20/16 05:25 10/20/16 05:25 Labs: Laboratory Last Values WBC 6.0 K/mm3 (4.5-11.0) 10/20/16 05:25 RBC 3.51 M/mm3 (3.65-5.03) L 10/20/16 05:25 Hgb 10.6 gm/dl (10.1-14.3) 10/20/16 05:25 Hct 32.2 % (30.3-42.9) 10/20/16 05:25 MCV 92 fl (79-97) 10/20/16 05:25 MCH 30 pg (28-32) 10/20/16 05:25 MCHC 33 % (30-34) 10/20/16 05:25 RDW 12.6 % (13.2-15.2) L 10/20/16 05:25 Plt Count 102 K/mm3 (140-440) L 10/20/16 05:25 Lymph % (Auto) 40.9 % (13.4-35.0) H 10/20/16 05:25 [place] % (Auto) 12.6 % (0.0-7.3) H 10/20/16 05:25 Eos % (Auto) 4.5 % (0.0-4.3) H 10/20/16 05:25 Baso % (Auto) 0.7 % (0.0-1.8) 10/20/16 05:25 Lymph # 2.4 K/mm3 (1.2-5.4) 10/20/16 05:25 [place] # 0.8 K/mm3 (0.0-0.8) 10/20/16 05:25 Eos # 0.3 K/mm3 (0.0-0.4) 10/20/16 05:25 Baso # 0.0 K/mm3 (0.0-0.1) 10/20/16 05:25 Seg Neutrophils % 41.3 % (40.0-70.0) 10/20/16 05:25 Seg Neutrophils # 2.5 K/mm3 (1.8-7.7) 10/20/16 05:25 Sodium 138 mmol/L (137-145) 10/19/16 05:25 Potassium 4.8 mmol/L (3.6-5.0) 10/20/16 05:25 Chloride 101.4 mmol/L (98-107) 10/19/16 05:25 Carbon Dioxide 26 mmol/L (22-30) 10/20/16 05:25 Anion Gap 17 mmol/L 10/20/16 05:25 BUN 5 mg/dL (7-17) L 10/20/16 05:25 Creatinine 0.6 mg/dL (0.7-1.2) L 10/20/16 05:25 Estimated GFR > 60 ml/min 10/20/16 05:25 BUN/Creatinine Ratio 8.33 % 10/20/16 05:25 Glucose 79 mg/dL (65-100) 10/20/16 05:25 POC Glucose 74 (70-105) 10/21/16 11:37 Hemoglobin A1c 6.4 % (4-6) H 10/16/16 14:57 Calcium 8.6 mg/dL (8.4-10.2) 10/20/16 05:25 Total Bilirubin 0.4 mg/dL (0.1-1.2) 10/15/16 08:33 AST 21 units/L (5-40) 10/15/16 08:33 ALT 23 units/L (7-56) 10/15/16 08:33 Alkaline Phosphatase 54 units/L (35-129) 10/15/16 08:33 Total Protein 8.0 g/dL (6.3-8.2) 10/15/16 08:33 Albumin 3.9 g/dL (3.9-5) 10/15/16 08:33 Albumin/Globulin Ratio 1.0 % 10/15/16 08:33 Lipase 31 units/L (13-60) 10/15/16 08:33 Urine Color Yellow (Yellow) 10/15/16 Unknown Urine Turbidity Slightly-cloudy (Clear) 10/15/16 Unknown Urine pH 5.0 (5.0-7.0) 10/15/16 Unknown Ur Specific [place] 1.020 (1.003-1.030) 10/15/16 Unknown Urine Protein 100 mg/dl mg/dL (Negative) 10/15/16 Unknown Urine Glucose (UA) Neg mg/dL (Negative) 10/15/16 Unknown Urine Ketones Neg mg/dL (Negative) 10/15/16 Unknown Urine Blood Neg (Negative) 10/15/16 Unknown Urine Nitrite Neg (Negative) 10/15/16 Unknown Urine Bilirubin Neg (Negative) 10/15/16 Unknown Urine Urobilinogen < 2.0 mg/dL (<2.0) 10/15/16 Unknown Ur Leukocyte Esterase Mod (Negative) 10/15/16 Unknown Urine WBC (Auto) 85.0 /HPF (0.0-6.0) H 10/15/16 Unknown Urine RBC (Auto) 13.0 /HPF (0.0-6.0) 10/15/16 Unknown U Epithel Cells (Auto) 1.0 /HPF (0-13.0) 10/15/16 Unknown Urine Bacteria (Auto) 1+ /HPF (Negative) 10/15/16 Unknown Urine Mucus Few /HPF 10/15/16 Unknown
[2016-10-21 16:19] VITALS: BP 105/69
--- NOTE | 2016-10-21 16:35 | Progress Note ---
Assessment and Plan 56-year-old female who presented with right flank pain and pyelonephritis with CT demonstrating cyst versus abscess in the upper pole of the right kidney. Patient has clinically improved with antibiotics alone. Afebrile. No abdominal pain. No flank pain. No costovertebral tenderness. Imaging differential includes cyst versus abscess as these cannot be easily differentiated by imaging alone. The patient's improving clinical status without recurrent issues favor cyst over abscess. Repeat ultrasound or imaging , as Dr. Ferrell recommended, is reasonable in 2 weeks. If the lesion increases in size, or there is significant increase in fatty stranding/ inflammatory changes then this may represent an abscess. If the patient has recurrent right flank pain, or fevers, then can reconsider aspiration. Do not recommend aspiration/drainage at this time. Subjective Date of service: 10/21/16 Principal diagnosis: renal abscess Interval history: Reviewed patient's CT scans. Afebrile. No abdominal pain. No costovertebral tenderness. Feels good. Wants to go home. Objective - Constitutional Vitals: Vital Signs - 12hr 10/21/16 10/21/16 10/21/16 08:30 12:55 12:57 Temperature 98.2 F Pulse Rate [ 70 Left] Respiratory 18 Rate Blood Pressure 131/81 131/81 Blood Pressure 130/90 [Right Arm] O2 Sat by Pulse 99 Oximetry 10/21/16 16:18 Temperature 98.7 F Pulse Rate [ 92 H Left] Respiratory 18 Rate Blood Pressure Blood Pressure 105/69 [Right Arm] O2 Sat by Pulse Oximetry General appearance: Present: no acute distress - EENT Eyes: EOM intact ENT: hearing intact - Respiratory Respiratory effort: normal Extremities: normal temperature, normal color - Gastrointestinal General gastrointestinal: Present: non-tender, other (no costovertebral tenderness) - Psychiatric Psychiatric: appropriate mood/affect, cooperative - Labs CBC & Chem 7: 10/20/16 05:25 10/20/16 05:25 Labs: Abnormal lab results 10/20/16 Range/Units 22:32 POC Glucose 243 H (70-105)
--- NOTE | 2016-10-21 17:37 | Discharge Summary ---
Providers - Providers Date of Admission: 10/15/16 15:58 Date of discharge: 10/21/16 Attending physician: DAKOTA AYALA 10/16/16 07:59 Consult to Physician [CONS] Routine Consulting Provider: AWA SEGURA Reason For Exam: Right renal abscess Place consult to:: ID Notified:: yes Phone number called:: [phone] Was contact made?: Yes If yes, spoke with:: Candi Time called:: 09:44 10/16/16 08:05 Consult to Physician [CONS] Routine Consulting Provider: PIYUSH MELARA Reason For Exam: Renal abscess-Rt Place consult to:: urol Notified:: office Phone number called:: [phone] Was contact made?: Yes If yes, spoke with:: rafa Time called:: 09:55 Hospitalization Condition: Fair Disposition: DISCHARGED TO HOME OR SELFCARE - Discharge Diagnoses (1) Renal abscess, right Status: Acute Core Measure Documentation - Palliative Care Palliative Care/ Comfort Measures: Not Applicable - Core Measures Any of the following diagnoses?: none Exam - Constitutional Vitals: Temp Pulse Resp BP Pulse Ox 98.7 F 92 H 18 105/69 99 10/21/16 16:18 10/21/16 16:18 10/21/16 16:18 10/21/16 16:18 10/21/16 08:30 Plan Activity: no restrictions Diet: low fat, low cholesterol, low salt Additional Instructions: 1.Follow up with Primary Care Physician in 1 week. 2.Follow up with Dr. Danielson in 2 weeks. 3.Follow up with JAKE Shipley in 1- 2 weeks Follow up with: VINITA LAI [Other] - 3-5 Days Prescriptions: Levofloxacin [Levaquin TAB] 750 mg PO DAILY #14 tablet
--- NOTE | 2016-10-21 18:29 | Progress Note ---
Subjective Date of service: 10/21/16 Principal diagnosis: renal abscess Interval history: No complaints. VS - Afebrile. Chest - good air entry cvs - s1s2 abd - bs+ extremities - no edema LABS Repeat ct still showed renal abscess unchanged in size from previous study. ASSESSMENT 1. Sepsis - resolving 2. Renal abscess 3. uti 4. dm2 RECOMMENDATION D/C planning on iv levaquin 750mg daily for 2weeks. In 2weeks, CT scan should be repeated to reevaluate for the need to drain. I am of the opinion that patient should be drained at this time. However, patient responded to iv antibiotics although the size of the abscess remain the same In view of different opinions as to whether to drain now, The minimum we can do now is to keep patient on iv antibiotics pending when repeat ct is done. Objective - Constitutional Vitals: Vital Signs Temp Pulse Resp BP Pulse Ox 98.7 F 92 H 18 105/69 99 10/21/16 16:18 10/21/16 16:18 10/21/16 16:18 10/21/16 16:18 10/21/16 08:30 Temperature -Last 24 Hours Temperature 98.7 F Temperature 98.2 F Temperature 98.4 F - Labs CBC & Chem 7: 10/20/16 05:25 10/20/16 05:25 Labs: Abnormal lab results 10/20/16 Range/Units 22:32 POC Glucose 243 H (70-105)
== END 2016-10-21 19:00 | disposition home or self-care (01) | DRG 871 ==
LOC: ED 08:14 → 3A 15:58
PROVIDERS: ADMIT Internal Medicine; ATTEND Internal Medicine
DX: A41.9 Sepsis, unspecified organism (principal); N15.1 Renal and perinephric abscess; N12 Tubulo-interstitial nephritis, not specified as acute or chronic; E11.65 Type 2 diabetes mellitus with hyperglycemia; I10 Essential (primary) hypertension; E78.00 Pure hypercholesterolemia, unspecified; M19.90 Unspecified osteoarthritis, unspecified site; G43.909 Migraine, unspecified, not intractable, without status migrainosus; F31.9 Bipolar disorder, unspecified; F20.9 Schizophrenia, unspecified; E78.5 Hyperlipidemia, unspecified; B19.20 Unspecified viral hepatitis C without hepatic coma; Z98.51 Tubal ligation status; Z87.891 Personal history of nicotine dependence; Z82.49 Family history of ischemic heart disease and other diseases of the circulatory system; Z88.6 Allergy status to analgesic agent
CPT/HCPCS: 36415; 74176; 74177; 80048; 80053; 81001; 82962; 83036; 83690; 85025; 87040; 87076; 87086; 87186; 96374; 96375; A9270-GY; J0696; J1170; J1650; J1815; J1818; J1885; J1956; J7030; Q0162; Q9967

== ENCOUNTER 2017-08-03 08:33 | Emergency (ER) | payer MEDICAID ==
[2017-08-03 08:47] VITALS: BP 140/89
[2017-08-03] MEDS ORDERED: ULTRAM PO ONE (09:14)
--- NOTE | 2017-08-03 09:14 | Emergency Department Report ---
ED General Adult HPI - General Chief complaint: Fall Stated complaint: RIGHT BREAST PAIN Time Seen by Provider: 08/03/17 08:54 Source: patient, family Mode of arrival: Ambulatory Limitations: Physical Limitation - History of Present Illness Initial comments: 57-year-old female presents to the ED complaining of right breast pain. Patient states yesterday she fell against her breast and having tenderness. States very minimal bruising and no swelling or laceration. States that it is aching and Tylenol was not helping with pain. Denies other injury. Requesting medication for pain. -: Sudden, days(s) (1) - Related Data Home Medications Medication Instructions Recorded Confirmed Last Taken Atorvastatin (Nf) [Lipitor] 40 mg PO QHS 08/11/13 10/15/16 10/10/16 Hydralazine HCl [Apresoline TAB] 50 mg PO Q12H 08/11/13 10/15/16 10/10/16 Lisinopril/Hydrochlorothiazide 10 mg PO DAILY 08/11/13 10/15/16 10/10/16 [Zestoretic 20-12.5 mg] Metformin HCl [Fortamet ER] 500 mg PO BID 08/11/13 10/15/16 10/10/16 Simvastatin [Zocor TAB] 20 mg PO HS 08/11/13 10/15/16 10/10/16 Ziprasidone HCl [Geodon] 80 mg PO DAILY 08/11/13 10/15/16 10/10/16 carBAMazepine [TEGretol] 200 mg PO HS 08/11/13 10/15/16 10/10/16 clonazePAM [KlonoPIN] 1 mg PO DAILY 08/11/13 10/15/16 Unknown diphenhydrAMINE [Benadryl CAP] 50 mg PO HS 08/11/13 10/15/16 10/10/16 Previous Rx's Medication Instructions Recorded Last Taken Type Butalb/Acetaminophen/Caffeine 1 cap PO Q8HR PRN #30 cap 07/11/16 Unknown Rx [Fioricet 50-300-40 mg CAP] Levofloxacin [Levaquin TAB] 750 mg PO DAILY #14 tablet 10/21/16 Unknown Rx traMADol [Ultram 50 MG tab] 50 mg PO Q6HR PRN #14 tablet 08/03/17 Unknown Rx Allergies Allergy/AdvReac Type Severity Reaction Status Date / Time codeine Allergy Intermediate Swelling Verified 10/15/16 18:16 ED Review of Systems ROS: Stated complaint: RIGHT BREAST PAIN Other details as noted in HPI Constitutional: denies: chills, fever Eyes: denies: eye pain, eye discharge, vision change ENT: denies: ear pain, throat pain Respiratory: denies: cough, shortness of breath, wheezing Cardiovascular: denies: chest pain, palpitations Endocrine: no symptoms reported Gastrointestinal: denies: abdominal pain, nausea, diarrhea Genitourinary: denies: urgency, dysuria, discharge Musculoskeletal: denies: back pain, joint swelling, arthralgia Skin: other (right breast pain). denies: rash, lesions Neurological: denies: headache, weakness, paresthesias Psychiatric: denies: anxiety, depression Hematological/Lymphatic: denies: easy bleeding, easy bruising ED Past Medical Hx - Past Medical History Previous Medical History?: Yes Hx Hypertension: Yes Hx Congestive Heart Failure: No Hx Diabetes: Yes Hx Liver Disease: Yes (Hepatitis C in remission) Hx Sickle Cell Disease: No Hx Arthritis: Yes Hx Headaches / Migraines: Yes (MIGRAINES) Hx Psychiatric Treatment: Yes (Bipolar, Schizophrenia) Hx Asthma: No Hx COPD: No Additional medical history: high cholesterol, bipolar, schizophrenia, manic , hep c - Surgical History Past Surgical History?: Yes Additional Surgical History: Tubaligation - Social History Smoking Status: Never Smoker Substance Use Type: Prescribed - Medications Home Medications: Home Medications Medication Instructions Recorded Confirmed Last Taken Type Atorvastatin (Nf) [Lipitor] 40 mg PO QHS 08/11/13 10/15/16 10/10/16 History Hydralazine HCl [Apresoline TAB] 50 mg PO Q12H 08/11/13 10/15/16 10/10/16 History Lisinopril/Hydrochlorothiazide 10 mg PO DAILY 08/11/13 10/15/16 10/10/16 History [Zestoretic 20-12.5 mg] Metformin HCl [Fortamet ER] 500 mg PO BID 08/11/13 10/15/16 10/10/16 History Simvastatin [Zocor TAB] 20 mg PO HS 08/11/13 10/15/16 10/10/16 History Ziprasidone HCl [Geodon] 80 mg PO DAILY 08/11/13 10/15/1617 History carBAMazepine [TEGretol] 200 mg PO HS 08/11/13 10/15/16 10/10/16 History clonazePAM [KlonoPIN] 1 mg PO DAILY 08/11/13 10/15/16 Unknown History diphenhydrAMINE [Benadryl CAP] 50 mg PO HS 08/11/13 10/15/16 10/10/16 History Butalb/Acetaminophen/Caffeine 1 cap PO Q8HR PRN #30 cap 07/11/16 10/15/16 Unknown Rx [Fioricet 50-300-40 mg CAP] Levofloxacin [Levaquin TAB] 750 mg PO DAILY #14 tablet 10/21/16 Unknown Rx traMADol [Ultram 50 MG tab] 50 mg PO Q6HR PRN #14 tablet 08/03/17 Unknown Rx ED Physical Exam - General Limitations: Physical Limitation General appearance: alert, in no apparent distress - Head Head exam: Present: atraumatic, normocephalic - Eye Eye exam: Present: normal appearance - ENT ENT exam: Present: mucous membranes moist - Neck Neck exam: Present: normal inspection - Respiratory Respiratory exam: Present: normal lung sounds bilaterally. Absent: respiratory distress - Cardiovascular Cardiovascular Exam: Present: regular rate, normal rhythm. Absent: systolic murmur, diastolic murmur, rubs, gallop - GI/Abdominal GI/Abdominal exam: Present: soft, normal bowel sounds - Extremities Exam Extremities exam: Present: normal inspection - Back Exam Back exam: Present: normal inspection - Neurological Exam Neurological exam: Present: alert, oriented X3 - Psychiatric Psychiatric exam: Present: normal affect, normal mood - Skin Skin exam: Present: warm, dry, intact, normal color. Absent: rash ED Course Vital Signs 08/03/17 08:41 Temperature 98.9 F Pulse Rate 94 H Respiratory 20 Rate Blood Pressure 140/89 O2 Sat by Pulse 96 Oximetry ED Medical Decision Making - Medical Decision Making Patient is refusing right breast exam. States it is just minimal bruising and only needs treatment for pain. Critical care attestation.: If time is entered above; I have spent that time in minutes in the direct care of this critically ill patient, excluding procedure time. ED Disposition Clinical Impression: Contusion of right breast, initial encounter, Fall Disposition: DC- TO HOME OR SELFCARE Is pt being admited?: No Does the pt Need Aspirin: No Condition: Good Instructions: Fall Prevention (ED) Prescriptions: traMADol [Ultram 50 MG tab] 50 mg PO Q6HR PRN #14 tablet PRN Reason: Pain Referrals: DAKOTA LEON MD [Primary Care Provider] - 3-5 Days Time of Disposition: 09:13
== END 2017-08-03 09:24 | disposition home or self-care (01) ==
LOC: ED 08:33
DX: S20.01XA Contusion of right breast, initial encounter (principal); I10 Essential (primary) hypertension; E11.9 Type 2 diabetes mellitus without complications; M19.90 Unspecified osteoarthritis, unspecified site; G43.909 Migraine, unspecified, not intractable, without status migrainosus; F31.9 Bipolar disorder, unspecified; F20.9 Schizophrenia, unspecified; E78.00 Pure hypercholesterolemia, unspecified; Z86.19 Personal history of other infectious and parasitic diseases; Z98.51 Tubal ligation status; Z88.5 Allergy status to narcotic agent; W18.39XA Other fall on same level, initial encounter; Y93.89 Activity, other specified; Y92.89 Other specified places as the place of occurrence of the external cause; Y99.8 Other external cause status
CPT/HCPCS: 99282

== ENCOUNTER 2017-08-16 09:59 | Emergency (ER) | payer MEDICAID ==
[2017-08-16 10:36] VITALS: BP 152/96
--- NOTE | 2017-08-16 11:30 | Emergency Department Report ---
ED General Adult HPI - General Chief complaint: Pain General Stated complaint: BREAST PAIN Time Seen by Provider: 08/16/17 11:23 Source: patient Mode of arrival: Ambulatory Limitations: No Limitations - History of Present Illness Initial comments: This is a 57-year-old female nontoxic, well nourished in appearance, no acute signs of distress presents to the ED with c/o of bilateral breast irritation and itching. Patient stated these symptoms occured last week but resolved after pain management. Patient stated she has been itching them and now are discolored skin. Patient denies any breast tenderness, breast swelling, nipple discharge, chest pain, shortness of breathe, fever, chills, headache, nausea, or vomiting. Patient states allergies to codeine. Past medical history includes migraines, hep C remission, bipolar. Patient stated her last mammogram was 2 months ago and normal. MD Complaint: bilateral breast itching -: week(s) (1) Radiation: non-radiation Severity scale (0 -10): 0 Quality: other (itching) Consistency: constant Improves with: none Worsens with: none Associated Symptoms: denies other symptoms. denies: confusion, chest pain, cough, diaphoresis, fever/chills, headaches, loss of appetite, malaise, nausea/ vomiting, rash, seizure, shortness of breath, syncope, weakness Treatments Prior to Arrival: none - Related Data Home Medications Medication Instructions Recorded Confirmed Last Taken Atorvastatin (Nf) [Lipitor] 40 mg PO QHS 08/11/13 10/15/16 10/10/16 Hydralazine HCl [Apresoline TAB] 50 mg PO Q12H 08/11/13 10/15/16 10/10/16 Lisinopril/Hydrochlorothiazide 10 mg PO DAILY 08/11/13 10/15/16 10/10/16 [Zestoretic 20-12.5 mg] Metformin HCl [Fortamet ER] 500 mg PO BID 08/11/13 10/15/16 10/10/16 Simvastatin [Zocor TAB] 20 mg PO HS 08/11/13 10/15/16 10/10/16 Ziprasidone HCl [Geodon] 80 mg PO DAILY 08/11/13 10/15/16 10/10/16 carBAMazepine [TEGretol] 200 mg PO HS 08/11/13 10/15/1610/10/17 clonazePAM [KlonoPIN] 1 mg PO DAILY 08/11/13 10/15/16 Unknown diphenhydrAMINE [Benadryl CAP] 50 mg PO HS 08/11/13 10/15/16 10/10/16 Previous Rx's Medication Instructions Recorded Last Taken Type Butalb/Acetaminophen/Caffeine 1 cap PO Q8HR PRN #30 cap 07/11/16 Unknown Rx [Fioricet 50-300-40 mg CAP] Levofloxacin [Levaquin TAB] 750 mg PO DAILY #14 tablet 10/21/16 Unknown Rx traMADol [Ultram 50 MG tab] 50 mg PO Q6HR PRN #14 tablet 08/03/17 Unknown Rx diphenhydrAMINE [Benadryl CAP] 25 mg PO Q6HR PRN #30 capsule 08/16/17 Unknown Rx predniSONE [Deltasone] 40 mg PO QDAY #5 tab 08/16/17 Unknown Rx Allergies Allergy/AdvReac Type Severity Reaction Status Date / Time codeine Allergy Intermediate Swelling Verified 08/16/17 10:32 ED Review of Systems ROS: Stated complaint: BREAST PAIN Other details as noted in HPI Constitutional: denies: chills, fever Eyes: denies: eye pain, eye discharge, vision change ENT: denies: ear pain, throat pain Respiratory: denies: cough, shortness of breath, wheezing Cardiovascular: denies: chest pain, palpitations Endocrine: no symptoms reported Gastrointestinal: denies: abdominal pain, nausea, diarrhea Genitourinary: denies: urgency, dysuria, discharge Musculoskeletal: denies: back pain, joint swelling, arthralgia Skin: denies: rash, lesions Neurological: denies: headache, weakness, paresthesias Psychiatric: denies: anxiety, depression Hematological/Lymphatic: denies: easy bleeding, easy bruising ED Past Medical Hx - Past Medical History Hx Hypertension: Yes Hx Congestive Heart Failure: No Hx Diabetes: Yes Hx Liver Disease: Yes (Hepatitis C in remission) Hx Sickle Cell Disease: No Hx Arthritis: Yes Hx Headaches / Migraines: Yes (MIGRAINES) Hx Psychiatric Treatment: Yes (Bipolar, Schizophrenia) Hx Asthma: No Hx COPD: No Additional medical history: high cholesterol, bipolar, schizophrenia, manic , hep c - Surgical History Additional Surgical History: Tubaligation - Social History Smoking Status: Never Smoker Substance Use Type: None - Medications Home Medications: Home Medications Medication Instructions Recorded Confirmed Last Taken Type Atorvastatin (Nf) [Lipitor] 40 mg PO QHS 08/11/13 10/15/16 10/10/16 History Hydralazine HCl [Apresoline TAB] 50 mg PO Q12H 08/11/13 10/15/16 10/10/16 History Lisinopril/Hydrochlorothiazide 10 mg PO DAILY 08/11/13 10/15/16 10/10/16 History [Zestoretic 20-12.5 mg] Metformin HCl [Fortamet ER] 500 mg PO BID 08/11/13 10/15/16 10/10/16 History Simvastatin [Zocor TAB] 20 mg PO HS 08/11/13 10/15/16 10/10/16 History Ziprasidone HCl [Geodon] 80 mg PO DAILY 08/11/13 10/15/16 10/10/16 History carBAMazepine [TEGretol] 200 mg PO HS 08/11/13 10/15/16 10/10/16 History clonazePAM [KlonoPIN] 1 mg PO DAILY 08/11/13 10/15/16 Unknown History diphenhydrAMINE [Benadryl CAP] 50 mg PO HS 08/11/13 10/15/16 10/10/16 History Butalb/Acetaminophen/Caffeine 1 cap PO Q8HR PRN #30 cap 07/11/16 10/15/16 Unknown Rx [Fioricet 50-300-40 mg CAP] Levofloxacin [Levaquin TAB] 750 mg PO DAILY #14 tablet 10/21/16 Unknown Rx traMADol [Ultram 50 MG tab] 50 mg PO Q6HR PRN #14 tablet 08/03/17 Unknown Rx diphenhydrAMINE [Benadryl CAP] 25 mg PO Q6HR PRN #30 capsule 08/16/17 Unknown Rx predniSONE [Deltasone] 40 mg PO QDAY #5 tab 08/16/17 Unknown Rx ED Physical Exam - General Limitations: No Limitations General appearance: alert, in no apparent distress - Head Head exam: Present: atraumatic, normocephalic - Eye Eye exam: Present: normal appearance, PERRL, EOMI Pupils: Present: normal accommodation - ENT ENT exam: Present: normal exam, normal orophraynx, mucous membranes moist, TM's normal bilaterally, normal external ear exam - Neck Neck exam: Present: normal inspection, full ROM. Absent: tenderness, meningismus, lymphadenopathy, thyromegaly - Respiratory Respiratory exam: Present: normal lung sounds bilaterally. Absent: respiratory distress, wheezes, rales, rhonchi, stridor, chest wall tenderness, accessory muscle use, decreased breath sounds, prolonged expiratory - Cardiovascular Cardiovascular Exam: Present: regular rate, normal rhythm, normal heart sounds. Absent: bradycardia, tachycardia, irregular rhythm, systolic murmur, diastolic murmur, rubs, gallop - GI/Abdominal GI/Abdominal exam: Present: soft, normal bowel sounds. Absent: distended, tenderness, guarding, rebound, rigid, diminished bowel sounds - Rectal Rectal exam: Present: deferred - Extremities Exam Extremities exam: Present: normal inspection, full ROM, normal capillary refill. Absent: tenderness, pedal edema, joint swelling, calf tenderness - Back Exam Back exam: Present: normal inspection, full ROM. Absent: tenderness, CVA tenderness (R), CVA tenderness (L), muscle spasm, paraspinal tenderness, vertebral tenderness, rash noted - Neurological Exam Neurological exam: Present: alert, oriented X3, CN II-XII intact, normal gait, reflexes normal - Psychiatric Psychiatric exam: Present: normal affect, normal mood - Skin Skin exam: Present: warm, dry, intact, normal color. Absent: rash - Other Other exam information: Bilateral breast slight erythema, itching, and dry skin to the area. No abscess or swelling noted. Nontender. No nodular swelling upon exam with [employer] worker present. ED Course Vital Signs 08/16/17 10:32 Temperature 98.5 F Pulse Rate 72 Respiratory 18 Rate Blood Pressure 152/96 O2 Sat by Pulse 97 Oximetry - Reevaluation(s) Reevaluation #1: 08/16/17 11:35 Patient is speaking in full sentences with no signs of distress noted. ED Medical Decision Making - Medical Decision Making This is a 57-year-old female that presents with eczema. Patient is stable and was examined by me. [employer] Operator present during this exam. There is no swelling, abscess or nodular upon examination. Last mammogram as per patient stated was 2 months ago and normal. Patient treated with Solu-Medrol in the ED as well as discharge and Benadryl. Patient was instructed Follow-up with a primary care doctor in 3-5 days or if symptoms worsen and continue return to emergency room as soon as possible. At time time of discharge, the patient does not seem toxic or ill in appearance. No acute signs of distress noted. Patient agrees to discharge treatment plan of care. No further questions noted by the patient. Critical care attestation.: If time is entered above; I have spent that time in minutes in the direct care of this critically ill patient, excluding procedure time. ED Disposition Clinical Impression: Eczema Qualifiers: Eczema type: unspecified Qualified Code(s): L30.9 - Dermatitis, unspecified Disposition: DC-01 TO HOME OR SELFCARE Is pt being admited?: No Does the pt Need Aspirin: No Condition: Stable Instructions: Contact Dermatitis (ED), Eczema (ED), Prednisone (By mouth), Diphenhydramine (By mouth) Additional Instructions: Follow-up with a primary care doctor in 3-5 days or if symptoms worsen and continue return to emergency room as soon as possible. Do not operate any machinery while taking Benadryl due to drowsiness Prescriptions: diphenhydrAMINE [Benadryl CAP] 25 mg PO Q6HR PRN #30 capsule PRN Reason: Itching predniSONE [Deltasone] 40 mg PO QDAY #5 tab Referrals: PRIMARY CAREMD [Primary Care Provider] - 3-5 Days LARS MITCHELL MD [Staff Physician] - 3-5 Days [facility] [Outside] - 3-5 Days [facility] [Outside] - 3-5 Days Forms: Work/School Release Form(ED)
[2017-08-16] MEDS ORDERED: PEPCID PO ONE (11:40)
== END 2017-08-16 11:56 | disposition home or self-care (01) ==
LOC: ED 09:59
DX: L30.9 Dermatitis, unspecified (principal); I10 Essential (primary) hypertension; E11.9 Type 2 diabetes mellitus without complications; M19.90 Unspecified osteoarthritis, unspecified site; G43.909 Migraine, unspecified, not intractable, without status migrainosus; F20.9 Schizophrenia, unspecified; F41.9 Anxiety disorder, unspecified; E78.00 Pure hypercholesterolemia, unspecified; Z88.8 Allergy status to other drugs, medicaments and biological substances
CPT/HCPCS: 96372; 99282; J2930

== ENCOUNTER 2018-03-26 07:29 | Emergency (ER) | payer MEDICAID ==
[2018-03-26] MEDS ORDERED: NACL 0.9% 1000 ML 1,000 ML IV ONE ×2 (07:38→08:49)
[2018-03-26 08:05] LABS: Basophils % (Auto) 0.5 % (0.0-1.8); Eosinophils # (Auto) 0.1 K/mm3 (0.0-0.4); Eosinophils % (Auto) 2.6 % (0.0-4.3); Hematocrit 36.8 % (30.3-42.9); Hemoglobin 12.2 gm/dl (10.1-14.3); Lymphocytes # (Auto) 2.2 K/mm3 (1.2-5.4); Lymphocytes % (Auto) 44.1 % (13.4-35.0); Mean Corpuscular HGB Conc 33 % (30-34); Mean Corpuscular Hemoglobin 32 pg (28-32); Mean Corpuscular Volume 95 fl (79-97); Monocytes # (Auto) 0.3 K/mm3 (0.0-0.8); Monocytes % (Auto) 6.6 % (0.0-7.3); Platelet Count 263 K/mm3 (140-440); Red Blood Count 3.85 M/mm3 (3.65-5.03); Red Cell Distribution Width 13.5 % (13.2-15.2)
[2018-03-26 08:18] LABS: Bacteria,Urine 1+ /HPF (Negative); Bilirubin,Urine NEG (Negative); Blood,Urine NEG (Negative); Color,Urine Yellow (Yellow); Mucus,Urine FEW /HPF; Protein,Urine <15 mg/dL mg/dL (Negative)
[2018-03-26 08:19] LABS: Alanine Aminotransferase 6 units/L (7-56); Albumin 4.2 g/dL (3.9-5); BUN/Creatinine Ratio 20; Blood Urea Nitrogen 16 mg/dL (7-17); Calcium 8.9 mg/dL (8.4-10.2); Hemolysis Index 3
--- NOTE | 2018-03-26 08:22 | Emergency Department Report ---
ED Abdominal Pain HPI - General Chief Complaint: Abdominal Pain Stated Complaint: ADBOMINAL PAIN Time Seen by Provider: 03/26/18 08:22 Source: patient Mode of arrival: Ambulatory Limitations: No Limitations - History of Present Illness MD Complaint: abdominal pain, flank pain -: Sudden, Last night Location: L flank Radiation: none Migration to: no migration Severity: moderate Severity scale (0 -10): 6 Quality: cramping, aching Consistency: constant Worsens With: nothing Associated Symptoms: nausea. denies: vomiting, diarrhea, fever, chills - Related Data Home Medications Medication Instructions Recorded Confirmed Last Taken Atorvastatin (Nf) [Lipitor] 40 mg PO QHS 08/11/13 10/15/16 10/10/16 Hydralazine HCl [Apresoline TAB] 50 mg PO Q12H 08/11/13 10/15/16 10/10/16 Lisinopril/Hydrochlorothiazide 10 mg PO DAILY 08/11/13 10/15/16 10/10/16 [Zestoretic 20-12.5 mg] Metformin HCl [Fortamet ER] 500 mg PO BID 08/11/13 10/15/16 10/10/16 Simvastatin [Zocor TAB] 20 mg PO HS 08/11/13 10/15/16 10/10/16 Ziprasidone HCl [Geodon] 80 mg PO DAILY 08/11/13 10/15/16 10/10/16 carBAMazepine [TEGretol] 200 mg PO HS 08/11/13 10/15/16 10/10/16 clonazePAM [KlonoPIN] 1 mg PO DAILY 08/11/13 10/15/16 Unknown diphenhydrAMINE [Benadryl CAP] 50 mg PO HS 08/11/13 10/15/16 10/10/16 Previous Rx's Medication Instructions Recorded Last Taken Type Butalb/Acetaminophen/Caffeine 1 cap PO Q8HR PRN #30 cap 07/11/16 Unknown Rx [Fioricet 50-300-40 mg CAP] Levofloxacin [Levaquin TAB] 750 mg PO DAILY #14 tablet 10/21/16 Unknown Rx traMADol [Ultram 50 MG tab] 50 mg PO Q6HR PRN #14 tablet 08/03/17 Unknown Rx diphenhydrAMINE [Benadryl CAP] 25 mg PO Q6HR PRN #30 capsule 08/16/17 Unknown Rx predniSONE [Deltasone] 40 mg PO QDAY #5 tab 08/16/17 Unknown Rx Cephalexin [Keflex] 500 mg PO QID #40 capsule 03/26/18 Unknown Rx Ibuprofen [Motrin] 600 mg PO Q8H PRN #20 tablet 03/26/18 Unknown Rx Ondansetron [Zofran Odt] 4 mg PO Q8HR PRN #20 tab.rapdis 03/26/18 Unknown Rx Allergies Allergy/AdvReac Type Severity Reaction Status Date / Time codeine Allergy Intermediate Swelling Verified 03/26/18 07:34 ED Review of Systems ROS: Stated complaint: ADBOMINAL PAIN Other details as noted in HPI Comment: All other systems reviewed and negative Constitutional: denies: chills, fever Eyes: denies: eye pain, eye discharge ENT: denies: ear pain Respiratory: denies: cough, shortness of breath Cardiovascular: denies: chest pain, palpitations Endocrine: no symptoms reported Gastrointestinal: abdominal pain, nausea. denies: vomiting, diarrhea Genitourinary: denies: urgency, dysuria, frequency Musculoskeletal: denies: back pain, joint swelling Skin: denies: rash, lesions Neurological: denies: headache, weakness, numbness Psychiatric: denies: anxiety, depression Hematological/Lymphatic: denies: easy bleeding, easy bruising ED Past Medical Hx - Past Medical History Hx Hypertension: Yes Hx Congestive Heart Failure: No Hx Diabetes: Yes Hx Liver Disease: Yes (Hepatitis C in remission) Hx Sickle Cell Disease: No Hx Arthritis: Yes Hx Headaches / Migraines: Yes (MIGRAINES) Hx Psychiatric Treatment: Yes (Bipolar, Schizophrenia) Hx Asthma: No Hx COPD: No Additional medical history: high cholesterol, bipolar, schizophrenia, manic , hep c - Surgical History Additional Surgical History: Tubaligation - Social History Smoking Status: Never Smoker Substance Use Type: None - Medications Home Medications: Home Medications Medication Instructions Recorded Confirmed Last Taken Type Atorvastatin (Nf) [Lipitor] 40 mg PO QHS 08/11/13 10/15/16 10/10/16 History Hydralazine HCl [Apresoline TAB] 50 mg PO Q12H 08/11/13 10/15/16 10/10/16 History Lisinopril/Hydrochlorothiazide 10 mg PO DAILY 08/11/13 10/15/1610/10/17 History [Zestoretic 20-12.5 mg] Metformin HCl [Fortamet ER] 500 mg PO BID 08/11/13 10/15/16 10/10/16 History Simvastatin [Zocor TAB] 20 mg PO HS 08/11/13 10/15/16 10/10/16 History Ziprasidone HCl [Geodon] 80 mg PO DAILY 08/11/13 10/15/16 10/10/16 History carBAMazepine [TEGretol] 200 mg PO HS 08/11/13 10/15/16 10/10/16 History clonazePAM [KlonoPIN] 1 mg PO DAILY 08/11/13 10/15/16 Unknown History diphenhydrAMINE [Benadryl CAP] 50 mg PO HS 08/11/13 10/15/16 10/10/16 History Butalb/Acetaminophen/Caffeine 1 cap PO Q8HR PRN #30 cap 07/11/16 10/15/16 Unknown Rx [Fioricet 50-300-40 mg CAP] Levofloxacin [Levaquin TAB] 750 mg PO DAILY #14 tablet 10/21/16 Unknown Rx traMADol [Ultram 50 MG tab] 50 mg PO Q6HR PRN #14 tablet 08/03/17 Unknown Rx diphenhydrAMINE [Benadryl CAP] 25 mg PO Q6HR PRN #30 capsule 08/16/17 Unknown Rx predniSONE [Deltasone] 40 mg PO QDAY #5 tab 08/16/17 Unknown Rx Cephalexin [Keflex] 500 mg PO QID #40 capsule 03/26/18 Unknown Rx Ibuprofen [Motrin] 600 mg PO Q8H PRN #20 tablet 03/26/18 Unknown Rx Ondansetron [Zofran Odt] 4 mg PO Q8HR PRN #20 tab.rapdis 03/26/18 Unknown Rx ED Physical Exam - General Limitations: No Limitations General appearance: alert, in no apparent distress - Head Head exam: Present: atraumatic, normocephalic, normal inspection - Eye Eye exam: Present: normal appearance, PERRL, EOMI Pupils: Present: normal accommodation - ENT ENT exam: Present: normal exam, mucous membranes dry, mucous membranes moist - Neck Neck exam: Present: normal inspection, full ROM. Absent: tenderness - Respiratory Respiratory exam: Present: normal lung sounds bilaterally. Absent: respiratory distress, wheezes, rales, rhonchi - Cardiovascular Cardiovascular Exam: Present: regular rate, normal rhythm, normal heart sounds - GI/Abdominal GI/Abdominal exam: Present: soft, tenderness, normal bowel sounds. Absent: distended, guarding, rebound - Extremities Exam Extremities exam: Present: normal inspection, full ROM, normal capillary refill. Absent: tenderness - Back Exam Back exam: Present: normal inspection, full ROM, CVA tenderness (L). Absent: tenderness, CVA tenderness (R) - Neurological Exam Neurological exam: Present: alert, oriented X3, CN II-XII intact - Psychiatric Psychiatric exam: Present: normal affect, normal mood - Skin Skin exam: Present: warm, dry, intact, normal color. Absent: rash ED Course Vital Signs 03/26/18 03/26/18 07:34 09:20 Temperature 97.7 F 97.6 F Pulse Rate 75 66 Respiratory 16 16 Rate Blood Pressure 144/94 Blood Pressure 161/97 [Left] O2 Sat by Pulse 98 100 Oximetry - Reevaluation(s) Reevaluation #1: 03/26/18 11:51 Patient says she feels much better after receiving treatment in the emergency room. We'll go ahead and discharge her home to follow with her primary doctor or Dr. Machuca. ED Medical Decision Making - Lab Data Result diagrams: 03/26/18 07:46 03/26/18 07:46 - Radiology Data Radiology results: report reviewed, image reviewed - Medical Decision Making Left flank pain. Critical care attestation.: If time is entered above; I have spent that time in minutes in the direct care of this critically ill patient, excluding procedure time. ED Disposition Clinical Impression: Acute left flank pain UTI (urinary tract infection) Qualifiers: Urinary tract infection type: acute cystitis Hematuria presence: without hematuria Qualified Code(s): N30.00 - Acute cystitis without hematuria Disposition: TO HOME OR SELFCARE Is pt being admited?: No Does the pt Need Aspirin: No Condition: Stable Instructions: Urinary Tract Infection in Women (ED), Abdominal Pain (ED) Additional Instructions: please follow up with her primary doctor with Dr. Machuca on Wednesday. Return to the emergency room if her condition worsens. Prescriptions: Cephalexin [Keflex] 500 mg PO QID #40 capsule Ibuprofen [Motrin] 600 mg PO Q8H PRN #20 tablet PRN Reason: Pain Ondansetron [Zofran Odt] 4 mg PO Q8HR PRN #20 tab.rapdis PRN Reason: Nausea And Vomiting Referrals: PRIMARY CARE,MD [Primary Care Provider] - 3-5 Days MACHUCAALEJANDRO DC JR, MD [Staff Physician] - 3-5 Days Time of Disposition: 11:14
[2018-03-26 08:23] LABS: WBC,Urine > 182.0 /HPF (0.0-6.0)
[2018-03-26] MEDS ORDERED: TORADOL IV ONE (08:50)
[2018-03-26] MEDS ORDERED: ZOFRAN IV ONE (08:50)
[2018-03-26] MEDS ORDERED: ROCEPHIN/NS 1 GM/50 ML 1 GM/50 ML BAG IV NR (09:30)
--- NOTE | 2018-03-26 10:59 | Cat Scan Report ---
FINAL REPORT EXAM: CT ABDOMEN PELVIS W CON HISTORY: abdominal pain COMPARISON: CT of the abdomen and pelvis performed on 10/19/2016 TECHNIQUE: Multiple contiguous axial images were obtained from the lung bases to the pubic symphysis after administration of IV contrast. Reformatted sagittal and coronal images were available for review. FINDINGS: Lung bases: Normal. Visualized heart and mediastinum: Normal. Liver: Normal. Spleen: Normal. Pancreas: Normal. Gallbladder and Biliary Tree: No calcified gallstones. No biliary ductal dilatation. Adrenal glands: Normal. Kidneys: Symmetric enhancement to both kidneys. No hydronephrosis. Bladder: Normal. Pelvic organs: Normal. Bowel: No focal wall thickening. No evidence of obstruction normal appendix without surrounding inflammatory change Peritoneum: No significant mesenteric adenopathy. No free air or free fluid. Vasculature: Abdominal aorta is normal in caliber without evidence of aneurysm. Scattered atherosclerotic calcifications. Normal appearance of the portal venous system and the inferior vena cava. Bones and soft tissues: No suspicious osseous lesions.No acute fracture or dislocation. Small periumbilical hernia which contains fat and a portion of a small bowel loop. No evidence of bowel obstruction. Findings are similar to the previous study. IMPRESSION: No acute intra-abdominal pathology. Small periumbilical hernia which contains fat and a portion of a small bowel loop. No associated bowel obstruction.
[2018-03-26 11:49] VITALS: BP 134/59
== END 2018-03-26 11:20 | disposition home or self-care (01) ==
LOC: ED 07:29
DX: N30.00 Acute cystitis without hematuria (principal); I10 Essential (primary) hypertension; E11.9 Type 2 diabetes mellitus without complications; M19.90 Unspecified osteoarthritis, unspecified site; G43.909 Migraine, unspecified, not intractable, without status migrainosus; E78.00 Pure hypercholesterolemia, unspecified; Z88.6 Allergy status to analgesic agent
CPT/HCPCS: 36415; 74177; 80053; 81001; 85025; 87086; 96365; 96375; 99284; J0696; J1885; J2405; J7030; Q9967; 96361

== ENCOUNTER 2018-04-05 07:01 | Emergency (ER) | payer MEDICAID ==
[2018-04-05 07:15] VITALS: BP 121/75
[2018-04-05] MEDS ORDERED: ZOFRAN ODT PO ONE (08:08)
[2018-04-05] MEDS ORDERED: TORADOL IM ONE (08:08)
--- NOTE | 2018-04-05 08:09 | Emergency Department Report ---
ED ENT HPI - General Chief complaint: Dental/Oral Stated complaint: SORE ON TONGUE Time Seen by Provider: 04/05/18 07:26 Source: patient Mode of arrival: Ambulatory Limitations: No Limitations - History of Present Illness Initial comments: System 57-year-old -[place] female who presents with a bump to right side of tongue. Patient states she woke up this morning and then felt pain on right side of tongue and noticed the large bump. The patient is painful to touch. She is also complaining of a headache and feeling nauseous. Patient reports headache is 8 out of 10 on pain scale worse with light. Patient denies recent trauma or biting tongue. Patient denies past medical history seizures. Admits to past medical history of diabetes type 2, chronic headaches, hypertension, and arthritis. Patient denies sore throat, tongue swelling, drooling, fever, cough, congestion, and vomiting. MD complaint: other (bump on right side of tongue) -: This morning Location: tongue (right side of tongue) Severity: moderate Severity scale (0 -10): 7 Quality: aching Consistency: constant Improves with: none Worsens with: eating, movement Associated Symptoms: denies: fever, cough, gum swelling, toothache, pain with swallowing, sore throat, tinnitus, hearing loss, discharge from ear, rhinorrhea - Related Data Home Medications Medication Instructions Recorded Confirmed Last Taken Atorvastatin (Nf) [Lipitor] 40 mg PO QHS 08/11/13 10/15/16 10/10/16 Hydralazine HCl [Apresoline TAB] 50 mg PO Q12H 08/11/13 10/15/16 10/10/16 Lisinopril/Hydrochlorothiazide 10 mg PO DAILY 08/11/13 10/15/16 10/10/16 [Zestoretic 20-12.5 mg] Metformin HCl [Fortamet ER] 500 mg PO BID 08/11/13 10/15/16 10/10/16 Simvastatin [Zocor TAB] 20 mg PO HS 08/11/13 10/15/16 10/10/16 Ziprasidone HCl [Geodon] 80 mg PO DAILY 08/11/13 10/15/16 10/10/16 carBAMazepine [TEGretol] 200 mg PO HS 08/11/13 10/15/16 10/10/16 clonazePAM [KlonoPIN] 1 mg PO DAILY 08/11/13 10/15/16 Unknown diphenhydrAMINE [Benadryl CAP] 50 mg PO HS 08/11/13 10/15/16 10/10/16 Previous Rx's Medication Instructions Recorded Last Taken Type Butalb/Acetaminophen/Caffeine 1 cap PO Q8HR PRN #30 cap 07/11/16 Unknown Rx [Fioricet 50-300-40 mg CAP] Levofloxacin [Levaquin TAB] 750 mg PO DAILY #14 tablet 10/21/16 Unknown Rx traMADol [Ultram 50 MG tab] 50 mg PO Q6HR PRN #14 tablet 08/03/17 Unknown Rx diphenhydrAMINE [Benadryl CAP] 25 mg PO Q6HR PRN #30 capsule 08/16/17 Unknown Rx predniSONE [Deltasone] 40 mg PO QDAY #5 tab 08/16/17 Unknown Rx Cephalexin [Keflex] 500 mg PO QID #40 capsule 03/26/18 Unknown Rx Ibuprofen [Motrin] 600 mg PO Q8H PRN #20 tablet 03/26/18 Unknown Rx Ondansetron [Zofran Odt] 4 mg PO Q8HR PRN #20 tab.rapdis 03/26/18 Unknown Rx Nystas/Diphen/Xyl Visc/Mylanta 30 ml MM Q4H PRN #150 ml 04/05/18 Unknown Rx [Magic Mouthwash] Triamcinolone Acetonide [Oralone 5 gm DT TID #1 paste..g. 04/05/18 Unknown Rx 0.1% PASTE] Allergies Allergy/AdvReac Type Severity Reaction Status Date / Time codeine Allergy Intermediate Swelling Verified 04/05/18 07:12 ED Dental HPI - General Chief complaint: Dental/Oral Stated complaint: SORE ON TONGUE Time Seen by Provider: 04/05/18 07:26 Source: patient Mode of arrival: Ambulatory Limitations: No Limitations - Related Data Home Medications Medication Instructions Recorded Confirmed Last Taken Atorvastatin (Nf) [Lipitor] 40 mg PO QHS 08/11/13 10/15/16 10/10/16 Hydralazine HCl [Apresoline TAB] 50 mg PO Q12H 08/11/13 10/15/16 10/10/16 Lisinopril/Hydrochlorothiazide 10 mg PO DAILY 08/11/13 10/15/1610/10/17 [Zestoretic 20-12.5 mg] Metformin HCl [Fortamet ER] 500 mg PO BID 08/11/13 10/15/16 10/10/16 Simvastatin [Zocor TAB] 20 mg PO HS 08/11/13 10/15/16 10/10/16 Ziprasidone HCl [Geodon] 80 mg PO DAILY 08/11/13 10/15/16 10/10/16 carBAMazepine [TEGretol] 200 mg PO HS 08/11/13 10/15/16 10/10/16 clonazePAM [KlonoPIN] 1 mg PO DAILY 08/11/13 10/15/16 Unknown diphenhydrAMINE [Benadryl CAP] 50 mg PO HS 08/11/13 10/15/16 10/10/16 Previous Rx's Medication Instructions Recorded Last Taken Type Butalb/Acetaminophen/Caffeine 1 cap PO Q8HR PRN #30 cap 07/11/16 Unknown Rx [Fioricet 50-300-40 mg CAP] Levofloxacin [Levaquin TAB] 750 mg PO DAILY #14 tablet 10/21/16 Unknown Rx traMADol [Ultram 50 MG tab] 50 mg PO Q6HR PRN #14 tablet 08/03/17 Unknown Rx diphenhydrAMINE [Benadryl CAP] 25 mg PO Q6HR PRN #30 capsule 08/16/17 Unknown Rx predniSONE [Deltasone] 40 mg PO QDAY #5 tab 08/16/17 Unknown Rx Cephalexin [Keflex] 500 mg PO QID #40 capsule 03/26/18 Unknown Rx Ibuprofen [Motrin] 600 mg PO Q8H PRN #20 tablet 03/26/18 Unknown Rx Ondansetron [Zofran Odt] 4 mg PO Q8HR PRN #20 tab.rapdis 03/26/18 Unknown Rx Nystas/Diphen/Xyl Visc/Mylanta 30 ml MM Q4H PRN #150 ml 04/05/18 Unknown Rx [Magic Mouthwash] Triamcinolone Acetonide [Oralone 5 gm DT TID #1 paste..g. 04/05/18 Unknown Rx 0.1% PASTE] Allergies Allergy/AdvReac Type Severity Reaction Status Date / Time codeine Allergy Intermediate Swelling Verified 04/05/18 07:12 ED Review of Systems ROS: Stated complaint: SORE ON TONGUE Other details as noted in HPI Constitutional: denies: chills, fever ENT: other (bump on the right side of tongue). denies: ear pain, throat pain, dental pain, hearing loss, epistaxis, congestion Respiratory: denies: cough, shortness of breath, wheezing Cardiovascular: denies: chest pain, palpitations Endocrine: no symptoms reported Gastrointestinal: denies: abdominal pain, nausea, diarrhea Skin: lesions (bump on right side of tongue). denies: rash Neurological: headache. denies: weakness, paresthesias Psychiatric: denies: anxiety, depression ED Past Medical Hx - Past Medical History Hx Hypertension: Yes Hx Congestive Heart Failure: No Hx Diabetes: Yes Hx Liver Disease: Yes (Hepatitis C in remission) Hx Sickle Cell Disease: No Hx Arthritis: Yes Hx Headaches / Migraines: Yes Hx Psychiatric Treatment: Yes (Bipolar, Schizophrenia) Hx Asthma: No Hx COPD: No Additional medical history: high cholesterol - Surgical History Additional Surgical History: Tubaligation - Social History Smoking Status: Never Smoker Substance Use Type: None - Medications Home Medications: Home Medications Medication Instructions Recorded Confirmed Last Taken Type Atorvastatin (Nf) [Lipitor] 40 mg PO QHS 08/11/13 10/15/16 10/10/16 History Hydralazine HCl [Apresoline TAB] 50 mg PO Q12H 08/11/13 10/15/16 10/10/16 History Lisinopril/Hydrochlorothiazide 10 mg PO DAILY 08/11/13 10/15/16 10/10/16 History [Zestoretic 20-12.5 mg] Metformin HCl [Fortamet ER] 500 mg PO BID 08/11/13 10/15/16 10/10/16 History Simvastatin [Zocor TAB] 20 mg PO HS 08/11/13 10/15/16 10/10/16 History Ziprasidone HCl [Geodon] 80 mg PO DAILY 08/11/13 10/15/16 10/10/16 History carBAMazepine [TEGretol] 200 mg PO HS 08/11/13 10/15/16 10/10/16 History clonazePAM [KlonoPIN] 1 mg PO DAILY 08/11/13 10/15/16 Unknown History diphenhydrAMINE [Benadryl CAP] 50 mg PO HS 08/11/13 10/15/16 10/10/16 History Butalb/Acetaminophen/Caffeine 1 cap PO Q8HR PRN #30 cap 07/11/16 10/15/16 Unknown Rx [Fioricet 50-300-40 mg CAP] Levofloxacin [Levaquin TAB] 750 mg PO DAILY #14 tablet 10/21/16 Unknown Rx traMADol [Ultram 50 MG tab] 50 mg PO Q6HR PRN #14 tablet 08/03/17 Unknown Rx diphenhydrAMINE [Benadryl CAP] 25 mg PO Q6HR PRN #30 capsule 08/16/17 Unknown Rx predniSONE [Deltasone] 40 mg PO QDAY #5 tab 08/16/17 Unknown Rx Cephalexin [Keflex] 500 mg PO QID #40 capsule 03/26/18 Unknown Rx Ibuprofen [Motrin] 600 mg PO Q8H PRN #20 tablet 03/26/18 Unknown Rx Ondansetron [Zofran Odt] 4 mg PO Q8HR PRN #20 tab.rapdis 03/26/18 Unknown Rx Nystas/Diphen/Xyl Visc/Mylanta 30 ml MM Q4H PRN #150 ml 04/05/18 Unknown Rx [Magic Mouthwash] Triamcinolone Acetonide [Oralone 5 gm DT TID #1 paste..g. 04/05/18 Unknown Rx 0.1% PASTE] ED Physical Exam - General Limitations: No Limitations General appearance: alert, in no apparent distress - ENT ENT exam: Present: mucous membranes moist, other (5-6 cm nodule right side of tongue, tenderness, no surrounding cellulitis or swelling) - Neck Neck exam: Present: normal inspection, full ROM. Absent: tenderness, meningismus, lymphadenopathy, thyromegaly - Respiratory Respiratory exam: Present: normal lung sounds bilaterally. Absent: respiratory distress - Cardiovascular Cardiovascular Exam: Present: regular rate, normal rhythm. Absent: systolic murmur, diastolic murmur, rubs, gallop - GI/Abdominal GI/Abdominal exam: Present: soft, normal bowel sounds. Absent: organomegaly, mass - Neurological Exam Neurological exam: Present: alert, oriented X3 - Psychiatric Psychiatric exam: Present: normal affect, normal mood - Skin Skin exam: Present: warm, dry, intact, normal color. Absent: rash ED Course Vital Signs 04/05/18 07:12 Temperature 98.3 F Pulse Rate 102 H Respiratory 18 Rate Blood Pressure 121/75 O2 Sat by Pulse 98 Oximetry ED Medical Decision Making - Medical Decision Making This is a 57 y.o. female presents with painful bump to right side of tongue and migraine headache. Patient was examined by me. Vitals are normal and patient is in no acute distress. Patient given 30 mg IM and Zofran ODT 4 mg by mouth once while in ER. Start ibuprofen and cyclobenzaprine for pain. Start oralone and magic mouthwash for canker sores. Plan discussed with patient to discharge home and treat outpatient. He agrees with ER plan. Patient discharged home in stable condition. Follow up with PCP in 2-3 days. Critical care attestation.: If time is entered above; I have spent that time in minutes in the direct care of this critically ill patient, excluding procedure time. ED Disposition Clinical Impression: Aphthous stomatitis, Tongue lesion Disposition: TO HOME OR SELFCARE Is pt being admited?: No Does the pt Need Aspirin: No Condition: Stable Instructions: Canker Sores (ED) Additional Instructions: Avoid oral trauma, recognized trigger foods, and acidic foods and drinks. Follow up with primary care provider in 2-3 days. Follow up with ear, nose, and throat or dermatology for further evaluation. Prescriptions: Nystas/Diphen/Xyl Visc/Mylanta [Magic Mouthwash] 30 ml MM Q4H PRN #150 ml PRN Reason: Pain , Severe (7-10) Triamcinolone Acetonide [Oralone 0.1% PASTE] 5 gm DT TID #1 paste..g. Referrals: KACIE VALDEZ MD [Referring] - 3-5 Days [facility] [Outside] - 3-5 Days [facility] [Provider Group] - 3-5 Days [facility] [Provider Group] - 3-5 Days Time of Disposition: 09:34 Print Language: ROMANSH
== END 2018-04-05 09:42 | disposition home or self-care (01) ==
LOC: ED 07:01
DX: K12.0 Recurrent oral aphthae (principal); K13.70 Unspecified lesions of oral mucosa; R51 Headache; R11.0 Nausea; I10 Essential (primary) hypertension; E11.9 Type 2 diabetes mellitus without complications; M19.90 Unspecified osteoarthritis, unspecified site; F31.9 Bipolar disorder, unspecified; F20.9 Schizophrenia, unspecified; E78.00 Pure hypercholesterolemia, unspecified; Z98.51 Tubal ligation status; Z88.5 Allergy status to narcotic agent; Z79.84 Long term (current) use of oral hypoglycemic drugs
CPT/HCPCS: 96372; 99282; J1885; Q0162

== ENCOUNTER 2019-04-26 10:59 | Outpatient (CLI) | payer MEDICAID ==
[2019-04-26 11:48] LABS: Hematocrit 38.2 % (30.3-42.9); Hemoglobin 12.7 gm/dl (10.1-14.3); Mean Corpuscular HGB Conc 33 % (30-34); Mean Corpuscular Volume 93 fl (79-97); Platelet Count 255 K/mm3 (140-440); Red Blood Count 4.12 M/mm3 (3.65-5.03)
[2019-04-26 11:57] LABS: Alanine Aminotransferase 12 units/L (7-56); Albumin 4.6 g/dL (3.9-5); BUN/Creatinine Ratio 16; Blood Urea Nitrogen 13 mg/dL (7-17); Calcium 9.4 mg/dL (8.4-10.2); Chol/HDL Ratio 2.22 %; HDL Cholesterol 80 mg/dL (40-59); Hemolysis Index 4; LDL Cholesterol,Direct 99 mg/dL (50-130)
[2019-04-28 07:57] LABS: Vitamin D, 25-OH, D2 <4 ng/mL
== END 2019-04-26 11:00 | disposition home or self-care (01) ==
LOC: LAB 10:59
PROVIDERS: ATTEND Internal Medicine
DX: Z13.21 Encounter for screening for nutritional disorder (principal); E11.9 Type 2 diabetes mellitus without complications; E78.5 Hyperlipidemia, unspecified
CPT/HCPCS: 36415; 80053; 80061; 82306; 82607; 83036; 84443; 85027

== ENCOUNTER 2019-07-22 14:02 | Emergency (ER) | payer MEDICAID ==
[2019-07-22 14:26] VITALS: BP 152/96
--- NOTE | 2019-07-22 19:25 | Emergency Department Report ---
ED General Adult HPI - General Chief complaint: Extremity Problem,Nontraumatic Stated complaint: LT SIDE PAIN Time Seen by Provider: 07/22/19 19:14 Source: patient, family Mode of arrival: Ambulatory Limitations: No Limitations - History of Present Illness Initial comments: Patient here reports that she woke up this morning and having pain radiating randall n her hip all the way down to her distal leg. She denies any history of neuropathy. She says she has never had this kind of pain before. She reports pain is throbbing and sharp. She says she is feeling mostly in her hip and pain is 10/10 and a can. Denies any injuries. Patient goes to [facility] for primary care. She has a history of high blood pressure and high cholesterol diabetes, migraine headache and arthritis. Denies any urinary burning but reports some frequency. No pain medication prior to coming to the emergency room. Pain is worse with movement better. Denies any loss of bowel or bladder function. MD Complaint: pain to lower extremity -: This morning Location: lower extremity Radiation: distal Severity scale (0 -10): 10 Quality: aching, constant, other (throbbing) Consistency: constant Improves with: immobilization Worsens with: movement Associated Symptoms: denies: confusion, chest pain, cough, diaphoresis, heada ches, loss of appetite, malaise, nausea/vomiting, rash, seizure, shortness of breath, syncope, weakness Treatments Prior to Arrival: none - Related Data Home Medications Medication Instructions Recorded Confirmed Last Taken Atorvastatin (Nf) [Lipitor] 40 mg PO QHS 08/11/13 10/15/16 10/10/16 Hydralazine HCl [Apresoline TAB] 50 mg PO Q12H 08/11/13 10/15/16 10/10/16 Lisinopril/Hydrochlorothiazide 10 mg PO DAILY 08/11/13 10/15/16 10/10/16 [Zestoretic 20-12.5 mg] Metformin HCl [Fortamet ER] 500 mg PO BID 08/11/13 10/15/16 10/10/16 Simvastatin (Nf) [Zocor TAB] 20 mg PO HS 08/11/13 10/15/16 10/10/16 Ziprasidone HCl [Geodon] 80 mg PO DAILY 08/11/13 10/15/16 10/10/16 carBAMazepine [TEGretol] 200 mg PO HS 08/11/13 10/15/16 10/10/16 clonazePAM [KlonoPIN] 1 mg PO DAILY 08/11/13 10/15/16 Unknown diphenhydrAMINE [Benadryl CAP] 50 mg PO HS 08/11/13 10/15/16 10/10/16 Previous Rx's Medication Instructions Recorded Last Taken Type Butalb/Acetaminophen/Caffeine 1 cap PO Q8HR PRN #30 cap 07/11/16 Unknown Rx [Fioricet 50-300-40 mg CAP] levoFLOXacin [Levaquin TAB] 750 mg PO DAILY #14 tablet 10/21/16 Unknown Rx traMADoL [Ultram 50 MG tab] 50 mg PO Q6HR PRN #14 tablet 08/03/17 Unknown Rx diphenhydrAMINE [Benadryl CAP] 25 mg PO Q6HR PRN #30 capsule 08/16/17 Unknown Rx predniSONE [Deltasone] 40 mg PO QDAY #5 tab 08/16/17 Unknown Rx Cephalexin [Keflex] 500 mg PO QID #40 capsule 03/26/18 Unknown Rx Ibuprofen [Motrin] 600 mg PO Q8H PRN #20 tablet 03/26/18 Unknown Rx Ondansetron [Zofran Odt] 4 mg PO Q8HR PRN #20 tab.rapdis 03/26/18 Unknown Rx Ibuprofen [Motrin 800 MG tab] 800 mg PO Q8HR PRN #12 tablet 04/05/18 Unknown Rx Nystas/Diphen/Xyl Visc/Mylanta 30 ml MM Q4H PRN #150 ml 04/05/18 Unknown Rx [Magic Mouthwash] Triamcinolone Acetonide [Oralone 5 gm DT TID #1 paste..g. 04/05/18 Unknown Rx 0.1% PASTE] Cyclobenzaprine [Flexeril] 10 mg PO TID PRN #12 tablet 07/22/19 Unknown Rx Sulfamethoxazole/Trimethoprim 1 each PO BID 3 Days #6 tablet 07/22/19 Unknown Rx [Bactrim DS TAB] traMADoL [Ultram 50 MG tab] 50 mg PO Q6HR PRN #12 tablet 07/22/19 Unknown Rx Allergies Allergy/AdvReac Type Severity Reaction Status Date / Time codeine Allergy Intermediate Swelling Verified 04/05/18 07:12 ED Review of Systems ROS: Stated complaint: LT SIDE PAIN Other details as noted in HPI Constitutional: denies: chills, fever Respiratory: denies: cough, shortness of breath, wheezing Cardiovascular: denies: chest pain, palpitations, dyspnea on exertion, edema, syncope Gastrointestinal: denies: abdominal pain, nausea, vomiting Genitourinary: frequency. denies: urgency, dysuria, hematuria, discharge Musculoskeletal: arthralgia Skin: denies: rash Neurological: abnormal gait (due to pain). denies: headache, weakness, numbness, paresthesias Psychiatric: denies: anxiety ED Past Medical Hx - Past Medical History Previous Medical History?: Yes Hx Hypertension: Yes Hx Congestive Heart Failure: No Hx Diabetes: Yes Hx Liver Disease: Yes (Hepatitis C in remission) Hx Sickle Cell Disease: No Hx Arthritis: Yes Hx Headaches / Migraines: Yes Hx Psychiatric Treatment: Yes (Bipolar, Schizophrenia) Hx Asthma: No Hx COPD: No Additional medical history: high cholesterol - Surgical History Past Surgical History?: Yes Additional Surgical History: Tubaligation - Family History Family history: diabetes, hypertension - Social History Smoking Status: Former Smoker Substance Use Type: Non Opiate Pain - Medications Home Medications: Home Medications Medication Instructions Recorded Confirmed Last Taken Type Atorvastatin (Nf) [Lipitor] 40 mg PO QHS 08/11/13 10/15/16 10/10/16 History Hydralazine HCl [Apresoline TAB] 50 mg PO Q12H 08/11/13 10/15/16 10/10/16 History Lisinopril/Hydrochlorothiazide 10 mg PO DAILY 08/11/13 10/15/16 10/10/16 History [Zestoretic 20-12.5 mg] Metformin HCl [Fortamet ER] 500 mg PO BID 08/11/13 10/15/16 10/10/16 History Simvastatin (Nf) [Zocor TAB] 20 mg PO HS 08/11/13 10/15/16 10/10/16 History Ziprasidone HCl [Geodon] 80 mg PO DAILY 08/11/13 10/15/16 10/10/16 History carBAMazepine [TEGretol] 200 mg PO HS 08/11/13 10/15/16 10/10/16 History clonazePAM [KlonoPIN] 1 mg PO DAILY 08/11/13 10/15/16 Unknown History diphenhydrAMINE [Benadryl CAP] 50 mg PO HS 08/11/13 10/15/16 10/10/16 History Butalb/Acetaminophen/Caffeine 1 cap PO Q8HR PRN #30 cap 07/11/16 10/15/16 Unknown Rx [Fioricet 50-300-40 mg CAP] levoFLOXacin [Levaquin TAB] 750 mg PO DAILY #14 tablet 10/21/16 Unknown Rx traMADoL [Ultram 50 MG tab] 50 mg PO Q6HR PRN #14 tablet 08/03/17 Unknown Rx diphenhydrAMINE [Benadryl CAP] 25 mg PO Q6HR PRN #30 capsule 08/16/17 Unknown Rx predniSONE [Deltasone] 40 mg PO QDAY #5 tab 08/16/17 Unknown Rx Cephalexin [Keflex] 500 mg PO QID #40 capsule 03/26/18 Unknown Rx Ibuprofen [Motrin] 600 mg PO Q8H PRN #20 tablet 03/26/18 Unknown Rx Ondansetron [Zofran Odt] 4 mg PO Q8HR PRN #20 tab.rapdis 03/26/18 Unknown Rx Ibuprofen [Motrin 800 MG tab] 800 mg PO Q8HR PRN #12 tablet 04/05/18 Unknown Rx Nystas/Diphen/Xyl Visc/Mylanta 30 ml MM Q4H PRN #150 ml 04/05/18 Unknown Rx [Magic Mouthwash] Triamcinolone Acetonide [Oralone 5 gm DT TID #1 paste..g. 04/05/18 Unknown Rx 0.1% PASTE] Cyclobenzaprine [Flexeril] 10 mg PO TID PRN #12 tablet 07/22/19 Unknown Rx Sulfamethoxazole/Trimethoprim 1 each PO BID 3 Days #6 tablet 07/22/19 Unknown Rx [Bactrim DS TAB] traMADoL [Ultram 50 MG tab] 50 mg PO Q6HR PRN #12 tablet 07/22/19 Unknown Rx ED Physical Exam - General Limitations: No Limitations General appearance: alert, in no apparent distress - Head Head exam: Present: atraumatic, normocephalic, normal inspection - Eye Eye exam: Present: normal appearance, PERRL, EOMI. Absent: nystagmus Pupils: Present: normal accommodation - ENT ENT exam: Present: normal exam, normal orophraynx, mucous membranes moist - Neck Neck exam: Present: normal inspection, full ROM, other (no C-spine tenderness). Absent: tenderness, lymphadenopathy - Respiratory Respiratory exam: Present: normal lung sounds bilaterally. Absent: respiratory distress, chest wall tenderness - Cardiovascular Cardiovascular Exam: Present: regular rate, normal rhythm, normal heart sounds - GI/Abdominal GI/Abdominal exam: Present: soft, normal bowel sounds. Absent: distended, tenderness, organomegaly - Extremities Exam Extremities exam: Present: normal inspection, tenderness (hip, left), normal capillary refill, other (No cce. + 2 pulses in all extremities, no neurovascular compromise). Absent: full ROM (limited range of motion to left lower extremity due to pain.), pedal edema, joint swelling, calf tenderness - Expanded Lower Extremity Exam Left Hip exam: Present: normal inspection, tenderness, pelvic stability. Absent: f ull ROM (limited range of motion due to pain), swelling, abrasion, laceration, deformity, crepidus, dislocation, erythema, external rotation, internal rotation, shortening Upper Leg exam: Present: normal inspection, full ROM. Absent: tenderness, swelling, abrasion, laceration, ecchymosis, deformity, crepidus, dislocation, erythema Knee exam: Present: normal inspection, full ROM, full knee extension. Absent: tenderness, swelling, abrasion, laceration, ecchymosis, deformity, crepidus, dislocation, erythema, effusion, pain w/ pronation/supination, posterior draw sign, pain/laxity with valgus, pain/laxity with varus Lower Leg exam: Present: normal inspection, full ROM. Absent: tenderness, swelling, abrasion, laceration, ecchymosis, deformity, crepidus, dislocation, erythema, palpable cord, Ata's sign Ankle exam: Present: normal inspection. Absent: full ROM, tenderness, swelling, abrasion, laceration, ecchymosis, deformity, crepidus, dislocation, erythema Foot/Toe exam: Present: normal inspection, full ROM. Absent: tenderness, swelling, abrasion, laceration, ecchymosis, deformity, crepidus, dislocation, erythema, amputation, puncture wound, foreign body, calcaneal tenderness, tenderness at base of 5th metatarsal, nail avulsion, subungual hematoma Neuro vascular tendon exam: Present: no vascular compromise Gait: Positive: antalgic - Back Exam Back exam: Present: normal inspection, tenderness ( lumbar spine), vertebral tenderness (lumbar spine), other (difficulty ambulating due to pain. She ambulates with limp to the left side). Absent: full ROM (limited range of motion), CVA tenderness (R), CVA tenderness (L), muscle spasm, paraspinal tenderness, rash noted - Expanded Back Exam Expanded Back exam: Positive Straight Leg Raise: Left, Negative Straight Leg Raising: Right - Neurological Exam Neurological exam: Present: alert, oriented X3, abnormal gait (due to pain left lower extremity), reflexes normal - Expanded Neurological Exam Expanded Neurological exam: Absent: innattentive, memory loss-remote event, memory loss- recent event, ataxia, receptive aphasia, expressive aphasia, total aphasia, tremor, protecting the airway Patient oriented to: Present: person, place, time Speech: Present: fluid speech Cranial nerves: EOM's Intact: Normal, Gag Reflex: Normal, Tongue Deviation: Normal, Nystagmus: Normal, Facial Sensation: Normal Cerebellar function: Finger to Nose: Normal Upper motor neuron: Pronator Drift: Normal, Sensory Extinction: Normal Sensory exam: Upper Extremity Light Touch: Normal, Upper Extremity Pin Prick: Normal, Upper Extremity Temperature: Normal, Lower Extremity Light Touch: Normal, Lower Extremity Pin Prick: Normal, Lower Extremity Temperature: Normal Motor strength exam: RUE: 5, LUE: 5, RLE: 5, LLE: 5 DTR: knee (R): 2+, knee (L): 2+, ankle (R): 2+, ankle (L): 2+ Best Eye Response ([place]): (4) open spontaneously Best Motor Response ([place]): (6) obeys commands Best Verbal Response ([place]): (5) oriented [place] Total: 15 - Psychiatric Psychiatric exam: Present: normal affect, normal mood - Skin Skin exam: Present: warm, dry, intact, normal color. Absent: rash ED Course Vital Signs 07/22/19 14:21 Temperature 98.5 F Pulse Rate 96 H Respiratory 18 Rate Blood Pressure 152/96 O2 Sat by Pulse 97 Oximetry - Reevaluation(s) Reevaluation #1: 07/22/19 21:21 She given [place] 5/325 mg 2 tablets by mouth, Flexeril 10 mg by mouth and Benadryl 25 mg IM. Of and reevaluation patient ambulatory and she said her pain is better. ED Medical Decision Making - Lab Data Result diagrams: 07/22/19 19:47 07/22/19 19:47 Lab Results 07/22/19 07/22/19 07/22/19 Range/Units 19:47 19:47 19:52 WBC 5.8 (4.5-11.0) K/mm3 RBC 4.31 (3.65-5.03) M/mm3 Hgb 13.3 (10.1-14.3) gm/dl Hct 40.5 (30.3-42.9) % MCV 94 (79-97) fl MCH 31 (28-32) pg MCHC 33 (30-34) % RDW 13.3 (13.2-15.2) % Plt Count 247 (140-440) K/mm3 Lymph % (Auto) Engineering Professor Add Manual Diff Complete Total Counted 100 Seg Neutrophils % Engineering Professor Seg Neuts % (Manual) 33.0 L (40.0-70.0) % Band Neutrophils % 0 % Lymphocytes % (Manual) 58.0 H (13.4-35.0) % Reactive Lymphs % (Man) 0 % Monocytes % (Manual) 6.0 (0.0-7.3) % Eosinophils % (Manual) 2.0 (0.0-4.3) % Basophils % (Manual) 1.0 (0.0-1.8) % Metamyelocytes % 0 % Myelocytes % 0 % Promyelocytes % 0 % Blast Cells % 0 % Nucleated RBC % Not Reportable Seg Neutrophils # Man 1.9 (1.8-7.7) K/mm3 Band Neutrophils # 0.0 K/mm3 Lymphocytes # (Manual) 3.4 (1.2-5.4) K/mm3 Abs React Lymphs (Man) 0.0 K/mm3 Monocytes # (Manual) 0.3 (0.0-0.8) K/mm3 Eosinophils # (Manual) 0.1 (0.0-0.4) K/mm3 Basophils # (Manual) 0.1 (0.0-0.1) K/mm3 Metamyelocytes # 0.0 K/mm3 Myelocytes # 0.0 K/mm3 Promyelocytes # 0.0 K/mm3 Blast Cells # 0.0 K/mm3 WBC Morphology Not Reportable Hypersegmented Neuts Not Reportable Hyposegmented Neuts Not Reportable Hypogranular Neuts Not Reportable Smudge Cells Not Reportable Toxic Granulation Not Reportable Toxic Vacuolation Not Reportable Dohle Bodies Not Reportable Pelger-Huet Anomaly Not Reportable Caleb Rods Not Reportable Platelet Estimate Not Reportable Clumped Platelets Not Reportable Plt Clumps, EDTA Not Reportable Large Platelets Not Reportable Giant Platelets Not Reportable Platelet Satelliting Not Reportable Plt Morphology Comment Not Reportable RBC Morphology Normal Dimorphic RBCs Not Reportable Polychromasia Not Reportable Hypochromasia Not Reportable Poikilocytosis Not Reportable Anisocytosis Not Reportable Microcytosis Not Reportable Macrocytosis Not Reportable Spherocytes Not Reportable Pappenheimer Bodies Not Reportable Sickle Cells Not Reportable Target Cells Not Reportable Tear Drop Cells Not Reportable Ovalocytes Not Reportable Helmet Cells Not Reportable Gray-Pierron Bodies Not Reportable Fenton Rings Not Reportable Tete Cells Not Reportable Bite Cells Not Reportable Crenated Cell Not Reportable Elliptocytes Not Reportable Acanthocytes (Spur) Not Reportable Rouleaux Not Reportable Hemoglobin C Crystals Not Reportable Schistocytes Not Reportable Malaria parasites Not Reportable Brian Bodies Not Reportable Hem Pathologist Commnt No Sodium 139 (137-145) mmol/L Potassium 3.6 (3.6-5.0) mmol/L Chloride 97.9 L (98-107) mmol/L Carbon Dioxide 25 (22-30) mmol/L Anion Gap 20 mmol/L BUN 10 (7-17) mg/dL Creatinine 0.9 (0.7-1.2) mg/dL Estimated GFR > 60 ml/min BUN/Creatinine Ratio 11 % Glucose 99 (65-100) mg/dL Calcium 10.1 (8.4-10.2) mg/dL Urine Color Yellow (Yellow) Urine Turbidity Clear (Clear) Urine pH 5.0 (5.0-7.0) Ur Specific [place] 1.018 (1.003-1.030) Urine Protein 30 mg/dl (Negative) mg/dL Urine Glucose (UA) Neg (Negative) mg/dL Urine Ketones Neg (Negative) mg/dL Urine Blood Neg (Negative) Urine Nitrite Neg (Negative) Urine Bilirubin Neg (Negative) Urine Urobilinogen < 2.0 (<2.0) mg/dL Ur Leukocyte Esterase Tr (Negative) Urine WBC (Auto) 18.0 H (0.0-6.0) /HPF Urine RBC (Auto) 2.0 (0.0-6.0) /HPF U Epithel Cells (Auto) 1.0 (0-13.0) /HPF Urine Bacteria (Auto) 4+ (Negative) /HPF Urine Mucus Few /HPF Urine culture sent - Radiology Data Radiology results: report reviewed Patient had x-ray of left hip and CT scan of lumbar spine this is dictated by radiologist and report reviewed by myself. I am unable to populate results in this area at present due to malfunction in computer. Her CT scan shows degenerative disc disease with for minimal narrowing bilaterally and lumbar stenosis. X-ray of left hip normal exam. - Medical Decision Making This is a 59-year-old female here reports that she is having pain to her left lower extremity that started this morning. Patient found to have left lumbar radiculopathy. CT scan positive for degenerative disc disease to lumbar spine and stenosis with narrowing. There is no acute findings. X-ray of left hip is normal findings. Patient also had lab work which was stable except for urinalysis that shows bacterial infection urinary frequency. I discussed with patient her radiology and lab results and she voiced understanding. I discussed with her that she needs to follow up with her primary care physician at [facility] in [place] in 2-3 days, and I will refer her to Dr. Singh orthopedic doctor and also resurgent regarding CT finding of lumbar spine. Patient is stable and in no acute distress at present she is able to ambulate. Discharged home with her family member in stable condition with prescription for Ultram and Flexeril. - Differential Diagnosis lumbar spine disease, neuropathy versus radiculopathy, fracture, UTI Critical care attestation.: If time is entered above; I have spent that time in minutes in the direct care of this critically ill patient, excluding procedure time. ED Disposition Clinical Impression: Acute left lumbar radiculopathy, Acute cystitis without hematuria, Degenerative disc disease, lumbar Disposition: DC-01 TO HOME OR SELFCARE Is pt being admited?: No Does the pt Need Aspirin: No Condition: Stable Instructions: Lumbar Spinal Stenosis (ED), Lumbar Radiculopathy (ED), Degenerative Disc Disease (ED), Core Strengthening Exercises (GEN), Urinary Tract Infection in Women (ED) Additional Instructions: Please follow-up with your primary care physician at [facility] See discharge instruction paperwork for referral to orthopedic doctor regarding findings for degenerative disc disease in your lumbar spine with new onset radiculopathy. If you condition worsens, return to the emergency room. Increase fluid intake and take antibiotic as prescribed for urinary tract infection Take Ultram and Flexeril for pain but please do not drive or operate heavy machinery while taking this medication as it can cause drowsiness. Please bring CD with you to your orthopedic visits Referrals: BRAIN TALAMANTES MD [Primary Care Provider] - 2-3 Days DAISY SINGH MD [Staff Physician] - 2-3 Days [facility] [Provider Group] - 2-3 Days Forms: Work/School Release Form(ED), Accompanied Note
[2019-07-22] MEDS ORDERED: HYDROcodone/ACETAMINOPHEN 5-325 MG TAB PO ONE (19:29)
[2019-07-22] MEDS ORDERED: CYCLOBENZAPRINE 10 MG TAB PO ONE (19:29)
[2019-07-22] MEDS ORDERED: diphenhydrAMINE 50 MG/ML VIAL IM ONE (19:29)
[2019-07-22 19:58] LABS: Hematocrit 40.5 % (30.3-42.9); Hemoglobin 13.3 gm/dl (10.1-14.3); Mean Corpuscular HGB Conc 33 % (30-34); Mean Corpuscular Volume 94 fl (79-97); Platelet Count 247 K/mm3 (140-440); Red Blood Count 4.31 M/mm3 (3.65-5.03); Red Cell Distribution Width 13.3 % (13.2-15.2)
[2019-07-22 20:09] LABS: BUN/Creatinine Ratio 11; Blood Urea Nitrogen 10 mg/dL (7-17); Calcium 10.1 mg/dL (8.4-10.2); Hemolysis Index 5
--- NOTE | 2019-07-22 20:12 | XRay Report ---
LEFT HIP RADIOGRAPHS 2 VIEWS INDICATION / CLINICAL INFORMATION: LT hip pain, severe COMPARISON: None available. FINDINGS: BONES / JOINT(S): No acute fracture or subluxation. No significant arthritis. SOFT TISSUES: No significant abnormality. ADDITIONAL FINDINGS: None. Signer Name: Geoff Messina MD Signed: 07/22/2019 8:08 PM Workstation Name: [id number]
--- NOTE | 2019-07-22 20:21 | Cat Scan Report ---
CT LUMBAR SPINE WITHOUT CONTRAST INDICATION: Low back pain and lumbar radiculopathy. TECHNIQUE: Axial CT images of the spine were obtained. Sagittal and coronal reformatted images were produced. Al l CT scans at this location are performed using CT dose reduction for ALARA by means of automated exp osure control. COMPARISON: CT abdomen and pelvis on 03/26/2018 FINDINGS: ACUTE FRACTURE(S) OR SUBLUXATION: None. SPINAL DEGENERATIVE CHANGES: There is moderate bilateral facet DJD at L4-5 and L5-S1 with minimal gra de 1 degenerative anterolisthesis of L4 on L5. The anterolisthesis at L4-5 appears to result in mild central canal stenosis as well as mild bilateral neural foraminal narrowing. Remaining alignment is n ormal. PARASPINAL SOFT TISSUES: No soft tissue swelling or other acute abnormalities. ADDITIONAL FINDINGS: No significant additional findings. IMPRESSION: 1. No acute fracture or subluxation in the spine in neutral position. 2. Degenerative findings at L4-5 and L5-S1 as described. Signer Name: Rian Martinez MD Signed: 07/22/2019 8:17 PM Workstation Name: [email or web address]
[2019-07-22 20:22] LABS: Bacteria,Urine 4+ /HPF (Negative); Bilirubin,Urine NEG (Negative); Blood,Urine NEG (Negative); Color,Urine Yellow (Yellow); Mucus,Urine FEW /HPF; Urobilinogen,Urine < 2.0 mg/dL (<2.0)
[2019-07-22 20:43] LABS: RBC Morphology Normal; Total Cells Counted 100
== END 2019-07-22 22:00 | disposition home or self-care (01) ==
LOC: ED 14:02
DX: M51.16 Intervertebral disc disorders with radiculopathy, lumbar region (principal); N30.00 Acute cystitis without hematuria; I10 Essential (primary) hypertension; E11.9 Type 2 diabetes mellitus without complications; G43.909 Migraine, unspecified, not intractable, without status migrainosus; F20.9 Schizophrenia, unspecified; F31.9 Bipolar disorder, unspecified; E78.00 Pure hypercholesterolemia, unspecified; Z87.891 Personal history of nicotine dependence; Z98.51 Tubal ligation status; Z79.899 Other long term (current) drug therapy; Z88.4 Allergy status to anesthetic agent; M19.91 Primary osteoarthritis, unspecified site
CPT/HCPCS: 36415; 72131; 73502; 80048; 81001; 85007; 85025; 87076; 87086; 87186; 96372; 99284; J1200

== ENCOUNTER 2020-07-31 23:02 | Emergency (ER) | payer MEDICAID ==
[2020-08-01 00:14] VITALS: BP 106/74
[2020-08-01] MEDS ORDERED: KETOROLAC 30 MG/1 ML INJ IM ONE (02:03)
[2020-08-01] MEDS ORDERED: BUTALB/ACETAMINOPHEN/CAFFEINE TAB PO ONE (02:03)
[2020-08-01] MEDS ORDERED: ONDANSETRON 4 MG ODT TAB PO ONE (02:03)
--- NOTE | 2020-08-01 02:29 | Emergency Department Report ---
ED Headache HPI - General Chief Complaint: Headache Stated Complaint: HEADACHE Source: patient Exam Limitations: no limitations - History of Present Illness Initial Comments: Patient is a 60-year-old -Citizen Of [place] female with a history of hypertension, sfa-pqkjdst-qwufwxglo diabetes, hyperlipidemia, chronic osteoarthritis, migraine headaches, bipolar disorder, schizophrenia and chronic hepatitis C disease in remission who presents to the ED with complaint of acute exacerbation of her chronic migraine headaches characterized by severe frontal pressure-like sharp headache for the last 8 hours. Patient states that she took spql-yvj-gytrgjv medications for pain with no relief. Patient states that these headaches are typical of her chronic migraine headaches that she usually gets at the same time every year. Patient denies dizziness, syncope, seizures, fever, chills, cough, sore throat, nasal and sinus congestion, nausea, vomiting, change in vision, neck pain, shortness of breath, change in speech, traumatic injury or abdominal pain. Timing/Duration: 4-6 hours, constant, waxing and waning Quality: severe, constant, sharp, throbbing Head Injury Location: frontal Recent Head Trauma: no recent headache/trauma, chronic headaches Modifying Factors: improves with: other (No OTC medications helpful) Associated Symptoms: denies symptoms. denies: confusion, fatigue, facial pain, fever/chills, flushing, loss of consciousness, nausea/vomiting, nasal congestion, nasal drainage, numbness in legs/feet, seizures, sinus infection, stiff neck, vision changes, weakness, other Allergies/Adverse Reactions: Allergies codeine Allergy (Intermediate, Verified 04/05/18 07:12) Swelling Home Medications: Ambulatory Orders Atorvastatin (Nf) [Lipitor] 40 mg PO QHS 08/11/13 Hydralazine HCl [Apresoline TAB] 50 mg PO Q12H 08/11/13 Lisinopril/Hydrochlorothiazide [Zestoretic 20-12.5 mg] 10 mg PO DAILY 08/11/13 Metformin HCl [Fortamet ER] 500 mg PO BID 08/11/13 Simvastatin (Nf) [Zocor TAB] 20 mg PO HS 08/11/13 Ziprasidone HCl [Geodon] 80 mg PO DAILY 08/11/13 carBAMazepine [TEGretol] 200 mg PO HS 08/11/13 clonazePAM [KlonoPIN] 1 mg PO DAILY 08/11/13 diphenhydrAMINE [Benadryl CAP] 50 mg PO HS 08/11/13 levoFLOXacin [Levaquin TAB] 750 mg PO DAILY #14 tablet 10/21/16 traMADoL [Ultram 50 MG tab] 50 mg PO Q6HR PRN #14 tablet 08/03/17 diphenhydrAMINE [Benadryl CAP] 25 mg PO Q6HR PRN #30 capsule 08/16/17 predniSONE [Deltasone] 40 mg PO QDAY #5 tab 08/16/17 Cephalexin [Keflex] 500 mg PO QID #40 capsule 03/26/18 Ibuprofen [Motrin] 600 mg PO Q8H PRN #20 tablet 03/26/18 Ondansetron [Zofran Odt] 4 mg PO Q8HR PRN #20 tab.rapdis 03/26/18 Ibuprofen [Motrin 800 MG tab] 800 mg PO Q8HR PRN #12 tablet 04/05/18 Nystas/Diphen/Xyl Visc/Mylanta [Magic Mouthwash] 30 ml MM Q4H PRN #150 ml 0 04/05/18 Triamcinolone Acetonide [Oralone 0.1% PASTE] 5 gm DT TID #1 paste..g. 04/05/18 Cyclobenzaprine [Flexeril] 10 mg PO TID PRN #12 tablet 07/22/19 Sulfamethoxazole/Trimethoprim [Bactrim DS TAB] 1 each PO BID 3 Days #6 tablet 07/22/19 traMADoL [Ultram 50 MG tab] 50 mg PO Q6HR PRN #12 tablet 07/22/19 Butalb/Acetaminophen/Caffeine [Fioricet 50-300-40 mg CAP] 1 - 2 cap PO Q8HR PRN #15 cap 08/01/20 Ketorolac [Toradol] 10 mg PO Q8H PRN #20 tablet 08/01/20 Promethazine [Phenergan] 25 mg PO Q6HR PRN #30 tab 08/01/20 ED Review of Systems ROS: Stated complaint: HEADACHE Other details as noted in HPI Constitutional: denies: chills, fever Eyes: denies: eye pain, eye discharge, vision change ENT: denies: ear pain, throat pain Respiratory: denies: cough, shortness of breath, wheezing Cardiovascular: denies: chest pain, palpitations Endocrine: no symptoms reported Gastrointestinal: denies: abdominal pain, nausea, diarrhea Genitourinary: denies: urgency, dysuria, discharge Musculoskeletal: denies: back pain, joint swelling, arthralgia Skin: denies: rash, lesions Neurological: headache. denies: weakness, paresthesias Psychiatric: denies: anxiety, depression Hematological/Lymphatic: denies: easy bleeding, easy bruising ED Past Medical Hx - Past Medical History Previous Medical History?: Yes Hx Hypertension: Yes Hx Congestive Heart Failure: No Hx Diabetes: Yes Hx Liver Disease: Yes (Hepatitis C in remission) Hx Sickle Cell Disease: No Hx Arthritis: Yes Hx Headaches / Migraines: Yes Hx Psychiatric Treatment: Yes (Bipolar, Schizophrenia) Hx Asthma: No Hx COPD: No Additional medical history: high cholesterol - Surgical History Past Surgical History?: Yes Additional Surgical History: Tubaligation - Social History Smoking Status: Never Smoker Substance Use Type: None - Medications Home Medications: Home Medications Medication Instructions Recorded Confirmed Last Taken Type Atorvastatin (Nf) [Lipitor] 40 mg PO QHS 08/11/13 10/15/16 10/10/16 History Hydralazine HCl [Apresoline TAB] 50 mg PO Q12H 08/11/13 10/15/16 10/10/16 History Lisinopril/Hydrochlorothiazide 10 mg PO DAILY 08/11/13 10/15/16 10/10/16 History [Zestoretic 20-12.5 mg] Metformin HCl [Fortamet ER] 500 mg PO BID 08/11/13 10/15/16 10/10/16 History Simvastatin (Nf) [Zocor TAB] 20 mg PO HS 08/11/13 10/15/16 10/10/16 History Ziprasidone HCl [Geodon] 80 mg PO DAILY 08/11/13 10/15/16 10/10/16 History carBAMazepine [TEGretol] 200 mg PO HS 08/11/13 10/15/16 10/10/16 History clonazePAM [KlonoPIN] 1 mg PO DAILY 08/11/13 10/15/16 Unknown History diphenhydrAMINE [Benadryl CAP] 50 mg PO HS 08/11/13 10/15/16 10/10/16 History levoFLOXacin [Levaquin TAB] 750 mg PO DAILY #14 tablet 03/01/17 Unknown Rx traMADoL [Ultram 50 MG tab] 50 mg PO Q6HR PRN #14 tablet 08/03/17 Unknown Rx diphenhydrAMINE [Benadryl CAP] 25 mg PO Q6HR PRN #30 capsule 08/16/17 Unknown Rx predniSONE [Deltasone] 40 mg PO QDAY #5 tab 08/16/17 Unknown Rx Cephalexin [Keflex] 500 mg PO QID #40 capsule 03/26/18 Unknown Rx Ibuprofen [Motrin] 600 mg PO Q8H PRN #20 tablet 03/26/18 Unknown Rx Ondansetron [Zofran Odt] 4 mg PO Q8HR PRN #20 tab.rapdis 03/26/18 Unknown Rx Ibuprofen [Motrin 800 MG tab] 800 mg PO Q8HR PRN #12 tablet 04/05/18 Unknown Rx Nystas/Diphen/Xyl Visc/Mylanta 30 ml MM Q4H PRN #150 ml 04/05/18 Unknown Rx [Magic Mouthwash] Triamcinolone Acetonide [Oralone 5 gm DT TID #1 paste..g. 04/05/18 Unknown Rx 0.1% PASTE] Cyclobenzaprine [Flexeril] 10 mg PO TID PRN #12 tablet 07/22/19 Unknown Rx Sulfamethoxazole/Trimethoprim 1 each PO BID 3 Days #6 tablet 07/22/19 Unknown Rx [Bactrim DS TAB] traMADoL [Ultram 50 MG tab] 50 mg PO Q6HR PRN #12 tablet 07/22/19 Unknown Rx Butalb/Acetaminophen/Caffeine 1 - 2 cap PO Q8HR PRN #15 cap 08/01/20 Unknown Rx [Fioricet 50-300-40 mg CAP] Ketorolac [Toradol] 10 mg PO Q8H PRN #20 tablet 08/01/20 Unknown Rx Promethazine [Phenergan] 25 mg PO Q6HR PRN #30 tab 08/01/20 Unknown Rx ED Physical Exam - General Limitations: No Limitations General appearance: alert, in no apparent distress - Head Head exam: Present: atraumatic, normocephalic, normal inspection - Eye Eye exam: Present: normal appearance, PERRL, EOMI Pupils: Present: normal accommodation - ENT ENT exam: Present: normal exam, normal orophraynx, mucous membranes moist, TM's normal bilaterally, normal external ear exam - Neck Neck exam: Present: normal inspection, full ROM - Respiratory Respiratory exam: Present: normal lung sounds bilaterally. Absent: respiratory distress, wheezes, rales, rhonchi, chest wall tenderness, accessory muscle use, decreased breath sounds - Cardiovascular Cardiovascular Exam: Present: regular rate, normal rhythm, normal heart sounds. Absent: systolic murmur, diastolic murmur, rubs, gallop - GI/Abdominal GI/Abdominal exam: Present: soft, normal bowel sounds. Absent: distended, tenderness, guarding, hyperactive bowel sounds, hypoactive bowel sounds, organomegaly - Extremities Exam Extremities exam: Present: normal inspection, full ROM, normal capillary refill - Back Exam Back exam: Present: normal inspection, full ROM. Absent: tenderness, CVA tenderness (R), CVA tenderness (L), muscle spasm, paraspinal tenderness, vertebral tenderness - Neurological Exam Neurological exam: Present: alert, oriented X3, CN II-XII intact, normal gait, reflexes normal - Psychiatric Psychiatric exam: Present: normal affect, normal mood - Skin Skin exam: Present: warm, dry, intact, normal color. Absent: rash ED Course Vital Signs 08/01/20 00:07 Temperature 98.6 F Pulse Rate 93 H Respiratory 18 Rate Blood Pressure 106/74 O2 Sat by Pulse 100 Oximetry ED Medical Decision Making - Medical Decision Making This is a 60-year-old -Citizen Of [place] female with a history of hypertension, ree-sotbdus-bszsuzyjk diabetes, hyperlipidemia, chronic osteoarthritis, migraine headaches, bipolar disorder, schizophrenia and chronic hepatitis C disease in remission who presents to the ED with complaint of acute exacerbation of her chronic migraine headaches characterized by severe frontal pressure-like sharp headache for the last 8 hours. Patient states that she took ebmz-oei-uktohzz medications for pain with no relief. Patient states that these headaches are typical of her chronic migraine headaches that she usually gets at the same time every year. In the ED, patient is alert and oriented x3 and is not in distress. Patient was treated for pain in the ED and observed momentarily in the ED. On reevaluation, patient's headache resolved medications. Physical exam is unremarkable, and patient exhibits no neurological symptoms at this time. Patient was discharged home on prescriptions of headache medications and was advised to follow-up with her primary care physician in 2 to 3 days for reevaluation or return to the ED immediately if symptoms get worse. - Differential Diagnosis Migraine headache; tension headaches; sinus headaches; cluster headaches Critical care attestation.: If time is entered above; I have spent that time in minutes in the direct care of this critically ill patient, excluding procedure time. ED Disposition Clinical Impression: Migraine headache without aura Qualifiers: Status migrainosus presence: without status migrainosus Intractability: not intractable Qualified Code(s): G43.009 - Migraine without aura, not intractable, without status migrainosus Disposition: DC- TO HOME OR SELFCARE Is pt being admited?: No Does the pt Need Aspirin: No Condition: Stable Instructions: Recurrent Migraine Headache, Ampd-nz-Cwyi, Migraine Headache, Bqjh-qj-Trvy Additional Instructions: Take medications with food, drink plenty of fluids and follow-up with your primary care physician in 2 to 3 days for reevaluation. Return to the ED immediately if symptoms get worse. Prescriptions: Butalb/Acetaminophen/Caffeine [Fioricet 50-300-40 mg CAP] 1 - 2 cap PO Q8HR PRN #15 cap PRN Reason: Migraine Headache Promethazine [Phenergan] 25 mg PO Q6HR PRN #30 tab PRN Reason: Nausea Ketorolac [Toradol] 10 mg PO Q8H PRN #20 tablet PRN Reason: Pain Referrals: [facility] [Provider Group] - 3-5 Days Time of Disposition: 02:31 Print Language: VINCENTIAN
== END 2020-08-01 03:00 | disposition home or self-care (01) ==
LOC: ED 23:02
DX: G43.909 Migraine, unspecified, not intractable, without status migrainosus (principal); I10 Essential (primary) hypertension; E11.9 Type 2 diabetes mellitus without complications; M19.90 Unspecified osteoarthritis, unspecified site; F25.0 Schizoaffective disorder, bipolar type; Z98.51 Tubal ligation status; Z79.899 Other long term (current) drug therapy; Z88.8 Allergy status to other drugs, medicaments and biological substances
CPT/HCPCS: 96372; 99282; J1885; Q0162

== ENCOUNTER 2021-08-25 23:03 | Emergency (ER) | payer MEDICAID ==
[2021-08-25 23:23] VITALS: BP 150/102
[2021-08-26] MEDS ORDERED: PROMETHAZINE 25 MG TAB PO ONE (03:27)
[2021-08-26] MEDS ORDERED: KETOROLAC 30 MG/1 ML INJ IM ONE (03:27)
[2021-08-26] MEDS ORDERED: BUTALB/ACETAMINOPHEN/CAFFEINE TAB PO ONE (03:27)
--- NOTE | 2021-08-26 04:26 | Emergency Department Report ---
ED General Adult HPI - General Chief complaint: Headache Stated complaint: HEADACHE Source: patient Mode of arrival: Ambulatory Limitations: No Limitations - History of Present Illness Initial comments: Patient is a 61-year-old -[place] female with a history of hypertension, lna-qgguhlx-ebvojkxis diabetes, chronic osteoarthritis, migraine headaches, bipolar disorder, paranoid schizophrenia, hyperlipidemia and chronic hepatitis C in remission who presented to the ED with acute exacerbation of her chronic recurrent migraine headaches for the last 3 hours despite taking gqvx-eou-djxyyhs medications. Patient states that the headache is typical of her chronic migraine headaches and exacerbation. Patient denies dizziness, syncope, change in vision, chest pain, shortness of breath, cough, nasal and sinus congestion, nausea and vomiting or diarrhea, abdominal pain or neck pain. MD Complaint: Migraine headaches -: Sudden, hour(s) (8) Location: head Radiation: non-radiation Severity scale (0 -10): 8 Quality: aching, sharp Consistency: constant Improves with: none Worsens with: none Associated Symptoms: denies other symptoms, headaches, loss of appetite, malaise, nausea/vomiting. denies: confusion, chest pain, cough, diaphoresis, fever/chills, rash, seizure, shortness of breath, syncope, weakness Treatments Prior to Arrival: none - Related Data Home Medications Medication Instructions Recorded Confirmed Last Taken Atorvastatin (Nf) [Lipitor] 40 mg PO QHS 08/11/13 10/15/16 10/10/16 Hydralazine HCl [Apresoline TAB] 50 mg PO Q12H 08/11/13 10/15/16 10/10/16 Lisinopril/Hydrochlorothiazide 10 mg PO DAILY 08/11/13 10/15/16 10/10/16 [Zestoretic 20-12.5 mg] Metformin HCl [Fortamet ER] 500 mg PO BID 08/11/13 10/15/16 10/10/16 Simvastatin (Nf) [Zocor TAB] 20 mg PO HS 08/11/13 10/15/16 10/10/16 Ziprasidone HCl [Geodon] 80 mg PO DAILY 08/11/13 10/15/16 10/10/16 carBAMazepine [TEGretol] 200 mg PO HS 08/11/13 10/15/16 10/10/16 clonazePAM [KlonoPIN] 1 mg PO DAILY 08/11/13 10/15/16 Unknown diphenhydrAMINE [Benadryl CAP] 50 mg PO HS 08/11/13 10/15/16 10/10/16 Previous Rx's Medication Instructions Recorded Last Taken Type levoFLOXacin [Levaquin TAB] 750 mg PO DAILY #14 tablet 10/21/16 Unknown Rx traMADoL [Ultram 50 MG tab] 50 mg PO Q6HR PRN #14 tablet 08/03/17 Unknown Rx diphenhydrAMINE [Benadryl CAP] 25 mg PO Q6HR PRN #30 capsule 08/16/17 Unknown Rx predniSONE [Deltasone] 40 mg PO QDAY #5 tab 08/16/17 Unknown Rx Ibuprofen [Motrin] 600 mg PO Q8H PRN #20 tablet 03/26/18 Unknown Rx Ondansetron [Zofran Odt] 4 mg PO Q8HR PRN #20 tab.rapdis 03/26/18 Unknown Rx cephALEXin [Keflex] 500 mg PO QID #40 capsule 03/26/18 Unknown Rx Ibuprofen [Motrin 800 MG tab] 800 mg PO Q8HR PRN #12 tablet 04/05/18 Unknown Rx Nystas/Diphen/Xyl Visc/Mylanta 30 ml MM Q4H PRN #150 ml 04/05/18 Unknown Rx [Magic Mouthwash] Triamcinolone Acetonide [Oralone 5 gm DT TID #1 paste..g. 04/05/18 Unknown Rx 0.1% PASTE] Cyclobenzaprine [Flexeril] 10 mg PO TID PRN #12 tablet 07/22/19 Unknown Rx Sulfamethoxazole/Trimethoprim 1 each PO BID 3 Days #6 tablet 07/22/19 Unknown Rx [Bactrim DS TAB] traMADoL [Ultram 50 MG tab] 50 mg PO Q6HR PRN #12 tablet 07/22/19 Unknown Rx Butalb/Acetaminophen/Caffeine 1 - 2 cap PO Q8HR PRN #15 cap 08/26/21 Unknown Rx [Fioricet 50-300-40 mg CAP] Ketorolac [Toradol] 10 mg PO Q8H PRN #20 tablet 08/26/21 Unknown Rx Promethazine [Phenergan] 25 mg PO Q6HR PRN #30 tab 08/26/21 Unknown Rx Allergies Allergy/AdvReac Type Severity Reaction Status Date / Time codeine Allergy Intermediate Swelling Verified 08/25/21 23:20 ED Review of Systems ROS: Stated complaint: HEADACHE Other details as noted in HPI Constitutional: denies: chills, fever Eyes: denies: eye pain, eye discharge, vision change ENT: denies: ear pain, throat pain Respiratory: denies: cough, shortness of breath, wheezing Cardiovascular: denies: chest pain, palpitations Endocrine: no symptoms reported Gastrointestinal: nausea. denies: abdominal pain, vomiting, diarrhea Genitourinary: denies: urgency, dysuria, discharge Musculoskeletal: denies: back pain, joint swelling, arthralgia Skin: denies: rash, lesions Neurological: headache. denies: weakness, paresthesias Psychiatric: anxiety. denies: depression Hematological/Lymphatic: denies: easy bleeding, easy bruising ED Past Medical Hx - Past Medical History Hx Hypertension: Yes Hx Congestive Heart Failure: No Hx Diabetes: Yes Hx Liver Disease: Yes (Hepatitis C in remission) Hx Sickle Cell Disease: No Hx Arthritis: Yes Hx Headaches / Migraines: Yes Hx Psychiatric Treatment: Yes (Bipolar, Schizophrenia) Hx Asthma: No Hx COPD: No Additional medical history: high cholesterol - Surgical History Additional Surgical History: Tubaligation - Social History Smoking Status: Never Smoker Substance Use Type: None - Medications Home Medications: Home Medications Medication Instructions Recorded Confirmed Last Taken Type Atorvastatin (Nf) [Lipitor] 40 mg PO QHS 08/11/13 10/15/16 10/10/16 History Hydralazine HCl [Apresoline TAB] 50 mg PO Q12H 08/11/13 10/15/16 10/10/16 History Lisinopril/Hydrochlorothiazide 10 mg PO DAILY 08/11/13 10/15/16 10/10/16 History [Zestoretic 20-12.5 mg] Metformin HCl [Fortamet ER] 500 mg PO BID 08/11/13 10/15/16 10/10/16 History Simvastatin (Nf) [Zocor TAB] 20 mg PO HS 08/11/13 10/15/16 10/10/16 History Ziprasidone HCl [Geodon] 80 mg PO DAILY 08/11/13 10/15/16 10/10/16 History carBAMazepine [TEGretol] 200 mg PO HS 08/11/13 10/15/16 10/10/16 History clonazePAM [KlonoPIN] 1 mg PO DAILY 08/11/13 10/15/16 Unknown History diphenhydrAMINE [Benadryl CAP] 50 mg PO HS 08/11/13 10/15/16 10/10/16 History levoFLOXacin [Levaquin TAB] 750 mg PO DAILY #14 tablet 10/21/16 Unknown Rx traMADoL [Ultram 50 MG tab] 50 mg PO Q6HR PRN #14 tablet 08/03/17 Unknown Rx diphenhydrAMINE [Benadryl CAP] 25 mg PO Q6HR PRN #30 capsule 08/16/17 Unknown Rx predniSONE [Deltasone] 40 mg PO QDAY #5 tab 08/16/17 Unknown Rx Ibuprofen [Motrin] 600 mg PO Q8H PRN #20 tablet 03/26/18 Unknown Rx Ondansetron [Zofran Odt] 4 mg PO Q8HR PRN #20 tab.rapdis 03/26/18 Unknown Rx cephALEXin [Keflex] 500 mg PO QID #40 capsule 03/26/18 Unknown Rx Ibuprofen [Motrin 800 MG tab] 800 mg PO Q8HR PRN #12 tablet 04/05/18 Unknown Rx Nystas/Diphen/Xyl Visc/Mylanta 30 ml MM Q4H PRN #150 ml 04/05/18 Unknown Rx [Magic Mouthwash] Triamcinolone Acetonide [Oralone 5 gm DT TID #1 paste..g. 04/05/18 Unknown Rx 0.1% PASTE] Cyclobenzaprine [Flexeril] 10 mg PO TID PRN #12 tablet 07/22/19 Unknown Rx Sulfamethoxazole/Trimethoprim 1 each PO BID 3 Days #6 tablet 07/22/19 Unknown Rx [Bactrim DS TAB] traMADoL [Ultram 50 MG tab] 50 mg PO Q6HR PRN #12 tablet 07/22/19 Unknown Rx Butalb/Acetaminophen/Caffeine 1 - 2 cap PO Q8HR PRN #15 cap 08/26/21 Unknown Rx [Fioricet 50-300-40 mg CAP] Ketorolac [Toradol] 10 mg PO Q8H PRN #20 tablet 08/26/21 Unknown Rx Promethazine [Phenergan] 25 mg PO Q6HR PRN #30 tab 08/26/21 Unknown Rx ED Physical Exam - General Limitations: No Limitations General appearance: alert, in no apparent distress - Head Head exam: Present: atraumatic, normocephalic, normal inspection - Eye Eye exam: Present: normal appearance, PERRL, EOMI Pupils: Present: normal accommodation - ENT ENT exam: Present: normal exam, normal orophraynx, mucous membranes moist, TM's normal bilaterally, normal external ear exam - Neck Neck exam: Present: normal inspection, full ROM - Respiratory Respiratory exam: Present: normal lung sounds bilaterally. Absent: respiratory distress, wheezes, rhonchi, chest wall tenderness, decreased breath sounds, prolonged expiratory - Cardiovascular Cardiovascular Exam: Present: regular rate, normal rhythm, normal heart sounds. Absent: systolic murmur, diastolic murmur, rubs, gallop - GI/Abdominal GI/Abdominal exam: Present: soft, normal bowel sounds. Absent: tenderness, guarding, rebound, hyperactive bowel sounds, hypoactive bowel sounds, organomegaly - Extremities Exam Extremities exam: Present: normal inspection, full ROM, normal capillary refill - Back Exam Back exam: Present: normal inspection, full ROM. Absent: tenderness, CVA tenderness (R), CVA tenderness (L), muscle spasm - Neurological Exam Neurological exam: Present: alert, oriented X3, CN II-XII intact, normal gait, reflexes normal - Psychiatric Psychiatric exam: Present: normal affect, normal mood, anxious - Skin Skin exam: Present: warm, dry, intact, normal color. Absent: rash ED Course Vital Signs 08/25/21 23:21 Temperature 98.5 F Pulse Rate 99 H Respiratory 17 Rate Blood Pressure 150/102 O2 Sat by Pulse 97 Oximetry ED Medical Decision Making - Medical Decision Making This is a 61-year-old -[place] female with a history of hypertension, tba-jjjsozd-nazivagfi diabetes, chronic osteoarthritis, migraine headaches, bi polar disorder, paranoid schizophrenia, hyperlipidemia and chronic hepatitis C in remission who presented to the ED with acute exacerbation of her chronic recurrent migraine headaches for the last 3 hours despite taking oyrh-ymj-vogwaqh medications. Patient states that the headache is typical of her chronic migraine headaches and exacerbation. In the ED, patient is alert and oriented x3 and is not in any distress. Patient was treated for pain in the ED. On reevaluation, patient's headache resolved medication. Patient will discharge home on medications and advised to follow-up with her primary care physician in 7 to 10 days for reevaluation return to the ED immediately if symptoms get worse. - Differential Diagnosis Migraine headache; anxiety; tension headache; cluster headache Critical care attestation.: If time is entered above; I have spent that time in minutes in the direct care of this critically ill patient, excluding procedure time. ED Disposition Clinical Impression: Headache, chronic migraine without aura Qualifiers: Status migrainosus presence: with status migrainosus Intractability: not intractable Qualified Code(s): G43.701 - Chronic migraine without aura, not intractable, with status migrainosus Disposition: HOME / SELF CARE / HOMELESS Is pt being admited?: No Does the pt Need Aspirin: No Condition: Stable Instructions: Recurrent Migraine Headache, Brxp-ae-Pxic, Migraine Headache, Cyad-vh-Oinb Additional Instructions: Take medication with food, drink plenty of fluids and follow-up with your primary care physician in 7 to 10 days for reevaluation. Return to the ED immediately if symptoms get worse. Prescriptions: Butalb/Acetaminophen/Caffeine [Fioricet 50-300-40 mg CAP] 1 - 2 cap PO Q8HR PRN #15 cap PRN Reason: Migraine Headache Promethazine [Phenergan] 25 mg PO Q6HR PRN #30 tab PRN Reason: Nausea Ketorolac [Toradol] 10 mg PO Q8H PRN #20 tablet PRN Reason: Pain Referrals: [facility] [Provider Group] - 3-5 Days Time of Disposition: 04:26 Print Language: MACEDONIAN
== END 2021-08-26 05:25 | disposition home or self-care (01) ==
LOC: ED 23:03
DX: G43.701 Chronic migraine without aura, not intractable, with status migrainosus (principal); I10 Essential (primary) hypertension; E11.9 Type 2 diabetes mellitus without complications; Z88.5 Allergy status to narcotic agent
CPT/HCPCS: 96372; 99282; J1885; Q0169

== ENCOUNTER 2021-08-30 19:33 | Emergency (ER) | payer MEDICAID | END 2021-08-31 05:18 | disposition left against medical advice (07) | LOC: ED 19:33 | DX: R10.9 Unspecified abdominal pain (principal); Z53.21 Procedure and treatment not carried out due to patient leaving prior to being seen by health care provider ==